=== PATIENT | male | born 1955 | race Caucasian/White ===

== ENCOUNTER 2021-05-18 08:00 | Outpatient (RCR) | payer MEDICARE, SELFPAY | END 2021-11-03 09:18 | disposition home or self-care (01) | LOC: HO.PTCHIC 08:00 | PROVIDERS: PCP Internal Medicine; Visit Provider Orthopaedic Surgery Sports Medicine | DX: M17.0 Bilateral primary osteoarthritis of knee (principal); M22.42 Chondromalacia patellae, left knee; M22.41 Chondromalacia patellae, right knee | CPT/HCPCS: 97110; 97161 ==

== ENCOUNTER 2021-06-11 07:43 | Outpatient (REF) | payer MEDICARE, SELFPAY ==
--- NOTE | ~2021-06-11 | XR_ITS ---
EXAMINATION: XR AP STANDING VIEW BILATERAL KNEES. XR KNEE, BILATERAL CLINICAL INFORMATION: Bilateral knee pain. COMPARISON: None. TECHNIQUE: AP standing views of both knees. Lateral and sunrise views of each knee. FINDINGS: Right Knee: Marked narrowing with surface remodeling of the medial compartment with mild genu varus. Marginal osteophytes and degenerative sclerosis. Small marginal osteophytes in the patellofemoral and lateral compartments and a lqlap-wa-suwxtbah joint effusion. No acute osseous abnormality. Left Knee: Marked narrowing with surface remodeling of the medial compartment with mild genu varus. Marginal osteophytes and degenerative sclerosis. Small marginal osteophytes in the patellofemoral and lateral compartments and a voteu-qu-qpumpjdh joint effusion. No acute osseous abnormality. XR/XR knee standing BI IMPRESSION: Severe medial compartment osteoarthritis of both knees with ncpxb-sf-vygvcary joint effusions. No acute abnormalities.
--- NOTE | ~2021-06-11 | XR_ITS ---
EXAMINATION: XR AP STANDING VIEW BILATERAL KNEES. XR KNEE, BILATERAL CLINICAL INFORMATION: Bilateral knee pain. COMPARISON: None. TECHNIQUE: AP standing views of both knees. Lateral and sunrise views of each knee. FINDINGS: Right Knee: Marked narrowing with surface remodeling of the medial compartment with mild genu varus. Marginal osteophytes and degenerative sclerosis. Small marginal osteophytes in the patellofemoral and lateral compartments and a jfaom-sc-xsilhraa joint effusion. No acute osseous abnormality. Left Knee: Marked narrowing with surface remodeling of the medial compartment with mild genu varus. Marginal osteophytes and degenerative sclerosis. Small marginal osteophytes in the patellofemoral and lateral compartments and a msgil-zj-fteqbhnw joint effusion. No acute osseous abnormality. XR/XR knee RT 2V IMPRESSION: Severe medial compartment osteoarthritis of both knees with mgwrs-gg-crwswfeh joint effusions. No acute abnormalities.
--- NOTE | ~2021-06-11 | XR_ITS ---
EXAMINATION: XR AP STANDING VIEW BILATERAL KNEES. XR KNEE, BILATERAL CLINICAL INFORMATION: Bilateral knee pain. COMPARISON: None. TECHNIQUE: AP standing views of both knees. Lateral and sunrise views of each knee. FINDINGS: Right Knee: Marked narrowing with surface remodeling of the medial compartment with mild genu varus. Marginal osteophytes and degenerative sclerosis. Small marginal osteophytes in the patellofemoral and lateral compartments and a nrcdb-md-wgrodplr joint effusion. No acute osseous abnormality. Left Knee: Marked narrowing with surface remodeling of the medial compartment with mild genu varus. Marginal osteophytes and degenerative sclerosis. Small marginal osteophytes in the patellofemoral and lateral compartments and a dasvc-km-jhmhpenm joint effusion. No acute osseous abnormality. XR/XR knee LT 2V IMPRESSION: Severe medial compartment osteoarthritis of both knees with pkomo-im-aoybgucb joint effusions. No acute abnormalities.
== END 2021-06-11 07:44 | disposition home or self-care (01) ==
LOC: HO.HOSX 07:43
PROVIDERS: Visit Provider Physician Assistant
DX: M17.0 Bilateral primary osteoarthritis of knee (principal)
CPT/HCPCS: 73560; 73565; 99202

== ENCOUNTER 2021-08-16 06:27 | Outpatient (REF) | payer MEDICARE, SELFPAY ==
[2021-08-16 11:53] LABS: Hematocrit 41.8 % (42.0-52.0); Hemoglobin 13.5 g/dl (14.0-18.0); Mean Corpuscular HGB Conc 32.3 g/dl (31.0-36.0); Mean Corpuscular Hemoglobin 27.3 pg (27.0-33.0); Mean Corpuscular Volume 84.4 fL (80.0-98.0); Mean Platelet Volume 9.9 fL (9.4-12.4); Platelet Count 359 X10*3/uL (160-400); Red Blood Count 4.95 X10*6/uL (4.60-5.80); Red Cell Distribution Width 12.7 % (11.0-16.0); White Blood Count 7.3 X10*3/uL (4.8-10.8)
[2021-08-16 12:15] LABS: Alanine Aminotransferase 22 U/L (0-40); Albumin Level 4.3 g/dL (3.5-5.0); Alkaline Phosphatase 87 U/L (39-117); Anion Gap 11 (12-20); Aspartate Amino Transferase 23 U/L (5-37); Bilirubin Total 0.9 mg/dL (0.0-1.0); Blood Urea Nitrogen 6 mg/dL (9-16); Calcium 9.5 mg/dL (8.4-10.2); Carbon Dioxide 30 mmol/L (22-29); Chloride 100 mmol/L (96-108); Cholesterol 165 mg/dL; Estimated Glomerular Filt Rate > 60; Glucose Fasting 111 mg/dL (60-99); HDL Cholesterol 45 mg/dL; LDL Cholesterol Calculated 92 mg/dl; Potassium 4.4 mmol/L (3.3-5.1); Sodium 137 mmol/L (135-145); Triglycerides 140 mg/dL
== END 2021-08-16 06:28 | disposition home or self-care (01) ==
LOC: HO.HMGCLDS 06:27
PROVIDERS: Visit Provider Internal Medicine
DX: Z12.5 Encounter for screening for malignant neoplasm of prostate (principal); E78.5 Hyperlipidemia, unspecified; I10 Essential (primary) hypertension
CPT/HCPCS: 36415; 80053; 80061; 84153; 85027

== ENCOUNTER → 2021-08-18 13:40 | Outpatient (BNVA) | payer MEDICARE, SELFPAY | PROVIDERS: PCP Internal Medicine; Visit Provider Orthopaedic Surgery | DX: Z13.89 Encounter for screening for other disorder (principal) ==

== ENCOUNTER → 2021-09-09 09:47 | Outpatient (BNVA) | payer MEDICARE, SELFPAY | PROVIDERS: PCP Internal Medicine; Visit Provider Physician Assistant | DX: M17.11 Unilateral primary osteoarthritis, right knee (principal) | CPT/HCPCS: 99212 ==

== ENCOUNTER 2021-09-14 07:58 | Inpatient (IN) | payer MEDICARE, SELFPAY ==
[2021-09-01 12:05] VITALS: BP 131/83; PULSE 68; RESP 18; O2SAT 97; BMI 29.5
--- NOTE | 2021-09-01 12:23 | P.CONAN_ITS ---
Documented by User: Nida Parham NP 09/13/21 09:21 HPI - Anesthesia Eval Consult details Narrative: 66yo M for Right Knee Replacement Total RISK FOR MHSon and nephew tested positive, pt never tested, never rec'd [facility] Active Problems Active Problems: All Active Problems (Updated 09/01/21 @ 12:22 by Anat Luna RN) Osteoarthritis of knees, bilateral (Acute) Hx of colonoscopy (Acute) Venous insufficiency of both lower extremities (Acute) H/O ETOH abuse (Acute) Neuropathy (Acute) Hypertension (Acute) Hyperlipidemia (Acute) Past Medical History Medical History Arthritis COVID-19 vaccine series completed Esophageal stricture Family history of malignant hyperthermia H/O ETOH abuse Hyperlipidemia Hypertension Neuropathy Osteoarthritis of right knee Peripheral neuropathy Venous insufficiency of both lower extremities Family History Family history of problems with anesthesia: Yes (1 of 2 children have MH, nephew with MH, Pt never tested) Surgical History Surgical History History of esophagogastroduodenoscopy (EGD) Hx of colonoscopy History of Problems with Anesthesia: No Social History Social History Household Members Other:: , 2 sons Housing: House Are you a primary care process manager to a significant other at home: No Do you presently have visiting nurse or other home services: No Patient Tobacco Use Status: Former Tobacco user (25 years ago ) Quit Date: 1996 Tobacco use type: Cigarette Years Smoked: 27 Use of substances other than those prescribed or required for medical reasons: Yes Substance Use Type Other:: edibles on occasion Substance Use Frequency: Occasionally Have you been hit, kicked, punched, or otherwise hurt by someone within the past year? If so, by whom?: No Are you DNR?: Yes Advance Directives: No Advance Directives Information Provided: Yes (brochure given) Advance Directives on File: No Recently lost weight without trying: No Eating poorly because of decreased appetite: No Nutrition Risks: No Nutritional Risk Poor oral hygiene: No (lower partial / full upper denture) Current occupational status: retired Current occupation: rt handed Narrative Narrative: No recent illness No CP/SOB with walking on flat ground. Activity limited to pain Meds Allergies Allergy/AdvReac Type Severity Reaction Status Date / Time venlafaxine [From EFFEXOR] AdvReac Intermediate itching/scarlett Verified 09/14/21 08:13 h Home Medications Medication Instructions Recorded Confirmed Last Taken Type atenolol 50 mg tablet 50 mg PO DAILY 06/11/21 09/09/21 09/14/21 06:30 History atorvastatin 20 mg tablet 20 mg PO BEDTIME 06/11/21 09/09/21 Unknown History gabapentin 800 mg tablet 800 mg PO TID 06/11/21 09/09/21 09/14/21 06:30 History lisinopril 40 mg tablet 40 mg PO DAILY 06/11/21 09/09/21 Unknown History amlodipine 5 mg tablet 7.5 mg PO DAILY 08/13/21 09/09/21 09/14/21 06:30 History omeprazole 20 mg capsule,delayed 20 mg PO DAILY 08/13/21 09/09/21 09/14/21 06:30 History release elderberry fruit 460 mg-elderberry 1 cap PO DAILY 09/01/21 09/09/21 Unknown History flower 115 mg capsule tramadol 50 mg tablet 50 mg PO BID 09/01/21 09/09/21 Unknown History vitamin B complex 1 tab PO DAILY 09/01/21 09/09/21 Unknown History Exam Exam Date and Time: September 01, 2021 1223 Height,Weight and Vital Signs: Height 6 ft 3 in Weight 107.048 kg Last Vital Signs Pulse 68 09/01/21 12:05 Resp 18 09/01/21 12:05 BP 131/83 09/01/21 12:05 Pulse Ox 97 09/01/21 12:05 Pertinent Lab Results Pertinent Lab Results: Laboratory Tests 08/16/21 08/16/21 06:35 06:35 WBC 7.3 Hgb 13.5 L Hct 41.8 L Plt Count 359 Sodium 137 Potassium 4.4 Chloride 100 Carbon Dioxide 30 H BUN 6 L Creatinine 0.81 Narrative Narrative: EKG 07/2021 NSR @ 70 Airway Mallampati Class: III TM Dist: >3cm Neck ROM: Full Denture: Upper Partial: Lower Loose/Missing/Broken Teeth: Yes Heart: RRR Lungs: CTAB Assessment and Plan Assessment Anesthesia Assessment: Anesthesia Plan Discussed and PAT Visit Final Anesthetic Review Family History of Problems with Anesthesia: Yes (1 of 2 children have MH, nephew with MH, Pt never tested) History of Problems with Anesthesia: No Documented by User: Kodak Phan MD 09/14/21 10:02 [facility] Past Medical History Medical History Arthritis COVID-19 vaccine series completed Esophageal stricture Family history of malignant hyperthermia H/O ETOH abuse Hyperlipidemia Hypertension Neuropathy Osteoarthritis of right knee Peripheral neuropathy Venous insufficiency of both lower extremities Surgical History Surgical History History of esophagogastroduodenoscopy (EGD) Hx of colonoscopy Social History Social History Household Members Other:: , 2 sons Housing: House Are you a primary care process manager to a significant other at home: No Do you presently have visiting nurse or other home services: No Patient Tobacco Use Status: Former Tobacco user (25 years ago ) Quit Date: 1996 Tobacco use type: Cigarette Years Smoked: 27 Use of substances other than those prescribed or required for medical reasons: Yes Substance Use Type Other:: edibles on occasion Substance Use Frequency: Occasionally Have you been hit, kicked, punched, or otherwise hurt by someone within the past year? If so, by whom?: No Are you DNR?: Yes Advance Directives: No Advance Directives Information Provided: Yes (brochure given) Advance Directives on File: No Recently lost weight without trying: No Eating poorly because of decreased appetite: No Nutrition Risks: No Nutritional Risk Poor oral hygiene: No (lower partial / full upper denture) Current occupational status: retired Current occupation: rt handed Meds Allergies Allergy/AdvReac Type Severity Reaction Status Date / Time venlafaxine [From EFFEXOR] AdvReac Intermediate itching/scarlett Verified 09/14/21 08:13 h Home Medications Medication Instructions Recorded Confirmed Last Taken Type atenolol 50 mg tablet 50 mg PO DAILY 06/11/21 09/09/21 09/14/21 06:30 History atorvastatin 20 mg tablet 20 mg PO BEDTIME 06/11/21 09/09/21 Unknown History gabapentin 800 mg tablet 800 mg PO TID 06/11/21 09/09/21 09/14/21 06:30 History lisinopril 40 mg tablet 40 mg PO DAILY 06/11/21 09/09/21 Unknown History amlodipine 5 mg tablet 7.5 mg PO DAILY 08/13/21 09/09/21 09/14/21 06:30 History omeprazole 20 mg capsule,delayed 20 mg PO DAILY 08/13/21 09/09/21 09/14/21 06:30 History release elderberry fruit 460 mg-elderberry 1 cap PO DAILY 09/01/21 09/09/21 Unknown History flower 115 mg capsule tramadol 50 mg tablet 50 mg PO BID 09/01/21 09/09/21 Unknown History vitamin B complex 1 tab PO DAILY 09/01/21 09/09/21 Unknown History Assessment and Plan Final Anesthetic Review NPO: Yes ASA Class: III Final Preanesthetic Review: No Changes in Pt Med Stat, Meds/Allgs Chart Reviewed, Consent Obtained/Reviewed and Anes Risks/Benef Reviewed Patient Risk: Intermediate Procedure Risk: Intermediate Anesthetic Plan Anesthetic Plan: MAC:, Spinal, Regional Block and Other (Clean technique) Disposition: Standard PACU
[2021-09-01 15:01] LABS: MRSA Nasal PCR NEGATIVE (Negative); SA Nasal PCR POSITIVE (Negative)
[2021-09-14] VITALS (22 sets, daily range): BP systolic 101–195; BP diastolic 55–111; PULSE 50–80; RESP 10–20; TEMP 36.1–37.1; O2SAT 94–100
--- NOTE | ~2021-09-14 | XR_ITS ---
EXAMINATION: XR KNEE, RIGHT CLINICAL INFORMATION: Right knee replacement COMPARISON: Previous x-ray June 2021 TECHNIQUE: 2 views of the right knee. FINDINGS: There is a new 3 component right knee replacement in satisfactory position. No fracture or dislocation is seen. There are cystic or erosive changes of the lateral femoral condyle similar to previous exam. There are postoperative changes to the soft tissues. XR/XR knee RT 2V IMPRESSION: Satisfactory appearance of right knee replacement.
--- NOTE | 2021-09-14 07:36 | MHC.SHP ---
Pre-Procedural Eval Section A Date of Service: 09/14/21 The patient is an INPATIENT: No Changes since office visit: Yes Patient answered all questions; No Cold of Flu in the past 2 weeks, No New Medical Problems and No Changes in Medication The History & Physical has been completed within 30 days and I have reviewed it.: Yes Section B Chief Complaint: osteoarthritis Allergies: Allergies Allergy/AdvReac Type Severity Reaction Status Date / Time venlafaxine [From EFFEXOR] AdvReac Intermediate itching/scarlett Verified 09/09/21 09:57 h Plan I have reviewed the history and physical and performed a pertinent physical examination on my patient. No changes have occurred unless specified.
[2021-09-14] MEDS: Lactated Ringers 1,000 ML 100 ML IVCONT ×2 (08:40→15:05)
[2021-09-14 08:45] LABS: COVID-19 Test Negative (Negative)
--- NOTE | 2021-09-14 11:05 | PM.OP ---
Brief Operative Note Date of Service: 09/14/21 Pre-op diagnosis: right knee OA Post-op diagnosis: same Procedure: Right TKA Implants: Darren triathalon press fit cruciate retaining 12/06/12/35a Surgeon: Edy Walton MD Anesthesia: regional and spinal Was an Metal Fabricating Inspector used for this Procedure?: Yes Metal Fabricating Inspector: Kallie Aguilar Estimated blood loss (mL): 150 IV fluids (mL): 1,000 Pathology: other Condition: stable Disposition: PACU
--- NOTE | 2021-09-14 11:07 | W.PM.OPN ---
Operative Note Operative Note Date of Service: 09/14/21 Narrative: Pre-op diagnosis: right knee OA Post-op diagnosis: same Procedure: Right TKA Implants: [place] triathalon press fit cruciate retaining 12/06/13cr/35a Surgeon: Edy Walton MD Anesthesia: regional and spinal Was an Refinery Operator Visbreaking used for this Procedure?: Yes Refinery Operator Visbreaking: Kallie Aguilar Estimated blood loss (mL): 150 IV fluids (mL): 1,000 Pathology: other Condition: stable Disposition: PACU Procedure in detail: The patient was brought to the operating room and prepped and draped in standard sterile fashion. A time-out was called to identify proper site proper procedure proper surgeon and IV antibiotics were administered. 1 g of IV tranexamic acid was administered. I began by making a midline incision to the retinaculum and performed a medial parapatellar arthrotomy. The patella was translated laterally and the knee was flexed up. The medial compartment was eburnated. I performed a small medial peel and resected the infrapatellar fat pad. Kearney's line was then used to drill my intramedullary femoral guide and my distal femur cut of 11 mm was made in 5 degrees of valgus while protecting the soft tissues. I then measured a # 6 femur and placed my cutting guide and made my anterior posterior and chamfer cuts protecting the soft tissues at all times. Once I was satisfied with my cuts I turned my attention to the tibia. I removed the meniscus medially and laterally and , using an external cutting guide, in line with the tibial crest and the third ray, I made my distal tibial cut in 3 deg slope of while protecting the PCL the posterior soft tissues at all times. An extension block was used to confirm appropriate amount of bony resection. I then sized a #6 tibia and once I was satisfied that there was complete tibial coverage I placed my trial and with the trial femur in place took the knee through range of motion. I was satisfied with the extension and flexion as well as the stability and soft tissue tension at 0, 30 and 90 degrees. I then turned my attention to the patella where I removed 1 cm from the undersurface of the patella and then trialed a 35a patellar button. Again the knee was taken through range of motion I was satisfied with the tracking. I then returned to the femur and drilled my femoral lug holes and prepared the tibia. A femoral bone plug was placed and the knee was irrigated copiously. I then used a werewolf hemostasis wand to cauterize the capsule and meniscal beds circumferentially and the suprapatellar pouch and any bleeding tissue. I then press fit the patella, tibia and femur in standard fashion. I trialed different inserts until I selected a #13 insert. The final insert was placed and a 3 minutes iodine soak with local TXA was performed. The knee was then closed with a running Quill suture, a 3 0 Vicryl and clark on the skin. Patient was then placed in sterile dressing and brought to recovery room in stable condition there were no known complications.
[2021-09-14] MEDS: HYDROmorphone HCl 0.5 MG/0.5 ML SYRINGE 0.25 MG IVPUSH ×4 (12:58→14:04)
[2021-09-14] MEDS: oxyCODONE HCl Immed Release 5 MG TABLET PO (12:59)
[2021-09-14] MEDS: Ketorolac Tromethamine 30 MG/ML VIAL 15 MG IVPUSH (14:14)
[2021-09-14] MEDS: Acetaminophen 325 MG TABLET 975 MG PO (14:14)
[2021-09-14] MEDS: HYDROmorphone HCl 0.5 MG/0.5 ML SYRINGE IVPUSH (14:55)
[2021-09-14] MEDS: ceFAZolin Sodium/Dextrose,Iso 2 GM/50 ML PIGGYBACK IV ×2 (15:12→16:50)
--- NOTE | 2021-09-14 15:57 | PHA.MEDREC ---
Pharmacy Consult ? Medication Reconciliation Pharmacy has completed the medication reconciliation.
[2021-09-14] MEDS: HYDROmorphone HCl 1 MG/ML SYRINGE 0.25 MG IVPUSH (17:46)
[2021-09-14] MEDS: Gabapentin 400 MG CAPSULE 800 MG PO ×2 (17:47→20:04)
--- NOTE | 2021-09-14 18:15 | P.CONHOSP_ITS ---
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 Review of Systems Review of Systems: General no headache, no dizziness no fever chills. CVS no chest pain, no palpitation. Respiratory no cough, no sob. Gastrointestinal no nausea, no vomiting, no abdominal pain no urinary urgency, no frequency Skin no rash Yes all other systems are reviewed and are negative [facility] Medical History Arthritis COVID-19 vaccine series completed Esophageal stricture Family history of malignant hyperthermia H/O ETOH abuse Hyperlipidemia Hypertension Neuropathy Osteoarthritis of right knee Peripheral neuropathy Venous insufficiency of both lower extremities Surgical History History of esophagogastroduodenoscopy (EGD) Hx of colonoscopy Social History Household Members: Family Household Members Other:: , 2 sons Housing: House Are you a primary adult live in caregiver to a significant other at home: No Do you presently have visiting nurse or other home services: No Patient Tobacco Use Status: Former Tobacco user Quit Date: 1996 Tobacco use type: Cigarette Years Smoked: 27 Use of substances other than those prescribed or required for medical reasons: Yes Substance Use Type Other:: edibles on occasion Substance Use Frequency: Occasionally Have you been hit, kicked, punched, or otherwise hurt by someone within the past year? If so, by whom?: No Do you feel safe in your current relationship?: Yes Are you DNR?: Yes Advance Directives: No Advance Directives Information Provided: Yes (brochure given) Advance Directives on File: No Do you have thoughts of harming others: None Do you have a plan to hurt others: No Plan Recently lost weight without trying: No Eating poorly because of decreased appetite: No Nutrition Risks: No Nutritional Risk Poor oral hygiene: No (lower partial / full upper denture) Current occupational status: retired Current occupation: rt handed Meds Allergies Allergy/AdvReac Type Severity Reaction Status Date / Time venlafaxine [From EFFEXOR] AdvReac Intermediate itching/scarlett Verified 09/14/21 08:13 h Active Medications: Current Medications Acetaminophen (Acetaminophen 325 Mg Tablet) 650 mg PO Q6H PRN PRN Reason: Pain, Mild (Pain Scale 1-3) Amlodipine Besylate (Amlodipine Besylate 2.5 Mg Tablet) 7.5 mg PO DAILY [facility]; Protocol Aspirin (Aspirin 325 Mg Tablet) 325 mg PO BID [facility] Atenolol (Atenolol 50 Mg Tablet) 50 mg PO DAILY [facility]; Protocol Atorvastatin Calcium (Atorvastatin Calcium 20 Mg Tablet) 20 mg PO BEDTIME [facility] Celecoxib (Celecoxib 200 Mg Capsule) 200 mg PO BID [facility] Docusate Sodium (Docusate Sodium 100 Mg Capsule) 100 mg PO BID [facility] Gabapentin (Gabapentin 400 Mg Capsule) 800 mg PO TID [facility] Last Admin: 09/14/21 17:47 Dose: 800 mg Documented by: Hydromorphone HCl (Hydromorphone Hcl 1 Mg/Ml Syringe) 0.25 mg IVPUSH Q4H PRN; Protocol PRN Reason: Pain, Severe (Pain Scale 7-10) Last Admin: 09/14/21 17:46 Dose: 0.25 mg Documented by: Lactated Ringer's (Lr) 1,000 mls @ 100 mls/hr IVCONT .Q10H [facility] Last Admin: 09/14/21 15:05 Dose: 100 mls/hr Documented by: Lisinopril (Lisinopril 40 Mg Tablet) 40 mg PO DAILY [facility]; Protocol Omeprazole (Omeprazole 20 Mg Capsule.Dr) 20 mg PO DAILY@0630 [facility] Ondansetron HCl (Ondansetron Hcl 4 Mg/2 Ml Vial) 4 mg IVPUSH Q8H PRN PRN Reason: Nausea and Vomiting Oxycodone HCl (Oxycodone Hcl Immed Release 5 Mg Tablet) 10 mg PO Q4H PRN PRN Reason: Pain, Moderate (Pain Scale 4-6 Oxycodone HCl (Oxycodone Hcl Er 10 Mg Tab.Er.12h) 10 mg PO BID [facility] Sodium Chloride (0.9 % Sodium Chloride Flush 3 Ml Syringe) 3 ml IVFLUSH QSHIFT [facility] Last Admin: 09/14/21 17:51 Dose: Not Given Documented by: Home Medications Medication Instructions Recorded Confirmed Last Taken Type atenolol 50 mg tablet 50 mg PO DAILY 06/11/21 09/09/21 09/14/21 06:30 History atorvastatin 20 mg tablet 20 mg PO BEDTIME 06/11/21 09/14/21 Unknown History gabapentin 800 mg tablet 800 mg PO TID 06/11/21 09/09/21 09/14/21 06:30 History lisinopril 40 mg tablet 40 mg PO DAILY 06/11/21 09/14/21 Unknown History amlodipine 5 mg tablet 7.5 mg PO DAILY 08/13/21 09/09/21 09/14/21 06:30 History omeprazole 20 mg capsule,delayed 20 mg PO DAILY 08/13/21 09/09/21 09/14/21 06:30 History release elderberry fruit 460 mg-elderberry 1 cap PO DAILY 09/01/21 09/14/21 Unknown History flower 115 mg capsule tramadol 50 mg tablet 50 mg PO BID 09/01/21 09/14/21 Unknown History vitamin B complex 1 tab PO DAILY 09/01/21 09/14/21 Unknown History Physical Exam Vital Signs and Narrative: Vital Signs: Last Vital Signs Temp 97.1 F 09/14/21 16:02 Pulse 67 09/14/21 16:02 Resp 17 09/14/21 16:02 BP 171/88 H 09/14/21 16:02 Pulse Ox 96 09/14/21 16:02 BMI result Body Mass Index 29.5 Const: Other: General appears to be in mild distress due to pain HEENT pupils equal round reactive to light and accommodation Neck supple, no JVD. CVS regular rate rhythm, Respiratory lungs clear to auscultation, no respiratory distress, no wheeze, no rhonchi. Gastrointestinal abdomen soft, nontender, bowel sounds audible Extremities no edema. Neuro nonfocal, cranial nerve 2-12 intact, speech clear, no tremor Skin no rash Psych appropriate affect Results Labs Labs: Laboratory Results - last 24 hr 09/14/21 08:05 COVID-19 ([facility]) Negative COVID-19 Clin Com See Note Imaging Radiologist's Impressions: Impressions Knee X-Ray 09/14/21 12:22 IMPRESSION: Satisfactory appearance of right knee replacement. Assessment and Plan (1) H/O ETOH abuse: Status: Acute (2) Neuropathy: Status: Acute (3) Hypertension: Status: Acute (4) Hyperlipidemia: Status: Acute (5) Osteoarthritis of right knee: Status: Acute Plan 66-year-old gentleman with past medical history of hypertension, hyperlipidemia, 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 Right total knee arthroplasty postoperative day 0 Complaining of right knee pain not controlled with current pain medication, on OxyContin 10 mg b.i.d., Celebrex, oxycodone as needed, and low-dose IV Dilaudid 0.25 mg q.4 hours as needed Recommend to increase dose of Dilaudid to 1 mg q.4 hours as needed Encourage use of incentive spirometry, continue stool softeners follow CBC Recommend to DC IV fluids once tolerating diet. 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 as per Ortho Thank you for allowing us to participate in the care of this patient will continue to follow patient along with you
[2021-09-14] MEDS: Celecoxib 200 MG CAPSULE PO (20:04)
[2021-09-14] MEDS: Atorvastatin Calcium 20 MG TABLET PO (20:04)
[2021-09-14] MEDS: Docusate Sodium 100 MG CAPSULE PO (20:04)
[2021-09-14] MEDS: oxyCODONE HCl ER 10 MG TAB.ER.12H PO (20:04)
[2021-09-15] MEDS: Lactated Ringers 1,000 ML 100 ML IVCONT (01:15)
[2021-09-15 03:38] VITALS: BP 142/86; PULSE 73; RESP 17; TEMP 36.9; O2SAT 94
[2021-09-15 06:14] LABS: MANUAL DIFF FLAG NO
[2021-09-15] MEDS: HYDROmorphone HCl 1 MG/ML SYRINGE 0.25 MG IVPUSH (06:15)
[2021-09-15 06:21] LABS: Basophils Percent Auto 0.1 % (0-2); Eosinophils Percent Auto 0.1 % (0-4); Hematocrit 36.2 % (42.0-52.0); Hemoglobin 11.7 g/dl (14.0-18.0); Imm Gran Abs Auto 0.07 X10*3/uL (0.00-0.03); Imm Gran Pct Auto 0.5 % (0.0-0.4); Lymphocytes Absolute Auto 1.5 X10*3/uL (1.2-4.9); Lymphocytes Percent Auto 10.5 % (20-40); Mean Corpuscular HGB Conc 32.3 g/dl (31.0-36.0); Mean Corpuscular Hemoglobin 27.9 pg (27.0-33.0); Mean Corpuscular Volume 86.4 fL (80.0-98.0); Mean Platelet Volume 9.8 fL (9.4-12.4); Monocytes Absolute Auto 1.4 X10*3/uL (0.1-1.2); Monocytes Percent Auto 10.4 % (2-11); Neutrophils Absolute Auto 10.8 x10*3/uL (2.0-8.3); Neutrophils Percent Auto 78.4 % (45-73); Platelet Count 312 X10*3/uL (160-400); Red Blood Count 4.19 X10*6/uL (4.60-5.80); White Blood Count 13.8 X10*3/uL (4.8-10.8)
[2021-09-15] MEDS: Omeprazole 20 MG CAPSULE.DR PO (06:34)
[2021-09-15 06:44] LABS: Anion Gap 11 (12-20); Blood Urea Nitrogen 11 mg/dL (9-16); Calcium 9.1 mg/dL (8.4-10.2); Carbon Dioxide 28 mmol/L (22-29); Chloride 104 mmol/L (96-108); Estimated Glomerular Filt Rate > 60; Glucose Fasting 106 mg/dL (60-99); Potassium 5.4 mmol/L (3.3-5.1); Sodium 138 mmol/L (135-145)
--- NOTE | 2021-09-15 06:56 | PHA.MEDREC ---
Pharmacy Consult ? Medication Reconciliation Pharmacy has reviewed the medication reconciliation.
[2021-09-15 07:20] VITALS: BP 164/84; PULSE 76; RESP 16; TEMP 37.6; O2SAT 97
[2021-09-15] MEDS: Acetaminophen 325 MG TABLET 650 MG PO (07:31)
[2021-09-15] MEDS: Celecoxib 200 MG CAPSULE PO (07:32)
[2021-09-15] MEDS: oxyCODONE HCl Immed Release 5 MG TABLET 10 MG PO ×2 (07:32→11:22)
[2021-09-15] MEDS: Gabapentin 400 MG CAPSULE 800 MG PO (07:33)
[2021-09-15] MEDS: lisinopriL 40 MG TABLET PO (07:33)
[2021-09-15] MEDS: amLODIPine Besylate 2.5 MG TABLET 7.5 MG PO (07:34)
[2021-09-15] MEDS: Docusate Sodium 100 MG CAPSULE PO (07:34)
[2021-09-15] MEDS: atenoloL 50 MG TABLET PO (07:34)
--- NOTE | 2021-09-15 08:08 | P.PNOP_ITS ---
Subjective Subjective Date of Service: 09/15/21 Interval history: POD 1 s/p RT TKA No overnight events resting in bed, pain is tolerable denies sob, cp, palpitations Physical Exam Vital Signs: Vital Signs: Last Vital Signs Temp 99.7 F 09/15/21 07:20 Pulse 76 09/15/21 07:20 Resp 16 09/15/21 07:20 BP 164/84 H 09/15/21 07:20 Pulse Ox 97 09/15/21 07:20 BMI result Body Mass Index 29.5 Const: General: cooperative, healthy appearing and no acute distress Resp: Effort & Inspection: normal respiratory effort and able to speak in complete sentences Cardio: Rate: regular rate Peripheral pulses: Peripheral pulses 2+ throughout GI: Palpation (GI): Soft to palpation Skin: General skin exam: no rashes or lesions noted Extrem: Other: Right knee bandage c/d/i. no erythema, mild swelling. Calf supple non tender. Procedures Date of Service Date of Service: 09/15/21 Progress Note: A&P Assessment and plan (1) Status post total right knee replacement: Status: Acute Assessment and Plan: * Continue pain mgmnt * Begin Aspirin for dvt ppx * begin PT for RT TKA * Dispo planning-Pending PT eval, pain mgmnt Fall Risk Details Current Medications: Current Medications Acetaminophen (Acetaminophen 325 Mg Tablet) 650 mg PO Q6H PRN PRN Reason: Pain, Mild (Pain Scale 1-3) Last Admin: 09/15/21 07:31 Dose: 650 mg Documented by: Amlodipine Besylate (Amlodipine Besylate 2.5 Mg Tablet) 7.5 mg PO DAILY [facility]; Protocol Last Admin: 09/15/21 07:34 Dose: 7.5 mg Documented by: Aspirin (Aspirin 325 Mg Tablet) 325 mg PO BID [facility] Atenolol (Atenolol 50 Mg Tablet) 50 mg PO DAILY [facility]; Protocol Last Admin: 09/15/21 07:34 Dose: 50 mg Documented by: Atorvastatin Calcium (Atorvastatin Calcium 20 Mg Tablet) 20 mg PO BEDTIME [facility] Last Admin: 09/14/21 20:04 Dose: 20 mg Documented by: Celecoxib (Celecoxib 200 Mg Capsule) 200 mg PO BID [facility] Last Admin: 09/15/21 07:32 Dose: 200 mg Documented by: Docusate Sodium (Docusate Sodium 100 Mg Capsule) 100 mg PO BID [facility] Last Admin: 09/15/21 07:34 Dose: 100 mg Documented by: Gabapentin (Gabapentin 400 Mg Capsule) 800 mg PO TID [facility] Last Admin: 09/15/21 07:33 Dose: 800 mg Documented by: Hydromorphone HCl (Hydromorphone Hcl 1 Mg/Ml Syringe) 0.25 mg IVPUSH Q4H PRN; Protocol PRN Reason: Pain, Severe (Pain Scale 7-10) Last Admin: 09/15/21 06:15 Dose: 0.25 mg Documented by: Lactated Ringer's (Lr) 1,000 mls @ 100 mls/hr IVCONT .Q10H [facility] Last Admin: 09/15/21 01:15 Dose: 100 mls/hr Documented by: Lisinopril (Lisinopril 40 Mg Tablet) 40 mg PO DAILY [facility]; Protocol Last Admin: 09/15/21 07:33 Dose: 40 mg Documented by: Omeprazole (Omeprazole 20 Mg Capsule.Dr) 20 mg PO DAILY@0630 [facility] Last Admin: 09/15/21 06:34 Dose: 20 mg Documented by: Ondansetron HCl (Ondansetron Hcl 4 Mg/2 Ml Vial) 4 mg IVPUSH Q8H PRN PRN Reason: Nausea and Vomiting Oxycodone HCl (Oxycodone Hcl Immed Release 5 Mg Tablet) 10 mg PO Q4H PRN PRN Reason: Pain, Moderate (Pain Scale 4-6 Last Admin: 09/15/21 07:32 Dose: 10 mg Documented by: Oxycodone HCl (Oxycodone Hcl Er 10 Mg Tab.Er.12h) 10 mg PO BID [facility] Last Admin: 09/14/21 20:04 Dose: 10 mg Documented by: Sodium Chloride (0.9 % Sodium Chloride Flush 3 Ml Syringe) 3 ml IVFLUSH QSHIFT [facility] Last Admin: 09/15/21 07:34 Dose: Not Given Documented by: Time Spent With Patient Time: Total time spent is greater than 50% in coordination of care (as documented) at patient's floor/unit and/or counseling patient: Time with patient: less than 15 minutes Quality Stroke Does the patient have a stroke diagnosis?: No VTE Prior VTE?: No VTE Risk Level:: Surgical - very high VTE Device Contraindication: N/A - Device Ordered VTE Drug Contraindication: N/A - Med Ordered
[2021-09-15 08:40] VITALS: BP 164/84; PULSE 76; O2SAT 97
[2021-09-15] MEDS: oxyCODONE HCl ER 10 MG TAB.ER.12H PO (09:05)
[2021-09-15] MEDS: Aspirin 325 MG TABLET PO (09:06)
--- NOTE | 2021-09-15 09:47 | MHC.CM.PN ---
PATIENT IS FULLY INDEPENDENT HE LIVES WITH /NEW HCP DOCUMENT TO BE COMPLETED AND COPY PLACED IN CHART. PLAN IS HOME TODAY WITH [facility] AND ASKS FOR A REFERRAL TO [facility], NOW PLACED. PATIENT IS COVID VACCINATED X 3 WITH [facility] BEING ON SEPTEMBER 142020. HE DOES NOT HAVE HIS WALLET AND IS UNABLE TO RECALL THE OTHER DATES ALL SHOTS WERE MODERNA SERIES. IMM 09/15 IN CHART
[2021-09-15 10:30] VITALS: BP 164/84; PULSE 76; O2SAT 97
[2021-09-15 12:00] VITALS: BP 111/69; PULSE 66; RESP 20; TEMP 37.4; O2SAT 97
--- NOTE | 2021-09-15 12:07 | PM.DS ---
DS: Providers Provider Date of Service: 09/15/21 Date of admission: 09/14/21 07:58 Primary care physician: Radha Aguayo MD Consults: 09/14/21 16:48 Consult to Hospitalist Routine Consulting Provider: Hospitalist Reason For Exam: medical management DS: Diagnosis Discharge Diagnosis (1) Status post total right knee replacement: Status: Acute DS: Summary Hospital Course Hospital Course: The patient underwent a successful right total knee arthroplasty, was transferred to PACU and then to the floor to recover. During their stay, their vitals were stable, afebrile at 99.3. Labs were unremarkable, H/H 11.7/36.2 . POD 1 he was started on ASA for DVT ppx, they also received services twice a day. Prior to discharge, their dressing was change, incision clean dry and intact, new Aquacel dressing applied and the plan was to be discharged home with vna svs Time Spent with Patient Time attestation: Total time spent providing and/or coordinating discharge services: Discharge coordination time: Less than 30 minutes Quality: Stroke Does the patient have a stroke diagnosis?: No Physical Exam Vital Signs: Vital Signs: Last Vital Signs Temp 99.7 F 09/15/21 07:20 Pulse 76 09/15/21 10:30 Resp 16 09/15/21 07:20 BP 164/84 H 09/15/21 10:30 Pulse Ox 97 09/15/21 10:30 BMI result Body Mass Index 29.5 Const: General: cooperative, healthy appearing and no acute distress Resp: Effort & Inspection: normal respiratory effort and able to speak in complete sentences Cardio: Rate: regular rate Peripheral pulses: Peripheral pulses 2+ throughout GI: Palpation (GI): Soft to palpation Skin: General skin exam: no rashes or lesions noted Extrem: Other: incision clean dry and intact. Coy intact. No erythema or joint effusion. Calf supple nontender. Neurovascularly intact. DS: Data Data Completed and Pending Pending studies at discharge: Pending at discharge 09/14/21 10:37 Surgical [PTH] Routine Labs on day of discharge: Laboratory Results - last 24 hr 09/15/21 09/15/21 05:45 05:45 WBC 13.8 H RBC 4.19 L Hgb 11.7 L Hct 36.2 L MCV 86.4 MCH 27.9 MCHC 32.3 RDW 13.0 Plt Count 312 MPV 9.8 Immature Gran % (Auto) 0.5 H Neut % (Auto) 78.4 H Lymph % (Auto) 10.5 L [place] % (Auto) 10.4 Eos % (Auto) 0.1 Baso % (Auto) 0.1 Lymph # (Auto) 1.5 [place] # (Auto) 1.4 H Eos # (Auto) 0.0 Baso # (Auto) 0.0 Abs Immat Gran (auto) 0.07 H Absolute Neuts (auto) 10.8 H Absolute Nucleated RBC 0.000 Nucleated RBC % (auto) 0.0 Sodium 138 Potassium 5.4 H D Chloride 104 Carbon Dioxide 28 Anion Gap 11 L BUN 11 D Creatinine 0.76 Estim Creat Clear Calc 123.0 Estimated GFR > 60 Fasting Glucose 106 H Calcium 9.1 Discharge Plan Discharge Patient Disposition: Home Health Service Discharge Diagnosis: RT TKA Referrals: Kallie Aguilar PA-C [Physician Hat Finisher] - 2 Weeks (09/30/21 12:30 [facility] [place] [facility] Kallie Aguilar PA-C) Discharge Medications: New docusate sodium 100 mg Capsule 100 mg PO BID 14 Days Qty: 28 0RF oxycodone 10 mg tablet 10 mg PO Q4H PRN (Reason: Pain, Moderate (Pain Scale 4-6) 7 Days Qty: 42 0RF celecoxib 200 mg Capsule 200 mg PO BID 30 Days Qty: 60 0RF acetaminophen 325 mg Tablet 650 mg PO Q6H PRN (Reason: Pain, Mild (Pain Scale 1-3)) 30 Days Qty: 240 0RF aspirin 325 mg Tablet 325 mg PO BID 42 Days Qty: 84 0RF Continued vitamin B complex Tablet 1 tab PO DAILY 0RF elderberry fruit and flower 460-115 mg Capsule 1 cap PO DAILY 0RF amlodipine 5 mg tablet 7.5 mg PO DAILY 0RF omeprazole 20 mg capsule,delayed release(DR/EC) 20 mg PO DAILY 0RF atenolol 50 mg tablet 50 mg PO DAILY 0RF lisinopril 40 mg tablet 40 mg PO DAILY 0RF gabapentin 800 mg tablet 800 mg PO TID 0RF atorvastatin 20 mg tablet 20 mg PO BEDTIME 0RF (DME[facility] See Rx Instructions .ROUTE .MEDSUPPLY Qty: 1 0RF Rx Instructions: Folding front wheeled walker Discontinued tramadol 50 mg tablet 50 mg PO BID 0RF Discharge Orders: Discharge Order (Routine); Ordered 09/15/21 Ordered By: Kallie Aguilar Diet: regular diet Activity on Discharge: Use cane or walker Stand Alone Forms: Patient Portal Discharge page Care Plan Goals: Restore function of joint Health Concerns: None Plan of Treatment: Physical Therapy Pain management DVT prophylaxis Assessment: Physical Therapy for Total knee arthroplasty: gait training, ROM 0-12, quad strength Limit stair climbing No showering, no tub bath-keep dressing clean, dry and intact No driving x6 weeks Continue Aspirin twice a day x 6 weeks Follow up with [facility] [place] Orthopedics in 2 weeks Discharge Date/Time: 09/15/21 14:04
--- NOTE | 2021-09-15 12:56 | HO.PM.IMPN ---
Subjective Subjective Date of Service: 09/15/21 Interval History: Complaining of persistent right knee pain otherwise no other acute events overnight no nausea no vomiting, tolerating diet no chest pain, no palpitations, no headache or dizziness. Review of Systems Review of Systems: Yes all other systems are reviewed and are negative Physical Exam Vital Signs: Vital Signs: Last Vital Signs Temp 99.3 F 09/15/21 12:00 Pulse 66 09/15/21 12:00 Resp 20 09/15/21 12:00 BP 111/69 09/15/21 12:00 Pulse Ox 97 09/15/21 12:00 BMI result Body Mass Index 29.5 Const: Other: General awake alert, no distress Neck supple, no JVD. CVS? regular rate rhythm, Respiratory lungs clear to auscultation, no respiratory distress, no wheeze, no rhonchi. Gastrointestinal abdomen soft, nontender, bowel sounds audible Extremities no edema. Right knee dressing in place. Neuro nonfocal, cranial nerve 2-12 intact, speech clear, no tremor Skin no rash Psych appropriate affect Objective Data Active Medications Acetaminophen (Acetaminophen 325 Mg Tablet) 650 mg PO Q6H PRN PRN Reason: Pain, Mild (Pain Scale 1-3) Last Admin: 09/15/21 07:31 Dose: 650 mg Documented by: SUPRIYA Amlodipine Besylate (Amlodipine Besylate 2.5 Mg Tablet) 7.5 mg PO DAILY [facility]; Protocol Last Admin: 09/15/21 07:34 Dose: 7.5 mg Documented by: SUPRIYA Aspirin (Aspirin 325 Mg Tablet) 325 mg PO BID [facility] Last Admin: 09/15/21 09:06 Dose: 325 mg Documented by: SUPRIYA Atenolol (Atenolol 50 Mg Tablet) 50 mg PO DAILY [facility]; Protocol Last Admin: 09/15/21 07:34 Dose: 50 mg Documented by: SUPRIYA Atorvastatin Calcium (Atorvastatin Calcium 20 Mg Tablet) 20 mg PO BEDTIME [facility] Last Admin: 09/14/21 20:04 Dose: 20 mg Documented by: NATALIE Celecoxib (Celecoxib 200 Mg Capsule) 200 mg PO BID [facility] Last Admin: 09/15/21 07:32 Dose: 200 mg Documented by: SUPRIYA Docusate Sodium (Docusate Sodium 100 Mg Capsule) 100 mg PO BID [facility] Last Admin: 09/15/21 07:34 Dose: 100 mg Documented by: SUPRIYA Gabapentin (Gabapentin 400 Mg Capsule) 800 mg PO TID [facility] Last Admin: 09/15/21 07:33 Dose: 800 mg Documented by: SUPRIYA Hydromorphone HCl (Hydromorphone Hcl 1 Mg/Ml Syringe) 0.5 mg IVPUSH Q4H PRN; Protocol PRN Reason: Pain, Severe (Pain Scale 7-10) Lisinopril (Lisinopril 40 Mg Tablet) 40 mg PO DAILY [facility]; Protocol Last Admin: 09/15/21 07:33 Dose: 40 mg Documented by: SUPRIYA Omeprazole (Omeprazole 20 Mg Capsule.Dr) 20 mg PO DAILY@0630 [facility] Last Admin: 09/15/21 06:34 Dose: 20 mg Documented by: DAVIDA Ondansetron HCl (Ondansetron Hcl 4 Mg/2 Ml Vial) 4 mg IVPUSH Q8H PRN PRN Reason: Nausea and Vomiting Oxycodone HCl (Oxycodone Hcl Immed Release 5 Mg Tablet) 10 mg PO Q4H PRN PRN Reason: Pain, Moderate (Pain Scale 4-6 Last Admin: 09/15/21 11:22 Dose: 10 mg Documented by: SUPRIYA Oxycodone HCl (Oxycodone Hcl Er 10 Mg Tab.Er.12h) 10 mg PO BID [facility] Last Admin: 09/15/21 09:05 Dose: 10 mg Documented by: SUPRIYA Sodium Chloride (0.9 % Sodium Chloride Flush 3 Ml Syringe) 3 ml IVFLUSH QSHIFT [facility] Last Admin: 09/15/21 07:34 Dose: Not Given Documented by: SUPRIYA Non-Admin Reason: IV Running Labs CBC & Chem 7: 09/15/21 05:45 09/15/21 05:45 Labs: Laboratory Results - last 24 hr 09/15/21 09/15/21 05:45 05:45 MCV 86.4 MCH 27.9 MCHC 32.3 RDW 13.0 Plt Count 312 MPV 9.8 Immature Gran % (Auto) 0.5 H Neut % (Auto) 78.4 H Lymph % (Auto) 10.5 L [place] % (Auto) 10.4 Eos % (Auto) 0.1 Baso % (Auto) 0.1 Lymph # (Auto) 1.5 [place] # (Auto) 1.4 H Eos # (Auto) 0.0 Baso # (Auto) 0.0 Abs Immat Gran (auto) 0.07 H Absolute Neuts (auto) 10.8 H Absolute Nucleated RBC 0.000 Nucleated RBC % (auto) 0.0 Anion Gap 11 L Estim Creat Clear Calc 123.0 Estimated GFR > 60 Fasting Glucose 106 H Calcium 9.1 Assessment and Plan (1) Status post total right knee replacement: Status: Acute (2) Neuropathy: Status: Acute (3) H/O ETOH abuse: Status: Acute (4) Hypertension: Status: Acute (5) Hyperlipidemia: Status: Acute Plan 66-year-old gentleman with past medical history of hypertension, hyperlipidemia, 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 Right total knee arthroplasty postoperative day 1 Complaining of right knee pain but better since yesterday, on OxyContin 10 mg b.i.d., Celebrex, oxycodone as needed, and low-dose IV Dilaudid 0.25 mg q.4 hours as needed will increase to 0.5 mg q.4 hours Encourage use of incentive spirometry, continue stool softeners, hematocrit dropped but stable, follow CBC DC IV fluids tolerating diet. 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 as per Ortho Quality Stroke Does the patient have a stroke diagnosis?: No VTE Prior VTE?: No VTE Risk Level:: Surgical - very high VTE Device Contraindication: N/A - Device Ordered VTE Drug Contraindication: N/A - Med Ordered
--- NOTE | 2021-09-15 12:59 | P.F2F_ITS ---
Service Date Service Date: 09/15/21 Encounter Date of encounter: 09/15/21 Reasons for Services Signs and symptoms assessed: right knee pain, swelling, unsteady balance. Reason for physical therapy: home safety and mobility, therapeutic exercises, restore joint function, gait/transfer training, ADL training and energy conservation Reason for occupational therapy: home safety and mobility, therapeutic exercises, restore joint function, gait/transfer training, ADL training and energy conservation MD Overseeing Care: Edy Walton Homebound: Leaving the home is medically contraindicated at this time without the asist of a device and/or another person due th the listed conditions above and below. Reason homebound: unsteady gait / fall risk, pain with ambulation, poor balance / fall risk and unable to drive Homebound supporting statement: Pt. is considered home bound due to recent surgery. Unable to drive, poor balance, poor gait mechanics. Certification: Based on the above findings, I certify that this patient is confined to the home and needs intermittent residential care, physical therapy and/or speech therapy, or continues to need occupational therapy. The patient is under my care, and I have initiated the establishment of the plan of care. The patient will be followed by a physician who will periodically review the plan of care.
--- NOTE | 2021-09-15 13:17 | W.MHC.F2F ---
Service Date Service Date: 09/15/21 Encounter Date of encounter: 09/15/21 Reasons for Services Signs and symptoms assessed: Right knee pain, swelling, unsteady gait Reason for physical therapy: home safety and mobility, therapeutic exercises, restore joint function, gait/transfer training, ADL training and energy conservation Reason for occupational therapy: home safety and mobility, therapeutic exercises, restore joint function, gait/transfer training, ADL training and energy conservation Homebound: Leaving the home is medically contraindicated at this time without the asist of a device and/or another person due th the listed conditions above and below. Reason homebound: unsteady gait / fall risk, poor balance / fall risk and unable to drive Certification: Based on the above findings, I certify that this patient is confined to the home and needs intermittent physical therapy and/or continues to need occupational therapy. The patient is under my care, and I have initiated the establishment of the plan of care. The patient will be followed by a physician who will periodically review the plan of care.
--- NOTE | 2021-09-15 13:54 | HO.POSTANES ---
Post Anesthesia Evaluation Post Anesthesia Evaluation Vital Signs: Vital Signs Temp Pulse Resp BP Pulse Ox 09/15/21 12:00 99.3 F 66 20 111/69 97 09/15/21 10:30 76 164/84 H 97 09/15/21 08:40 76 164/84 H 97 09/15/21 07:20 99.7 F 76 16 164/84 H 97 09/15/21 03:38 98.5 F 73 17 142/86 H 94 Anesthesia: Spinal and Nerve Block Mental Status: Awake Pain Control: Satisfactory Nausea/Vomiting: None Hydration: Adequate Anesthesia-Related Issues: No Anes. Related Issues
== END 2021-09-15 14:04 | disposition home health service (06) | DRG 470 ==
LOC: HO.SSS 08:55 → HO.SSSA 10:52 → HO.S3 15:15
PROVIDERS: Physician Assistant; Admitting Provider Orthopaedic Surgery; PCP Internal Medicine; Visit Provider Orthopaedic Surgery
PROC: 0SRC0JA Replacement of Right Knee Joint with Synthetic Substitute, Uncemented, Open Approach (ICD-10-PCS; CPT 27447; principal; 2021-09-14 09:40)
DX: M17.11 Unilateral primary osteoarthritis, right knee (principal); E78.5 Hyperlipidemia, unspecified; I10 Essential (primary) hypertension; G62.1 Alcoholic polyneuropathy; F10.11 Alcohol abuse, in remission; Z20.822 Contact with and (suspected) exposure to COVID-19; Z87.891 Personal history of nicotine dependence; Z79.899 Other long term (current) drug therapy
CPT/HCPCS: 27447; 36415; 73560; 80048; 85025; 86850; 86900; 86901; 87635; 87640; 87641; 88305; 88311; 97110; 97116; 97162; C1776; J0690; J1100; J1170; J1885; J2250

== ENCOUNTER → 2021-09-30 12:14 | Outpatient (BNVA) | payer MEDICARE, SELFPAY | PROVIDERS: PCP Internal Medicine; Visit Provider Physician Assistant | DX: Z96.651 Presence of right artificial knee joint (principal) | CPT/HCPCS: 99212 ==

== ENCOUNTER → 2021-10-28 10:20 | Outpatient (BNVA) | payer MEDICARE, SELFPAY | PROVIDERS: Visit Provider Physician Assistant | DX: Z47.1 Aftercare following joint replacement surgery (principal); M25.561 Pain in right knee | CPT/HCPCS: 99212 ==

== ENCOUNTER 2021-11-16 08:00 | Outpatient (RCR) | payer MEDICARE, SELFPAY ==
--- NOTE | 2021-10-05 09:58 | MHC.PT.EP ---
[facility] [place] Office [place] Office [place] Office [address] [place] [address] [phone] F: [phone] F: [phone] F: [phone] F: [phone] Physical Therapy Plan of Care Date of Evaluation: Date of Surgery: 09/14/21 Diagnosis: R TKA Assessment: Patient is a 66 year old R handed male who presents with s/s consistent with R TKA. He does not work but does enjoy staying active, especially with walking and gardening. He has PT at home and now presents to outpatient PT to progress his function. Patient past medical history includes peripheral neuropathy and venous insufficiency. Current impairments include pain, flexibility, ROM, strength, activity tolerance and functional mobility. Functional limitations include decreased ability to walk, transfer, negotiate stairs, garden and participate in hobbies. Patient is motivated with good rehab potential. Skilled PT will address impairments and functional limitations in order to achieve goals. Frequency and Duration: The patient will be seen 2x/week for 5 weeks Short Term Goals: I with HEP - 2 weeks AAROM flexion to 120 - 2 weeks Extension 0 - 2 weeks SLR with no lag - 3 weeks Snf Goals: Symmetrical gait, no AD with amb and stairs - 5 weeks LEFS 56/80 - 5 weeks Strength grossly 4/5 or better - 5 weeks Treatment Plan: Modalities to reduce pain, spasms and effusion. Manual therapy to restore motion and function. Therapeutic exercise to improve strength and flexibility. Neuromuscular re-education for posture and balance. Therapeutic activities to return to functional activities of daily living. Electronically signed by: Zcaarias Mijares, PT Please sign and return to therapist. Thank you for your referral.
--- NOTE | 2022-03-24 10:02 | MHC.PT.DC ---
[facility] [place] Office [place] Office [place] Office [address] [place] [address] [phone] F: [phone] F: [phone] F: [phone] F: [phone] Physical Therapy Discharge Report Diagnosis: R TKA Date of Surgery: 09/14/21 Date of Evaluation: 10/05/21 Date of Discharge: 12/04/21 Treatments to Date: 14 Cancellations to Date: No Shows to Date: Discharge Status: Improved Function Independent with HEP Discharge Summary: 11/16/21: pt contineus to progress well with function, strength. he has been able to be active in his garden x2 weeks. i educated him on proper activity level and monitoring swelling daily. he is on pace to d/c to HEP [place]. 11/10/21: pt with less swelling overall. attempting to resolve lateral discomfort by address ITB tightness. encouraged to work hip strength daily at home. 11/08/21: resumed shuttle and wobble board. no adverse reactions. we will continue to progress as tolerated, addressing last knee pain. 11/03/21: pt progressed with activity today. reduced swelling noted. reduced discomfort with stair activities. 11/01/21: less swelling today, but still present. we continued with similar program to last visit to continues to address this. 10/29/21: gentle motion and swelling management today as knee was more swollen and pt noted increased soreness after last visit 10/26/21: minor compensatory strategies present with 8 step up. pt educated on this. 10/22/21: pt with minor lateral pain with stair descent. otherwise, no new s/s. some swelling still present at end of PT so we educated on use of CP as needed. 10/19/21: pt progressing very well overall. good ROM, strength, balance. pain is reducing. still needs improvement with eccentric control. 10/15/21: pt continues to improved descent on stairs. educated on how to work on stairs at home. we will continue to progress as tolerated. 10/12/21: pt progressing well with skilled PT for improved ROM, strength, balance and function. AAROM is maintaining. strength is improving. pt challenged with balance, requiring handheld assist within 10 seconds consistently. 10/07/21: pt progressed with stairs. no adverse reactions. difficulty with controlling descent. Patient is a 66 year old R handed male who presents with s/s consistent with R TKA. He does not work but does enjoy staying active, especially with walking and gardening. He has PT at home and now presents to outpatient PT to progress his function. Patient past medical history includes peripheral neuropathy and venous insufficiency. Current impairments include pain, flexibility, ROM, strength, activity tolerance and functional mobility. Functional limitations include decreased ability to walk, transfer, negotiate stairs, garden and participate in hobbies. Patient is motivated with good rehab potential. Skilled PT will address impairments and functional limitations in order to achieve goals. Electronically signed by: Zacarias Mijares, PT Please sign and return to therapist. Thank you for your referral.
== END 2022-03-24 10:02 | disposition home or self-care (01) ==
LOC: HO.PTCHIC 08:00
PROVIDERS: PCP Internal Medicine; Visit Provider Physician Assistant
DX: Z96.651 Presence of right artificial knee joint (principal)
CPT/HCPCS: 97110; 97112; 97140; 97162; 97530

== ENCOUNTER 2021-12-09 08:30 | Outpatient (REF) | payer MEDICARE, SELFPAY ==
--- NOTE | ~2021-12-09 | XR_ITS ---
EXAMINATION: KNEE X-RAY CLINICAL INFORMATION: Pain COMPARISON: Previous x-ray August 2021 TECHNIQUE: Standing AP view of both knees and lateral and sunrise view of the right knee FINDINGS: Right: There is a 3 component right knee replacement in satisfactory position. No fracture or dislocation is seen. There is a joint effusion. There is soft tissue swelling anterior to the knee. 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 XR/XR knee standing BI IMPRESSION: Right: Satisfactory appearance of right knee replacement. Joint effusion and soft tissue swelling.
--- NOTE | ~2021-12-09 | XR_ITS ---
EXAMINATION: KNEE X-RAY CLINICAL INFORMATION: Pain COMPARISON: Previous x-ray August 2021 TECHNIQUE: Standing AP view of both knees and lateral and sunrise view of the right knee FINDINGS: Right: There is a 3 component right knee replacement in satisfactory position. No fracture or dislocation is seen. There is a joint effusion. There is soft tissue swelling anterior to the knee. 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 XR/XR knee RT 2V IMPRESSION: Right: Satisfactory appearance of right knee replacement. Joint effusion and soft tissue swelling.
== END 2021-12-09 08:31 | disposition home or self-care (01) ==
LOC: HO.HOSX 08:30
PROVIDERS: Visit Provider Orthopaedic Surgery
DX: M25.561 Pain in right knee (principal); R60.0 Localized edema
CPT/HCPCS: 73560; 73565

== ENCOUNTER → 2022-01-14 09:20 | Outpatient (BNVA) | payer MEDICARE, SELFPAY | PROVIDERS: PCP Internal Medicine; Visit Provider Orthopaedic Surgery | DX: M66.251 Spontaneous rupture of extensor tendons, right thigh (principal); Z96.651 Presence of right artificial knee joint | CPT/HCPCS: 99212 ==

== ENCOUNTER 2022-03-24 07:47 | Outpatient (REF) | payer MEDICARE, SELFPAY ==
[2022-03-24 11:15] LABS: MANUAL DIFF FLAG NO
[2022-03-24 11:27] LABS: Basophils Absolute Auto 0.1 X10*3/uL (0.0-0.2); Basophils Percent Auto 1.5 % (0-2); Eosinophils Absolute Auto 0.5 X10*3/uL (0.0-0.4); Eosinophils Percent Auto 7.4 % (0-4); Hematocrit 38.7 % (42.0-52.0); Hemoglobin 12.7 g/dl (14.0-18.0); Imm Gran Abs Auto 0.02 X10*3/uL (0.00-0.03); Imm Gran Pct Auto 0.3 % (0.0-0.4); Lymphocytes Absolute Auto 2.1 X10*3/uL (1.2-4.9); Lymphocytes Percent Auto 32.5 % (20-40); Mean Corpuscular HGB Conc 32.8 g/dl (31.0-36.0); Mean Corpuscular Hemoglobin 27.9 pg (27.0-33.0); Mean Corpuscular Volume 85.1 fL (80.0-98.0); Mean Platelet Volume 9.7 fL (9.4-12.4); Monocytes Absolute Auto 0.6 X10*3/uL (0.1-1.2); Monocytes Percent Auto 9.2 % (2-11); Neutrophils Absolute Auto 3.2 x10*3/uL (2.0-8.3); Neutrophils Percent Auto 49.1 % (45-73); Platelet Count 362 X10*3/uL (160-400); Red Blood Count 4.55 X10*6/uL (4.60-5.80); Red Cell Distribution Width 13.1 % (11.0-16.0); White Blood Count 6.5 X10*3/uL (4.8-10.8)
[2022-03-24 11:30] LABS: Estimated Average Glucose 103 mg/dL; Hemoglobin A1C 114.6166 umol/L; Hemoglobin A1c % 5.2 %
[2022-03-24 11:54] LABS: Alanine Aminotransferase 20 U/L (0-40); Albumin Level 4.2 g/dL (3.5-5.0); Alkaline Phosphatase 100 U/L (39-117); Anion Gap 15 (12-20); Aspartate Amino Transferase 25 U/L (5-37); Bilirubin Total 0.5 mg/dL (0.0-1.0); Blood Urea Nitrogen 5 mg/dL (9-16); Calcium 9.3 mg/dL (8.4-10.2); Carbon Dioxide 27 mmol/L (22-29); Chloride 100 mmol/L (96-108); Cholesterol 137 mg/dL; Estimated Glomerular Filt Rate > 60; Glucose Fasting 110 mg/dL (60-99); HDL Cholesterol 42 mg/dL; Iron 54 mcg/dL (45-160); LDL Cholesterol Calculated 76 mg/dl; Percent Iron Saturation 23 % (15-50); Potassium 4.9 mmol/L (3.3-5.1); Sodium 137 mmol/L (135-145); Total Iron Binding Capacity 230 mcg/dL (228-428); Total Protein 6.7 g/dL (6.5-8.0); Triglycerides 97 mg/dL; Unsaturated Iron Binding 176 ug/dL
[2022-03-24 12:17] LABS: PSA,Total (Free>4and<10) 0.37 ng/mL (0.00-4.00)
[2022-03-24 12:42] LABS: Folate > 20.0 ng/mL (> or = 4.0); Vitamin B12 440 pg/mL (200-900)
== END 2022-03-24 07:48 | disposition home or self-care (01) ==
LOC: HO.HMGCLDS 07:47
PROVIDERS: PCP Internal Medicine; Visit Provider Internal Medicine
DX: Z12.5 Encounter for screening for malignant neoplasm of prostate (principal); E78.5 Hyperlipidemia, unspecified; G62.9 Polyneuropathy, unspecified; I10 Essential (primary) hypertension; D64.9 Anemia, unspecified
CPT/HCPCS: 36415; 80053; 80061; 82607; 82746; 83036; 83540; 84153; 85025

== ENCOUNTER → 2022-04-15 09:20 | Outpatient (BNVA) | payer MEDICARE, SELFPAY | PROVIDERS: PCP Internal Medicine; Visit Provider Orthopaedic Surgery | DX: M66.251 Spontaneous rupture of extensor tendons, right thigh (principal); M17.12 Unilateral primary osteoarthritis, left knee; Z96.651 Presence of right artificial knee joint | CPT/HCPCS: 99212 ==

== ENCOUNTER 2022-09-20 06:31 | Outpatient (REF) | payer MEDICARE, SELFPAY ==
[2022-09-20 11:31] LABS: MANUAL DIFF FLAG NO
[2022-09-20 11:58] LABS: Basophils Absolute Auto 0.1 X10*3/uL (0.0-0.2); Basophils Percent Auto 1.2 % (0-2); Eosinophils Absolute Auto 0.5 X10*3/uL (0.0-0.4); Eosinophils Percent Auto 5.5 % (0-4); Imm Gran Abs Auto 0.05 X10*3/uL (0.00-0.03); Imm Gran Pct Auto 0.6 % (0.0-0.4); Lymphocytes Absolute Auto 2.1 X10*3/uL (1.2-4.9); Lymphocytes Percent Auto 25.9 % (20-40); Mean Corpuscular HGB Conc 32.5 g/dl (31.0-36.0); Mean Corpuscular Hemoglobin 27.8 pg (27.0-33.0); Mean Corpuscular Volume 85.7 fL (80.0-98.0); Mean Platelet Volume 9.4 fL (9.4-12.4); Monocytes Absolute Auto 0.7 X10*3/uL (0.1-1.2); Monocytes Percent Auto 8.6 % (2-11); Neutrophils Absolute Auto 4.8 x10*3/uL (2.0-8.3); Neutrophils Percent Auto 58.2 % (45-73); Platelet Count 345 X10*3/uL (160-400); Red Blood Count 4.67 X10*6/uL (4.60-5.80); Red Cell Distribution Width 13.2 % (11.0-16.0); White Blood Count 8.2 X10*3/uL (4.8-10.8)
[2022-09-20 12:03] LABS: Estimated Average Glucose 105 mg/dL; Hemoglobin A1c % 5.3 %
[2022-09-20 12:17] LABS: Alanine Aminotransferase 18 U/L (0-40); Alkaline Phosphatase 89 U/L (39-117); Anion Gap 11 (12-20); Aspartate Amino Transferase 21 U/L (5-37); Bilirubin Total 1.2 mg/dL (0.0-1.0); Blood Urea Nitrogen 9 mg/dL (9-16); Calcium 8.8 mg/dL (8.4-10.2); Carbon Dioxide 28 mmol/L (22-29); Chloride 101 mmol/L (96-108); Estimated Glomerular Filt Rate > 60; Glucose Fasting 108 mg/dL (60-99); Sodium 136 mmol/L (135-145); Total Protein 6.3 g/dL (6.5-8.0)
[2022-09-20 12:48] LABS: Folate 18.1 ng/mL (> or = 4.0); Vitamin B12 485 pg/mL (200-900)
== END 2022-09-20 06:32 | disposition home or self-care (01) ==
LOC: HO.HMGCLDS 06:31
PROVIDERS: PCP Internal Medicine; Visit Provider Internal Medicine
DX: D64.9 Anemia, unspecified (principal); I10 Essential (primary) hypertension; E78.5 Hyperlipidemia, unspecified; R73.9 Hyperglycemia, unspecified
CPT/HCPCS: 36415; 80053; 82607; 82746; 83036; 85025

== ENCOUNTER 2023-04-19 06:31 | Outpatient (REF) | payer OTHER, SELFPAY ==
[2023-04-19 11:15] LABS: Appearance Urine Clear; Color Urine Yellow; Glucose Urine UA Negative (Negative); Leukocyte Esterase Urine Negative (Negative); MANUAL DIFF FLAG NO; Nitrite Urine Negative (Negative); Urine Blood Negative (Negative); Urine Ketones Negative (Negative); Urine Protein Negative (Neg-Trace)
[2023-04-19 11:20] LABS: Bacteria Urine None Seen (None Seen); Hyaline Casts Urine 0-2 /LPF (0-2); RBC Urine 0-2 /HPF (0-2); Squamous Epithelial Cell Urine 0-2 /HPF (0-2); WBC Urine 0-5 /HPF (0-5)
[2023-04-19 11:26] LABS: Basophils Absolute Auto 0.1 X10*3/uL (0.0-0.2); Basophils Percent Auto 1.1 % (0-2); Eosinophils Absolute Auto 0.4 X10*3/uL (0.0-0.4); Eosinophils Percent Auto 6.2 % (0-4); Hematocrit 40.2 % (42.0-52.0); Hemoglobin 12.8 g/dl (14.0-18.0); Imm Gran Abs Auto 0.03 X10*3/uL (0.00-0.03); Imm Gran Pct Auto 0.5 % (0.0-0.4); Lymphocytes Percent Auto 29.6 % (20-40); Mean Corpuscular HGB Conc 31.8 g/dl (31.0-36.0); Mean Corpuscular Hemoglobin 27.1 pg (27.0-33.0); Mean Platelet Volume 9.7 fL (9.4-12.4); Monocytes Absolute Auto 0.5 X10*3/uL (0.1-1.2); Monocytes Percent Auto 7.8 % (2-11); Neutrophils Absolute Auto 3.6 x10*3/uL (2.0-8.3); Neutrophils Percent Auto 54.8 % (45-73); Platelet Count 334 X10*3/uL (160-400); Red Blood Count 4.73 X10*6/uL (4.60-5.80); White Blood Count 6.6 X10*3/uL (4.8-10.8)
[2023-04-19 11:31] LABS: Estimated Average Glucose 100 mg/dL; Hemoglobin A1c % 5.1 % (<6.0)
[2023-04-19 11:37] LABS: Alanine Aminotransferase 19 U/L (0-40); Albumin Level 4.2 g/dL (3.5-5.0); Alkaline Phosphatase 87 U/L (39-117); Anion Gap 13 (12-20); Aspartate Amino Transferase 28 U/L (5-37); Bilirubin Total 0.6 mg/dL (0.0-1.0); Blood Urea Nitrogen 9 mg/dL (9-16); Calcium 9.4 mg/dL (8.4-10.2); Carbon Dioxide 27 mmol/L (22-29); Chloride 104 mmol/L (96-108); Cholesterol 162 mg/dL (<200); Estimated Glomerular Filt Rate > 60; Glucose Fasting 110 mg/dL (60-99); HDL Cholesterol 47 mg/dL (>40); LDL Cholesterol Calculated 100 mg/dL (<100); Potassium 4.4 mmol/L (3.3-5.1); Sodium 140 mmol/L (135-145); Total Protein 6.3 g/dL (6.5-8.0); Triglycerides 78 mg/dL (<150)
[2023-04-19 11:51] LABS: PSA,Total (Free>4and<10) 0.28 ng/mL (0.00-4.00)
== END 2023-04-19 06:32 | disposition home or self-care (01) ==
LOC: HO.HMGCLDS 06:31
PROVIDERS: PCP Internal Medicine; Visit Provider Internal Medicine
DX: Z12.5 Encounter for screening for malignant neoplasm of prostate (principal); R73.9 Hyperglycemia, unspecified; I10 Essential (primary) hypertension; E78.5 Hyperlipidemia, unspecified
CPT/HCPCS: 36415; 80053; 80061; 81001; 83036; 84153; 85025

== ENCOUNTER 2023-04-28 12:49 | Outpatient (AMB) | payer OTHER, SELFPAY ==
[2023-04-28 12:59] VITALS: BP 120/74; PULSE 76; O2SAT 94; BMI 29.5
--- NOTE | 2023-04-28 12:59 | MHC.PC.OV ---
Vital Signs 04/28/23 12:59 Height 6 ft 3 in Weight 236 lb BMI 29.5 BP 120/74 Blood Pressure Location Lt brachial Position Sitting Pulse 76 Pulse Source Pulse Oximeter Pulse Oximetry (%) 94 Oxygen Delivery Method Room Air Intake Visit Reasons: Physical Exam Intake Note: Pt is here today for PE. Allergies venlafaxine [From EFFEXOR] Adverse Reaction (Intermediate, Verified 04/28/23 13:03) itching/rash Medication List - Last Reconciled 04/28/23 by Radha Aguayo MD acetaminophen 650 mg (2 x 325 mg) PO Q6H PRN 30 days amlodipine 10 mg PO DAILY atenolol 50 mg PO DAILY atorvastatin 20 mg PO BEDTIME celecoxib 200 mg PO BID elderberry fruit and flower 460-115 mg 1 cap PO DAILY gabapentin 800 mg PO TID lisinopril 40 mg PO DAILY omeprazole 20 mg PO DAILY tramadol 50 mg PO BID vitamin B complex 1 tab PO DAILY walker Folding front wheeled walker Tobacco use date assessed: 04/28/23 Dental Screening Dental Screen Date: 04/28/23 Did you have a dental visit in the last 12 months?: Yes Did you have a dental problem in the last 6 months where you did not have access to dental care?: No Was dental information given to patient?: Patient has dentist HPI Physical Exam HPI Details Pt presents for PE. Complains of chronic left knee pain and stiffness. Patient follows up with orthopedic surgeon and is contemplating knee replacement surgery [facility] Medical History Osteoarthritis of right knee Family history of malignant hyperthermia Esophageal stricture COVID-19 vaccine series completed Venous insufficiency of both lower extremities H/O ETOH abuse Hyperlipidemia Hypertension Neuropathy Arthritis Peripheral neuropathy Surgical History History of esophagogastroduodenoscopy (EGD) Hx of colonoscopy Social History Household Members: Family Household Members Other:: , 2 sons Housing: House Are you a primary workforce investment act career manager to a significant other at home: No Do you presently have visiting nurse or other home services: No Patient Tobacco Use Status: Former Tobacco user Quit Date: 1996 Tobacco use type: Cigarette Years Smoked: 27 e-Cigarette/Vaping Use: Never Used service: No Current occupational status: retired Current occupation: rt handed Cognitive needs: No Hearing needs: No Vision needs: No Questionnaire Thrive Questionnaire Date Thrive assessed: 08/13/21 DAVID-7 AMB Questionnaire DAVID-7 Date DAVID - 7 assessed: 08/13/21 Source: Developed by Drs. Buzz Peoples, Amisha Bennett, Osmar Patel and colleagues, with an educational krystle from [employer]. Review of Systems Const All systems reviewed & are unremarkable except as noted in HPI and below Reports no additional complaints Eyes Reports no additional complaints ENT Reports no additional complaints Card Reports no additional complaints Resp Reports no additional complaints GI Reports no additional complaints Reports no additional complaints Physical exam (Primary Care) Vital Signs: Last Vital Signs Pulse 76 04/28/23 12:59 BP 120/74 04/28/23 12:59 Pulse Ox 94 04/28/23 12:59 Oxygen Delivery Method Room Air 04/28/23 12:59 BMI result Body Mass Index 29.5 Tobacco/Smoking Status: Tobacco use Status Tobacco use date assessed 04/28/23 04/28/23 13:04 Patient Tobacco Use Status Former Tobacco user 04/28/23 12:59 Tobacco use type Cigarette 04/28/23 12:59 e-Cigarette/Vaping Use Never Used 04/28/23 12:59 Thrive Assessment: Date of Thrive Assessment Date Thrive assessed 08/13/21 04/28/23 12:59 Const General: no acute distress HENMT Head: Yes normal to inspection Ears: hearing grossly normal bilaterally General nose exam: Normal external nose present Face and sinus: Yes normal facial exam Mouth: Normal oral and palatal mucosa present Eyes General: appearance normal, both eyes and all related structures Neck Neck: Yes no lymphadenopathy and Yes supple Resp Effort & Inspection: normal respiratory effort Auscultation: clear to auscultation bilaterally Cardio Rhythm: regular rhythm Heart sounds: S1 normal heart sound present and S2 normal heart sound present GI Inspection: Yes normal to inspection Palpation (GI): Soft to palpation Percussion: Yes normal to percussion Auscultation: normal bowel sounds Assessment and Plan Assessment & Plan (1) Hyperglycemia: Code(s): R73.9 - Hyperglycemia, unspecified Plan: A1C IS 5.1, CONTINUE ADA DIET REGULAR EXERCISE (2) Hypertension: Code(s): I10 - Essential (primary) hypertension Plan: Continue current medications (3) Hyperlipidemia: Code(s): E78.5 - Hyperlipidemia, unspecified Plan: Continue statin (4) Annual physical exam: Code(s): Z00.00 - Encounter for general adult medical examination without abnormal findings Plan: Well-balanced diet regular exercise weight loss discussed with the patient. He follows up with orthopedic surgeon for advanced osteoarthritis of left knee. Orders: Orders Comprehensive Gatzke. Panel Fast 365 Days D64.9 - Anemia, unspecified, E78.5 - Hyperlipidemia, unspecified, I10 - Essential (primary) hypertension, R73.9 - Hyperglycemia, unspecified Complete Blood Count Auto Diff 365 Days D64.9 - Anemia, unspecified, E78.5 - Hyperlipidemia, unspecified, I10 - Essential (primary) hypertension, R73.9 - Hyperglycemia, unspecified Lipid Panel 365 Days D64.9 - Anemia, unspecified, E78.5 - Hyperlipidemia, unspecified, I10 - Essential (primary) hypertension, R73.9 - Hyperglycemia, unspecified TSH reflex Free T4 365 Days D64.9 - Anemia, unspecified, E78.5 - Hyperlipidemia, unspecified, I10 - Essential (primary) hypertension, R73.9 - Hyperglycemia, unspecified PSA,Total (Free>4and<10) 365 Days D64.9 - Anemia, unspecified, E78.5 - Hyperlipidemia, unspecified, I10 - Essential (primary) hypertension, R73.9 - Hyperglycemia, unspecified Hemoglobin A1c 365 Days R73.9 - Hyperglycemia, unspecified Coding Level of Care Code Est Pt Prev Care >65y(55437) Diagnoses Hyperglycemia R73.9 Hypertension I10 Hyperlipidemia E78.5 Annual physical exam Z00.00
== END 2023-04-28 13:45 | disposition home or self-care (01) ==
PROVIDERS: Visit Provider Internal Medicine
DX: R73.9 Hyperglycemia, unspecified (principal); I10 Essential (primary) hypertension; E78.5 Hyperlipidemia, unspecified; Z00.00 Encounter for general adult medical examination without abnormal findings
CPT/HCPCS: 99397

== ENCOUNTER 2023-06-01 12:48 | Outpatient (REF) | payer OTHER, SELFPAY ==
--- NOTE | ~2023-06-01 | XR_ITS ---
EXAMINATION: X-RAY BILATERAL KNEES LATERAL AND SUNRISE VIEWS X-RAY BILATERAL KNEES AP STANDING VIEW CLINICAL INFORMATION: Pain. COMPARISON: Radiograph right knee 12/09/2021. X-ray AP standing views of both knees 12/09/2021. X-ray left knee 06/11/2021. TECHNIQUE: Lateral and sunrise views of each knee were obtained. AP bilateral standing view of the knees was obtained. FINDINGS: Prosthetic components of the right total knee arthroplasty are appropriately aligned without periprosthetic fracture or abnormal lucency. No component migration. No acute fractures or subluxation. Severe joint space narrowing of the medial compartment of the left knee with associated subcortical sclerosis and marginal osteophytes. Small bilateral joint effusions not significantly changed. Scattered vascular calcifications. XR/XR knee standing BI IMPRESSION: 1. Appropriate alignment of the right total knee arthroplasty without evidence of complications. 2. No acute fractures or subluxation. 3. Severe degenerative osteoarthritis of the medial compartment of the left knee. 4. Small small chronic bilateral joint effusions.
--- NOTE | ~2023-06-01 | XR_ITS ---
EXAMINATION: X-RAY BILATERAL KNEES LATERAL AND SUNRISE VIEWS X-RAY BILATERAL KNEES AP STANDING VIEW CLINICAL INFORMATION: Pain. COMPARISON: Radiograph right knee 12/09/2021. X-ray AP standing views of both knees 12/09/2021. X-ray left knee 06/11/2021. TECHNIQUE: Lateral and sunrise views of each knee were obtained. AP bilateral standing view of the knees was obtained. FINDINGS: Prosthetic components of the right total knee arthroplasty are appropriately aligned without periprosthetic fracture or abnormal lucency. No component migration. No acute fractures or subluxation. Severe joint space narrowing of the medial compartment of the left knee with associated subcortical sclerosis and marginal osteophytes. Small bilateral joint effusions not significantly changed. Scattered vascular calcifications. XR/XR knee RT 2V IMPRESSION: 1. Appropriate alignment of the right total knee arthroplasty without evidence of complications. 2. No acute fractures or subluxation. 3. Severe degenerative osteoarthritis of the medial compartment of the left knee. 4. Small small chronic bilateral joint effusions.
--- NOTE | ~2023-06-01 | XR_ITS ---
EXAMINATION: X-RAY BILATERAL KNEES LATERAL AND SUNRISE VIEWS X-RAY BILATERAL KNEES AP STANDING VIEW CLINICAL INFORMATION: Pain. COMPARISON: Radiograph right knee 12/09/2021. X-ray AP standing views of both knees 12/09/2021. X-ray left knee 06/11/2021. TECHNIQUE: Lateral and sunrise views of each knee were obtained. AP bilateral standing view of the knees was obtained. FINDINGS: Prosthetic components of the right total knee arthroplasty are appropriately aligned without periprosthetic fracture or abnormal lucency. No component migration. No acute fractures or subluxation. Severe joint space narrowing of the medial compartment of the left knee with associated subcortical sclerosis and marginal osteophytes. Small bilateral joint effusions not significantly changed. Scattered vascular calcifications. XR/XR knee LT 2V IMPRESSION: 1. Appropriate alignment of the right total knee arthroplasty without evidence of complications. 2. No acute fractures or subluxation. 3. Severe degenerative osteoarthritis of the medial compartment of the left knee. 4. Small small chronic bilateral joint effusions.
== END 2023-06-01 12:49 | disposition home or self-care (01) ==
LOC: HO.HOSX 12:48
PROVIDERS: Visit Provider Orthopaedic Surgery
DX: M17.12 Unilateral primary osteoarthritis, left knee (principal); M25.561 Pain in right knee
CPT/HCPCS: 73560; 73565

== ENCOUNTER 2023-06-01 13:48 | Outpatient (AMB) | payer OTHER, SELFPAY ==
--- NOTE | 2023-06-01 14:37 | MHC.OFFVIS ---
Intake Intake Visit Reasons: discuss LT knee Intake Note: This is a 67 year old male who presents to discuss left knee surgery. Allergies venlafaxine [From EFFEXOR] Adverse Reaction (Intermediate, Verified 06/01/23 14:42) itching/rash Medication List - Last Reconciled 06/01/23 by Marilou Valera, RN acetaminophen 650 mg (2 x 325 mg) PO Q6H PRN 30 days amlodipine 10 mg PO DAILY atenolol 50 mg PO DAILY atorvastatin 20 mg PO BEDTIME celecoxib 200 mg PO BID elderberry fruit and flower 460-115 mg 1 cap PO DAILY gabapentin 800 mg PO TID lisinopril 40 mg PO DAILY omeprazole 20 mg PO DAILY tramadol 50 mg PO BID vitamin B complex 1 tab PO DAILY walker Folding front wheeled walker HPI discuss LT knee HPI Details Parveen is a 67 year old man with left knee OA pain. He is a [place] and can work but with constant pain. He has had injections in the past that are briefly helpful. He has pain with daily activity, worse with walking, kneeling, or using stairs. He would like to discuss surgery for his left knee. He has a hx of a right TKA on 09/14/21, which he recovered from well. He does hear occasional sounds coming from his knee at times however. [facility] Medical History Osteoarthritis of right knee Family history of malignant hyperthermia Esophageal stricture COVID-19 vaccine series completed Venous insufficiency of both lower extremities H/O ETOH abuse Hyperlipidemia Hypertension Neuropathy Arthritis Peripheral neuropathy Surgical History History of esophagogastroduodenoscopy (EGD) Hx of colonoscopy Social History Household Members: Family Household Members Other:: , 2 sons Housing: House Are you a primary healthcare administration internship to a significant other at home: No Do you presently have visiting nurse or other home services: No Patient Tobacco Use Status: Former Tobacco user Quit Date: 1996 Tobacco use type: Cigarette Years Smoked: 27 e-Cigarette/Vaping Use: Never Used service: No Current occupational status: retired Current occupation: rt handed Cognitive needs: No Hearing needs: No Vision needs: No Review of Systems Const All systems reviewed & are unremarkable except as noted in HPI and below Physical Exam Const General: no acute distress, alert and awake Orientation/consciousness: patient oriented x3 HEENT Head: Yes normocephalic and Yes atraumatic Eyes EOM: EOMs intact bilaterally Resp Effort & Inspection: normal respiratory effort and able to speak in complete sentences Cardio Jugular venous distension: no JVD Skin General skin exam: turgor normal Rashes: no rashes Neuro General: patient oriented x3 Extrem Other: Left Knee: TTP medial compartment Right knee with well healed inc stable to v/v stress 0-130 deg motion Psych Appearance: grossly normal Affect: normal affect Attitude: cooperative Results Reviewed Results Reviewed: I personally reviewed relevant radiographs Right total knee arthroplasty in expected post operative position with no hardware complications or evidence of loosening Left knee severe varus pattern OA Assessment & Plan Assessment & Plan (1) Osteoarthritis of left knee: Code(s): M17.12 - Unilateral primary osteoarthritis, left knee Plan: This is a 67 year old man with left knee OA. he has pain with daily activity, feels limited in his ADLs and his QOL is diminished. He tolerated a right TKA well in the past and would like to proceed with surgery. I discussed the risks, benefits, and alternatives including, but not limited to, the risk of pain, infection, stiffness, need for further surgery as well as potential medical complications such as blood clots, pulmonary embolism and cardiac complications. I discussed the recovery timeline and process as well as the importance of PT. Parveen is a good candidate for this surgery, and he wishes to proceed with this decision. He will speak with Sachi to schedule this procedure. Orders: Orders XR knee standing BI 06/01/23 M25.569 - Pain in unspecified knee XR knee RT 2V 06/01/23 M25.569 - Pain in unspecified knee XR knee LT 2V 06/01/23 M25.569 - Pain in unspecified knee Coding Level of Care Code Est Pt Level 4 (52584) Diagnoses Osteoarthritis of left knee M17.12
== END 2023-06-01 15:19 | disposition home or self-care (01) ==
PROVIDERS: PCP Internal Medicine; Visit Provider Orthopaedic Surgery
DX: M17.12 Unilateral primary osteoarthritis, left knee (principal); Z96.651 Presence of right artificial knee joint
CPT/HCPCS: 99214

== ENCOUNTER 2023-08-16 11:53 | Outpatient (AMB) | payer OTHER, SELFPAY ==
--- NOTE | 2023-08-16 11:58 | A.OFFPC_ITS ---
Vital Signs 08/16/23 12:00 Height 6 ft 3 in Weight 232 lb BMI 29.0 BP 122/74 Blood Pressure Location Lt brachial Position Sitting Pulse 67 Pulse Source Pulse Oximeter Pulse Oximetry (%) 97 Oxygen Delivery Method Room Air Intake Visit Reasons: Pre op Lt Total Knee Arthroplasty with Dr. Walton Intake Note: Pt is here today for pre op visit. Pt is having L total knee arthroplasty with Dr. Walton on 09/05/23. Allergies venlafaxine [From EFFEXOR] Adverse Reaction (Intermediate, Verified 08/16/23 12:03) itching/rash Medication List - Last Reconciled 08/16/23 by Radha Aguayo MD acetaminophen 650 mg (2 x 325 mg) PO Q6H PRN 30 days amlodipine 10 mg PO DAILY atenolol 50 mg PO DAILY atorvastatin 20 mg PO BEDTIME celecoxib 200 mg PO BID elderberry fruit and flower 460-115 mg 1 cap PO DAILY gabapentin 800 mg PO TID lisinopril 40 mg PO DAILY omeprazole 20 mg PO DAILY tramadol 50 mg PO BID vitamin B complex 1 tab PO DAILY walker Folding front wheeled walker Tobacco use date assessed: 08/16/23 Fall risk assessment: No Falls in past year Last assessed Fall Risk: 08/16/23 Dental Screening Dental Screen Date: 08/16/23 Did you have a dental visit in the last 12 months?: Yes Did you have a dental problem in the last 6 months where you did not have access to dental care?: No Was dental information given to patient?: Patient has dentist HPI Pre op Lt Total Knee Arthroplasty with Dr. Walton HPI Details Patient presents for the preop for left total knee arthroplasty. Hypertension hyperlipidemia controlled on current medications. Patient denies chest pain shortness for breath palpitations. His physical activity has been limited because of left knee. chronic pain PFSH Medical History Osteoarthritis of right knee Family history of malignant hyperthermia Esophageal stricture COVID-19 vaccine series completed Venous insufficiency of both lower extremities H/O ETOH abuse Hyperlipidemia Hypertension Neuropathy Arthritis Peripheral neuropathy Surgical History History of esophagogastroduodenoscopy (EGD) Hx of colonoscopy Social History Household Members: Family Household Members Other:: , 2 sons Housing: House Are you a primary insurance healthcare consultant to a significant other at home: No Do you presently have visiting nurse or other home services: No Patient Tobacco Use Status: Former Tobacco user Quit Date: 1996 Tobacco use type: Cigarette Years Smoked: 27 e-Cigarette/Vaping Use: Never Used service: No Current occupational status: retired Current occupation: rt handed Cognitive needs: No Hearing needs: No Vision needs: No Questionnaire Thrive Questionnaire Date Thrive assessed: 08/13/21 AUDIT C Alcohol Use Questionnaire (AUDIT-C) 1. How often do you have a drink containing alcohol?: Never 3. How often do you have six or more drinks on one occasion?: Never Total Score: 0 DAVID-7 AMB Questionnaire DAVID-7 Date DAVID - 7 assessed: 08/13/21 Feeling nervous, anxious, or on edge: 1 = Several days Not being able to stop or control worryin = Several days Worrying too much about different things: 1 = Several days Trouble relaxin = Several days Being so restless that it is hard to sit still: 0 = Not at all Becoming easily annoyed or irritable: 0 = Not at all Feeling afraid as if something awful might happen: 0 = Not at all Total DAVID-7 score (0-4 normal; 5-9 mild; 10-14 moderate; 15-21 severe): 4 Source: Developed by Drs. Buzz Peoples, Amisha Bennett, Osmar Patel and colleagues, with an educational krystle from [employer]. Review of Systems Const All systems reviewed & are unremarkable except as noted in HPI and below Reports no additional complaints Eyes Reports no additional complaints ENT Reports no additional complaints Card Reports no additional complaints Resp Reports no additional complaints GI Reports no additional complaints Reports no additional complaints Physical exam (Primary Care) Vital Signs: Last Vital Signs Pulse 67 08/16/23 12:00 BP 122/74 08/16/23 12:00 Pulse Ox 97 08/16/23 12:00 Oxygen Delivery Method Room Air 08/16/23 12:00 BMI result Body Mass Index 29.0 Tobacco/Smoking Status: Tobacco use Status Tobacco use date assessed 08/16/23 08/16/23 12:08 Patient Tobacco Use Status Former Tobacco user 08/16/23 11:58 Tobacco use type Cigarette 08/16/23 11:58 e-Cigarette/Vaping Use Never Used 08/16/23 11:58 Thrive Assessment: Date of Thrive Assessment Date Thrive assessed 08/13/21 08/16/23 11:58 Const General: no acute distress HENMT Head: Yes normal to inspection Eyes General: appearance normal, both eyes and all related structures Neck Neck: Yes no lymphadenopathy and Yes supple Resp Effort & Inspection: normal respiratory effort Auscultation: clear to auscultation bilaterally Cardio Rhythm: regular rhythm Heart sounds: S1 normal heart sound present and S2 normal heart sound present GI Inspection: Yes normal to inspection Palpation (GI): Soft to palpation Assessment and Plan Assessment & Plan (1) Hypertension: Code(s): I10 - Essential (primary) hypertension Plan: Continue current medications. EKG showed normal sinus rhythm no ST-T changes (2) Osteoarthritis of left knee: Code(s): M17.12 - Unilateral primary osteoarthritis, left knee Plan: Patient is medically clear for left knee arthroplasty (3) Hyperglycemia: Code(s): R73.9 - Hyperglycemia, unspecified Plan: Continue ADA diet A1c was 5.1 (4) Hyperlipidemia: Code(s): E78.5 - Hyperlipidemia, unspecified Plan: Continue statin Orders: Orders Complete Blood Count Auto Diff Today I10 - Essential (primary) hypertension Basic Metabolic Panel Today I10 - Essential (primary) hypertension Coding Level of Care Code Est Pt Level 4 (13497) Diagnoses Hypertension I10 Osteoarthritis of left knee M17.12 Hyperglycemia R73.9 Hyperlipidemia E78.5
[2023-08-16 12:00] VITALS: BP 122/74; PULSE 67; O2SAT 97; BMI 29.0
== END 2023-08-16 12:40 | disposition home or self-care (01) ==
PROVIDERS: PCP Internal Medicine; Visit Provider Internal Medicine
DX: I10 Essential (primary) hypertension (principal); M17.12 Unilateral primary osteoarthritis, left knee; R73.9 Hyperglycemia, unspecified; E78.5 Hyperlipidemia, unspecified
CPT/HCPCS: 99214

== ENCOUNTER 2023-08-18 10:04 | Outpatient (REF) | payer OTHER, SELFPAY ==
[2023-08-18 13:16] LABS: MANUAL DIFF FLAG NO
[2023-08-18 13:25] LABS: Anion Gap 9 (12-20); Blood Urea Nitrogen 8 mg/dL (9-16); Carbon Dioxide 29 mmol/L (22-29); Chloride 103 mmol/L (96-108); Estimated Glomerular Filt Rate > 60; Glucose Random 114 mg/dL (60-115); Potassium 4.6 mmol/L (3.3-5.1); Sodium 136 mmol/L (135-145)
[2023-08-18 13:29] LABS: Basophils Absolute Auto 0.1 X10*3/uL (0.0-0.2); Basophils Percent Auto 1.2 % (0-2); Eosinophils Absolute Auto 0.3 X10*3/uL (0.0-0.4); Eosinophils Percent Auto 4.4 % (0-4); Hematocrit 41.1 % (42.0-52.0); Hemoglobin 13.2 g/dl (14.0-18.0); Imm Gran Abs Auto 0.02 X10*3/uL (0.00-0.03); Imm Gran Pct Auto 0.3 % (0.0-0.4); Lymphocytes Absolute Auto 2.3 X10*3/uL (1.2-4.9); Lymphocytes Percent Auto 31.3 % (20-40); Mean Corpuscular HGB Conc 32.1 g/dl (31.0-36.0); Mean Corpuscular Hemoglobin 27.8 pg (27.0-33.0); Mean Corpuscular Volume 86.5 fL (80.0-98.0); Monocytes Absolute Auto 0.5 X10*3/uL (0.1-1.2); Monocytes Percent Auto 7.1 % (2-11); Neutrophils Absolute Auto 4.1 x10*3/uL (2.0-8.3); Neutrophils Percent Auto 55.7 % (45-73); Platelet Count 341 X10*3/uL (160-400); Red Blood Count 4.75 X10*6/uL (4.60-5.80); White Blood Count 7.3 X10*3/uL (4.8-10.8)
== END 2023-08-18 10:05 | disposition home or self-care (01) ==
LOC: HO.HMGCLDS 10:04
PROVIDERS: PCP Internal Medicine; Visit Provider Internal Medicine
DX: I10 Essential (primary) hypertension (principal)
CPT/HCPCS: 36415; 80048; 85025

== ENCOUNTER 2023-08-31 13:07 | Outpatient (AMB) | payer OTHER, SELFPAY ==
--- NOTE | 2023-08-31 07:52 | MHC.OFFVIS ---
Intake Vital Signs 08/31/23 13:22 Height 6 ft 3 in Weight 232 lb BMI 29.0 Intake Visit Reasons: Preop-LT TKA 09/05/23 NE Intake Note: Parveen a 68 year old male presents today for a preoperative left TKA on 09/05/23 NE. Pain management agreement reviewed and signed. Allergies venlafaxine [From EFFEXOR] Adverse Reaction (Intermediate, Verified 08/31/23 13:26) itching/rash Medication List - Last Reconciled 08/31/23 by Kallie Aguilar PA-C amlodipine 10 mg PO DAILY atenolol 50 mg PO DAILY atorvastatin 20 mg PO BEDTIME elderberry fruit and flower 460-115 mg 1 cap PO DAILY gabapentin 800 mg PO TID lisinopril 40 mg PO DAILY omeprazole 20 mg PO DAILY tramadol 50 mg PO BID vitamin B complex 1 tab PO DAILY walker Folding front wheeled walker HPI HPI Comments History of Present Illness Details Mr Vallejo presents to the office today for preop visit. He is scheduled for left total knee arthroplasty with Dr. Walton. He continues to have ongoing pain and difficulty with ambulation in the left knee, which is affecting his quality of life; therefore, he has elected to move forward with surgery. [facility] Medical History (Updated 08/31/23 @ 07:52 by Kallie Aguilar PA-C) Osteoarthritis of right knee Family history of malignant hyperthermia Esophageal stricture COVID-19 vaccine series completed Venous insufficiency of both lower extremities H/O ETOH abuse Hyperlipidemia Hypertension Neuropathy Arthritis Peripheral neuropathy Surgical History History of total right knee replacement History of esophagogastroduodenoscopy (EGD) Hx of colonoscopy Social History Household Members: Family Household Members Other:: , 2 sons Housing: House Are you a primary physician assistant primary care to a significant other at home: No Do you presently have visiting nurse or other home services: No Patient Tobacco Use Status: Former Tobacco user Quit Date: 1998 Tobacco use type: Cigarette Years Smoked: 27 e-Cigarette/Vaping Use: Never Used service: No Current occupational status: retired Current occupation: rt handed Cognitive needs: No Hearing needs: No Vision needs: No Review of Systems Const All systems reviewed & are unremarkable except as noted in HPI and below Physical Exam Vital Signs: BMI result Body Mass Index 29.0 Const General: cooperative and no acute distress Orientation/consciousness: patient oriented x3 HEENT Head: Yes normal to inspection, Yes normocephalic and Yes atraumatic Eyes General: appearance normal, both eyes and all related structures Neck Neck: Yes normal visual inspection and Yes no lymphadenopathy Resp Effort & Inspection: normal respiratory effort and able to speak in complete sentences Cardio Rate: regular rate Peripheral pulses: Peripheral pulses 2+ throughout GI Inspection: Yes normal to inspection Palpation (GI): Soft to palpation Skin General skin exam: no rashes or lesions noted Neuro General: patient oriented x3 Extrem Other: Left knee skin intact, no open wounds or lacerations. ROM 0-95, calf supple non tender, NVI. Psych Appearance: grossly normal Mental Status: mental status grossly normal Assessment & Plan Assessment & Plan (1) Osteoarthritis of left knee: Code(s): M17.12 - Unilateral primary osteoarthritis, left knee Qualifiers: Osteoarthritis type: primary Qualified Code(s): M17.12 - Unilateral primary osteoarthritis, left knee Plan: I discussed in detail the procedure and what to expect pre and post operatively. We discussed the risks, benefits and alternatives to the surgery as well as the rehabilitation course. The risks; which include, but are not limited to infection, bleeding, nerve injury, ongoing pain, swelling, and stiffness, perioperative risk of injury to bones and soft tissues, and blood clots. I?ve answered all questions and with their understanding they have consented to move forward with Left total knee arthroplasty with Dr. Anton Chavez docusate sodium 100 mg Capsule 100 mg PO BID 14 Days Qty: 28 0RF oxycodone 10 mg tablet 10 mg PO Q4H PRN (Reason: Pain, Moderate (Pain Scale 4-6) 7 Days Qty: 42 0RF celecoxib 200 mg Capsule 200 mg PO BID 30 Days Qty: 60 0RF acetaminophen 325 mg Tablet 650 mg PO Q6H PRN (Reason: Pain, Mild (Pain Scale 1-3)) 30 Days Qty: 240 0RF aspirin 325 mg Tablet 325 mg PO BID 42 Days Qty: 84 0RF Orders: Orders PT Evaluation and Treatment Today Z96.652 - Presence of left artificial knee joint Patient Instructions: Scribed for Kallie Aguilar PA-C, by Tom Abhang, medical collections representative, on 08/31/2023 at 1:15 PM Kallie REED PA-C, have personally reviewed and agree with the information entered by the scribe. Coding Level of Care Code Est Pt Level 3 (03791) Diagnoses Primary osteoarthritis of left knee M17.12 Osteoarthritis type: primary
[2023-08-31 13:22] VITALS: BMI 29.0
== END 2023-08-31 15:26 | disposition home or self-care (01) ==
PROVIDERS: PCP Internal Medicine; Referring Provider Internal Medicine; Visit Provider Physician Assistant
DX: M17.12 Unilateral primary osteoarthritis, left knee (principal)
CPT/HCPCS: 99213

== ENCOUNTER → 2023-08-31 13:07 | Outpatient (BNVA) | payer OTHER, SELFPAY | PROVIDERS: PCP Internal Medicine; Visit Provider Physician Assistant ==

== ENCOUNTER 2023-09-05 05:53 | Day surgery (SDC) | payer MEDICARE, SELFPAY ==
[2023-08-29 12:17] VITALS: BP 133/83; PULSE 74; RESP 18; O2SAT 95; BMI 29.4
--- NOTE | 2023-08-29 12:41 | HO.ANESPROP2 ---
Documented by User: Nida Parham NP 09/01/23 14:27 HPI - Anesthesia Eval Consult details Narrative: 68yo M for Left Knee Replacement Total Medically cleared s/p Right TKA 2021 with Spinal / Block - Pt reports nerve block did not work last time. 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 No recent illness No CP/SOB within limits of pain RISK FOR MHSon and nephew tested positive, pt never tested, never rec'd [facility] PMFSH Active Problems Active Problems: All Active Problems (Updated 04/28/23 @ 13:35 by Radha Aguayo MD) Annual physical exam (Acute) Osteoarthritis of left knee (Acute) Hyperglycemia (Acute) Anemia (Acute) Nontraumatic rupture of right quadriceps tendon (Acute) Status post total right knee replacement (Acute) Osteoarthritis of knees, bilateral (Acute) Neuropathy (Acute) Hypertension (Acute) Hyperlipidemia (Acute) Hx of colonoscopy (Acute) Venous insufficiency of both lower extremities (Acute) Past Medical History Medical History Osteoarthritis of right knee Family history of malignant hyperthermia Esophageal stricture COVID-19 vaccine series completed Venous insufficiency of both lower extremities H/O ETOH abuse Hyperlipidemia Hypertension Neuropathy Arthritis Peripheral neuropathy Family History Family history of problems with anesthesia: Yes Surgical History Surgical History History of total right knee replacement History of esophagogastroduodenoscopy (EGD) Hx of colonoscopy History of Problems with Anesthesia: No Social History Social History Household Members: Family Household Members Other:: , 2 sons Housing: House Are you a primary behavioral health care coordinator to a significant other at home: No Do you presently have visiting nurse or other home services: No Patient Tobacco Use Status: Former Tobacco user Quit Date: 1998 Tobacco use type: Cigarette Years Smoked: 27 e-Cigarette/Vaping Use: Never Used Use of substances other than those prescribed or required for medical reasons: No Substance Use Type Other:: edible Substance Use Frequency: Occasionally Have you been hit, kicked, punched, or otherwise hurt by someone within the past year? If so, by whom?: No Advance Directives: No Advance Directives Information Provided: Yes Advance Directives on File: No Recently lost weight without trying: No Eating poorly because of decreased appetite: No Nutrition Risks: No Nutritional Risk Poor oral hygiene: Yes (full upper and lower dentures) service: No Current occupational status: retired Current occupation: rt handed Cognitive needs: No Hearing needs: No Vision needs: No Meds Allergies Allergy/AdvReac Type Severity Reaction Status Date / Time venlafaxine [From EFFEXOR] AdvReac Intermediate itching/scarlett Verified 08/31/23 13:26 h Home Medications Medication Instructions Recorded Confirmed Last Taken Type gabapentin 800 mg tablet 800 mg PO TID 06/11/21 08/31/23 09/05/23 06:32 History elderberry fruit 460 mg-elderberry 1 cap PO DAILY 09/01/21 08/31/23 Unknown History flower 115 mg capsule vitamin B complex 1 tab PO DAILY 09/01/21 08/31/23 09/04/23 History tramadol 50 mg tablet 50 mg PO BID 09/26/22 08/31/23 09/04/23 History Exam Exam Date and Time: September 01, 2021 1223 Height,Weight and Vital Signs: Height 6 ft 3 in Weight 106.594 kg Last Vital Signs Pulse 74 08/29/23 12:17 Resp 18 08/29/23 12:17 BP 133/83 08/29/23 12:17 Pulse Ox 95 08/29/23 12:17 O2 Del Method Room Air 08/29/23 12:17 Pertinent Lab Results Pertinent Lab Results: Laboratory Tests 08/18/23 10:10 WBC 7.3 Hgb 13.2 L Hct 41.1 L Plt Count 341 Sodium 136 Potassium 4.6 Chloride 103 Carbon Dioxide 29 BUN 8 L Creatinine 0.80 Narrative Narrative: EKG 08/2023 NSR @ 63 Airway Mallampati Class: III TM Dist: >3cm Neck ROM: Full Denture: Upper and Lower Heart: RRR Lungs: CTAB Assessment and Plan Assessment Anesthesia Assessment: Anesthesia Plan Discussed and PAT Visit Final Anesthetic Review Family History of Problems with Anesthesia: Yes History of Problems with Anesthesia: No Documented by User: Ashley Mora MD 09/05/23 08:30 [facility] Past Medical History Medical History Osteoarthritis of right knee Family history of malignant hyperthermia Esophageal stricture COVID-19 vaccine series completed Venous insufficiency of both lower extremities H/O ETOH abuse Hyperlipidemia Hypertension Neuropathy Arthritis Peripheral neuropathy Surgical History Surgical History History of total right knee replacement History of esophagogastroduodenoscopy (EGD) Hx of colonoscopy Social History Social History Household Members: Family Household Members Other:: , 2 sons Housing: House Are you a primary behavioral health care coordinator to a significant other at home: No Do you presently have visiting nurse or other home services: No Patient Tobacco Use Status: Former Tobacco user Quit Date: 1998 Tobacco use type: Cigarette Years Smoked: 27 e-Cigarette/Vaping Use: Never Used Use of substances other than those prescribed or required for medical reasons: No Substance Use Type Other:: edible Substance Use Frequency: Occasionally Have you been hit, kicked, punched, or otherwise hurt by someone within the past year? If so, by whom?: No Advance Directives: No Advance Directives Information Provided: Yes Advance Directives on File: No Recently lost weight without trying: No Eating poorly because of decreased appetite: No Nutrition Risks: No Nutritional Risk Poor oral hygiene: Yes (full upper and lower dentures) service: No Current occupational status: retired Current occupation: rt handed Cognitive needs: No Hearing needs: No Vision needs: No Meds Allergies Allergy/AdvReac Type Severity Reaction Status Date / Time venlafaxine [From EFFEXOR] AdvReac Intermediate itching/scarlett Verified 08/31/23 13:26 h Home Medications Medication Instructions Recorded Confirmed Last Taken Type gabapentin 800 mg tablet 800 mg PO TID 06/11/21 08/31/23 09/05/23 06:32 History elderberry fruit 460 mg-elderberry 1 cap PO DAILY 09/01/21 08/31/23 Unknown History flower 115 mg capsule vitamin B complex 1 tab PO DAILY 09/01/21 08/31/23 09/04/23 History tramadol 50 mg tablet 50 mg PO BID 09/26/22 08/31/23 09/04/23 History Assessment and Plan Final Anesthetic Review NPO: Yes ASA Class: III Final Preanesthetic Review: No Changes in Pt Med Stat, Meds/Allgs Chart Reviewed, Consent Obtained/Reviewed and Anes Risks/Benef Reviewed ( PRECAUTIONS) Patient Risk: Intermediate Procedure Risk: Intermediate Anesthetic Plan Anesthetic Plan: Spinal and Regional Block Disposition: Standard PACU
[2023-08-29 14:35] LABS: MRSA Nasal PCR NEGATIVE (Negative); SA Nasal PCR NEGATIVE (Negative)
[2023-09-05] VITALS (19 sets, daily range): BP systolic 110–156; BP diastolic 64–83; PULSE 59–74; RESP 12–18; TEMP 36.3–36.7; O2SAT 95–99; BMI 29.8
--- NOTE | ~2023-09-05 | XR_ITS ---
EXAMINATION: XR KNEE, LEFT CLINICAL INFORMATION: Left TKA. COMPARISON: None available. TECHNIQUE: 2 views of the left knee. FINDINGS: There is a total left knee prosthesis with the prosthetic components in satisfactory alignment. There is gas within the joint space and clark visualized along the anterior skin from previous intervention. XR/XR knee LT 2V IMPRESSION: Total left knee prosthesis with prosthetic components in satisfactory alignment.
[2023-09-05 06:52] LABS: Hematocrit 39.9 % (42.0-52.0); Hemoglobin 13.2 g/dl (14.0-18.0)
--- NOTE | 2023-09-05 07:29 | MHC.SHP ---
Pre-Procedural Eval Section A - 24 Hr Update-Section A only Date of Service: 09/05/23 The patient is an INPATIENT: No Changes since office visit: No Cold of Flu in the past 2 weeks, No New Medical Problems, No Changes in Medication and No Patient answered all questions The patient has been examined within 24 hours of the surgical procedure. The History & Physical has been completed within 30 days and I have reviewed it.: Yes Section B - Complete if H&P > 30 days Chief Complaint: Unilateral primary osteoarthritis, left knee Allergies: Allergies Allergy/AdvReac Type Severity Reaction Status Date / Time venlafaxine [From EFFEXOR] AdvReac Intermediate itching/scarlett Verified 08/31/23 13:26 h Plan I have reviewed the history and physical and performed a pertinent physical examination on my patient. No changes have occurred unless specified. Time Spent With Patient Time: Total time managing care of this patient today ____ minutes.
[2023-09-05] MEDS: oxyCODONE HCl Immed Release 5 MG TABLET PO ×2 (10:11→10:54)
--- NOTE | 2023-09-05 10:16 | PHA.MEDREC ---
Pharmacy Consult ? Medication Reconciliation Pharmacy has completed the medication reconciliation. reviewed med rec done by nursing
[2023-09-05] MEDS: fentaNYL citrate/PF 100 MCG/2 ML VIAL 25 MCG IVPUSH (11:49)
--- NOTE | 2023-09-05 12:20 | HO.PM.IMCN ---
History of Present Illness Data of Consult Service Date: 09/05/23 Requesting physician: Kallie Aguilar Primary Care Provider: Radha Aguayo MD HPI Reason for consult: medical management 68 year old male with history of polyneuropathy, htn, hld, venous insufficiency, gerd, FH malignant hyperthermia admitted to orthopedic surgery for management of OA L knee s/p TKA with consult placed to hospitalist service for medical management. The patient has not had any alcohol in several years and denies illicit drug use. Does use thc edibles but does not smoke mj. No cigarette use. He required straight cath drainaging1.3 L while in the PACU and has not yet urianted. Does report sensation is returning to lower extremities and is reporting significant discomfort in the L knee. Otherwise has no complaints. Review of Systems Review of Systems: General: No fevers, malaise, unintentional weight loss HEENT: No blurred vision, diplopia. No sore throat, nasal congestion, rhinorrhea, sinus pain, ear pain Cardiovascular: No chest pain, palpitations, or leg edema Respiratory: No shortness of breath, wheezing, cough GI: No abdominal pain, nausea, vomiting, diarrhea, constipation, melena, hematochezia : No dysuria, hematuria, increased urinary frequency, decreased urinary output MSK: No myalgia, back pain. +L knee pain Neuro: No headaches, weakness, paresthesias Skin: No rashes or lesions [facility] Medical History Osteoarthritis of right knee Family history of malignant hyperthermia Esophageal stricture COVID-19 vaccine series completed Venous insufficiency of both lower extremities H/O ETOH abuse Hyperlipidemia Hypertension Neuropathy Arthritis Peripheral neuropathy Surgical History History of total right knee replacement History of esophagogastroduodenoscopy (EGD) Hx of colonoscopy Social History Household Members: Family Household Members Other:: , 2 sons Housing: House Are you a primary healthcare facility administrator to a significant other at home: No Do you presently have visiting nurse or other home services: No Patient Tobacco Use Status: Former Tobacco user Quit Date: 1998 Tobacco use type: Cigarette Years Smoked: 27 e-Cigarette/Vaping Use: Never Used Use of substances other than those prescribed or required for medical reasons: No Substance Use Type Other:: edible Substance Use Frequency: Occasionally Have you been hit, kicked, punched, or otherwise hurt by someone within the past year? If so, by whom?: No Advance Directives: No Advance Directives Information Provided: Yes Advance Directives on File: No Recently lost weight without trying: No Eating poorly because of decreased appetite: No Nutrition Risks: No Nutritional Risk Poor oral hygiene: Yes (full upper and lower dentures) service: No Current occupational status: retired Current occupation: rt handed Cognitive needs: No Hearing needs: No Vision needs: No Meds Allergies Allergy/AdvReac Type Severity Reaction Status Date / Time venlafaxine [From EFFEXOR] AdvReac Intermediate itching/scarlett Verified 08/31/23 13:26 h Active Medications: Current Medications Acetaminophen (Acetaminophen 325 Mg Tablet) 650 mg PO Q6H PRN PRN Reason: Pain, Mild (Pain Scale 1-3) Aspirin (Aspirin 325 Mg Tablet) 325 mg PO BID [facility] Atenolol (Atenolol 50 Mg Tablet) 50 mg PO DAILY [facility]; Protocol Celecoxib (Celecoxib 200 Mg Capsule) 200 mg PO BID [facility] Docusate Sodium (Docusate Sodium 100 Mg Capsule) 100 mg PO BID [facility] Gabapentin (Gabapentin 400 Mg Capsule) 800 mg PO TID [facility] Hydromorphone HCl (Hydromorphone Hcl 0.5 Mg/0.5 Ml Syringe) 0.25 mg IVPUSH Q4H PRN; Protocol PRN Reason: Pain, Severe (Pain Scale 7-10) Cefazolin Sodium/Dextrose (Ancef) 2 gm in 50 mls @ 100 mls/hr IV POSTOP ONE Stop: 09/05/23 12:45 Omeprazole (Omeprazole 20 Mg Capsule.Dr) 20 mg PO DAILY [facility] Ondansetron HCl (Ondansetron Hcl 4 Mg/2 Ml Vial) 4 mg IVPUSH Q8H PRN PRN Reason: Nausea and Vomiting Oxycodone HCl (Oxycodone Hcl Immed Release 5 Mg Tablet) 10 mg PO Q4H PRN PRN Reason: Pain, Moderate(Pain Scale 4-6) Oxycodone HCl (Oxycodone Hcl Er 10 Mg Tab.Er.12h) 10 mg PO BID [facility] Sodium Chloride (0.9 % Sodium Chloride Flush 3 Ml Syringe) 3 ml IVFLUSH QSHIFT [facility] Home Medications Medication Instructions Recorded Confirmed Last Taken Type gabapentin 800 mg tablet 800 mg PO TID 06/11/21 08/31/23 09/05/23 06:32 History elderberry fruit 460 mg-elderberry 1 cap PO DAILY 09/01/21 08/31/23 Unknown History flower 115 mg capsule vitamin B complex 1 tab PO DAILY 09/01/21 08/31/23 09/04/23 History tramadol 50 mg tablet 50 mg PO BID 09/26/22 08/31/23 09/04/23 History omeprazole 20 mg capsule,delayed 20 mg PO DAILY@0630 09/05/23 09/05/23 09/05/23 06:32 History release Physical Exam Vital Signs and Narrative: Vital Signs: Last Vital Signs Temp 98 F 09/05/23 11:40 Pulse 62 09/05/23 12:04 Resp 16 09/05/23 12:04 BP 141/80 H 09/05/23 12:04 Pulse Ox 99 09/05/23 12:04 O2 Del Method Room Air 09/05/23 12:04 BMI result Body Mass Index 29.4 Constitutional - Awake and Alert, No apparent distress Eyes - PERRLA, EOMI Cardiovascular - S1S2, RRR, 1+ edema Respiratory - Normal lung expansion, Normal respiratory effort, No respiratory distress, CTA bilaterally Gastrointestinal - NT / ND; +BS; No rebound or guarding Extremities - no calf tenderness bilaterally, no swelling Skin - Warm/Dry. Patchy hyperpigmentation of the lower legs bilaterally Neurological - Alert & oriented x3 Psychological - Appropriate affect Results Labs 09/05/23 06:29 Imaging Radiologist's Impressions: Impressions Knee X-Ray 09/05/23 10:03 IMPRESSION: Total left knee prosthesis with prosthetic components in satisfactory alignment. Assessment and Plan (1) Osteoarthritis of left knee: Qualifiers: Osteoarthritis type: primary Qualified Code(s): M17.12 - Unilateral primary osteoarthritis, left knee Status: Acute Plan 68 year old male with history of polyneuropathy, htn, hld, venous insufficiency, gerd, FH malignant hyperthermia admitted to orthopedic surgery for management of OA L knee s/p TKA with consult placed to hospitalist service for medical management. #OA L Knee s/p TKA -POD 0 -plan per ortho surgery #htn -bp reasonably controlled -resume lisinopril, atenolol, amlodipine #HLD -continue statin #Polyneuropathy due to prior etoh abuse -continue gabapentin #GERD -continue ppi #FH MH -currently afebile, anesthesiology aware -monitor vs Thank you for allowing me to participate in this consult. Signing off at this time. Please do not hesitate to call for further questions or for any acute medical issues
[2023-09-05] MEDS: HYDROmorphone HCl 0.5 MG/0.5 ML SYRINGE 0.25 MG IVPUSH ×2 (14:23→19:38)
[2023-09-05] MEDS: Gabapentin 400 MG CAPSULE 800 MG PO ×2 (14:26→21:07)
[2023-09-05] MEDS: 0.9 % Sodium Chloride Flush 3 ML SYRINGE IVFLUSH ×2 (14:27→21:07)
[2023-09-05] MEDS: ceFAZolin Sodium/Dextrose,Iso 2 GM/50 ML PIGGYBACK IV (14:27)
[2023-09-05] MEDS: oxyCODONE HCl Immed Release 5 MG TABLET 10 MG PO (15:59)
[2023-09-05] MEDS: Acetaminophen 325 MG TABLET 650 MG PO (16:02)
[2023-09-05] MEDS: oxyCODONE HCl ER 10 MG TAB.ER.12H PO (21:06)
[2023-09-05] MEDS: Docusate Sodium 100 MG CAPSULE PO (21:07)
[2023-09-05] MEDS: Celecoxib 200 MG CAPSULE PO (21:07)
[2023-09-06] VITALS: BP 144/84; PULSE 75; RESP 16; TEMP 37.2; O2SAT 94
[2023-09-06] MEDS: oxyCODONE HCl Immed Release 5 MG TABLET 10 MG PO ×3 (01:31→09:43)
[2023-09-06] MEDS: Acetaminophen 325 MG TABLET 650 MG PO ×2 (01:32→05:28)
[2023-09-06 03:41] VITALS: BP 136/75; PULSE 75; RESP 18; TEMP 37; O2SAT 93
[2023-09-06] MEDS: Omeprazole 20 MG CAPSULE.DR PO (05:25)
[2023-09-06 06:04] LABS: MANUAL DIFF FLAG NO
[2023-09-06 06:27] LABS: Basophils Percent Auto 0.3 % (0-2); Eosinophils Absolute Auto 0.1 X10*3/uL (0.0-0.4); Eosinophils Percent Auto 0.6 % (0-4); Hematocrit 34.1 % (42.0-52.0); Hemoglobin 11.3 g/dl (14.0-18.0); Imm Gran Abs Auto 0.03 X10*3/uL (0.00-0.03); Imm Gran Pct Auto 0.3 % (0.0-0.4); Lymphocytes Absolute Auto 1.7 X10*3/uL (1.2-4.9); Lymphocytes Percent Auto 16.7 % (20-40); Mean Corpuscular HGB Conc 33.1 g/dl (31.0-36.0); Mean Corpuscular Hemoglobin 27.9 pg (27.0-33.0); Mean Corpuscular Volume 84.2 fL (80.0-98.0); Mean Platelet Volume 9.7 fL (9.4-12.4); Monocytes Absolute Auto 1.3 X10*3/uL (0.1-1.2); Monocytes Percent Auto 12.8 % (2-11); Neutrophils Percent Auto 69.3 % (45-73); Platelet Count 277 X10*3/uL (160-400); Red Blood Count 4.05 X10*6/uL (4.60-5.80); Red Cell Distribution Width 12.9 % (11.0-16.0); White Blood Count 10.1 X10*3/uL (4.8-10.8)
[2023-09-06 06:42] LABS: Anion Gap 11 (12-20); Blood Urea Nitrogen 11 mg/dL (9-16); Calcium 8.7 mg/dL (8.4-10.2); Carbon Dioxide 28 mmol/L (22-29); Chloride 103 mmol/L (96-108); Creatinine Clr Calc Pharmacy 118.5; Estimated Glomerular Filt Rate > 60; Glucose Fasting 112 mg/dL (60-99); Potassium 5.3 mmol/L (3.3-5.1); Sodium 137 mmol/L (135-145)
[2023-09-06] MEDS: Aspirin 325 MG TABLET PO (07:10)
[2023-09-06] MEDS: Docusate Sodium 100 MG CAPSULE PO (07:10)
[2023-09-06] MEDS: Celecoxib 200 MG CAPSULE PO (07:10)
[2023-09-06] MEDS: oxyCODONE HCl ER 10 MG TAB.ER.12H PO (07:10)
[2023-09-06] MEDS: Gabapentin 400 MG CAPSULE 800 MG PO (07:10)
[2023-09-06] MEDS: atenoloL 50 MG TABLET PO (07:11)
--- NOTE | 2023-09-06 07:19 | PM.DS ---
DS: Providers Provider Date of Service: 09/06/23 Primary care physician: Radha Aguayo MD Consults: 09/05/23 12:16 Consult to Hospitalist Routine Comment: Consulting Provider: Hospitalist Reason For Exam: POST OP MEDICAL MGMNT, HTN DS: Diagnosis Discharge Diagnosis (1) Osteoarthritis of left knee: Status: Acute DS: Summary Hospital Course Hospital Course: The patient underwent a successful left total knee arthroplasty, they were transferred to PACU and then to the floor to recover. During their stay, their vitals were stable, afebrile at 98.6. Labs were unremarkable, H/H 11.3/34.1. POD 1 they were started on Aspirin 325mg po bid for DVT ppx, they also received Physical Therapy services. Prior to discharge, their dressing was clean dry and intact, and the plan was to be discharged home with VNA services. Time Attestation Discharge Coordination Time: discharge time of ____ minutes Quality: Safe Use of Opioids Does Pt have an Active Cancer Diagnosis on the Problem List?: No Quality: Stroke Does the patient have a stroke diagnosis?: No Physical Exam Vital Signs: Vital Signs: Last Vital Signs Temp 98.6 F 09/06/23 03:41 Pulse 75 09/06/23 03:41 Resp 18 09/06/23 03:41 BP 136/75 09/06/23 03:41 Pulse Ox 93 09/06/23 03:41 O2 Del Method Room Air 09/06/23 03:41 BMI result Body Mass Index 29.8 Const: General: cooperative, healthy appearing and no acute distress Resp: Effort & Inspection: normal respiratory effort and able to speak in complete sentences Cardio: Rate: regular rate Peripheral pulses: Peripheral pulses 2+ throughout GI: Palpation (GI): Soft to palpation Skin: Lesions: no lesions Rashes: no rashes Extrem: Other: left knee dressing is c/d/i. Able to dorsi/plantar flex. Calf is supple and nontender. Sensation intact. Pedal pulse intact. DS: Data Data Completed and Pending Completed studies during hospitalization [Text1]: Procedures Replacement of Right Knee Joint with Synthetic Substitute, Uncemented, Open Approach (09/14/21) Pending studies at discharge: Pending at discharge 09/05/23 08:22 Surgical [PTH] Routine Labs on day of discharge: Laboratory Results - last 24 hr 09/06/23 09/06/23 05:39 05:40 WBC 10.1 RBC 4.05 L Hgb 11.3 L Hct 34.1 L MCV 84.2 MCH 27.9 MCHC 33.1 RDW 12.9 Plt Count 277 MPV 9.7 Immature Gran % (Auto) 0.3 Neut % (Auto) 69.3 Lymph % (Auto) 16.7 L Franklin % (Auto) 12.8 H Eos % (Auto) 0.6 Baso % (Auto) 0.3 Lymph # (Auto) 1.7 Franklin # (Auto) 1.3 H Eos # (Auto) 0.1 Baso # (Auto) 0.0 Abs Immat Gran (auto) 0.03 Absolute Neuts (auto) 7.0 Absolute Nucleated RBC 0.000 Nucleated RBC % (auto) 0.0 Sodium 137 Potassium 5.3 H Chloride 103 Carbon Dioxide 28 Anion Gap 11 L BUN 11 Creatinine 0.77 Estim Creat Clear Calc 118.5 Estimated GFR > 60 Fasting Glucose 112 H Calcium 8.7 Discharge Plan Discharge Patient Disposition: Home Health Service Referrals: Kallie Aguilar PA-C [Physician Shipping Coordinator] - 09/21/23 1:00 pm Discharge Medications: New acetaminophen 325 mg Tablet 650 mg PO Q6H PRN (Reason: Pain, Mild (Pain Scale 1-3)) 30 Days Qty: 240 0RF aspirin 325 mg Tablet 325 mg PO BID 42 Days Qty: 84 0RF celecoxib 200 mg Capsule 200 mg PO BID 30 Days Qty: 60 0RF oxycodone 10 mg tablet 10 mg PO Q4H PRN (Reason: Pain, Moderate(Pain Scale 4-6)) 7 Days Qty: 42 0RF Rx Instructions: Partial Fill upon patient request. docusate sodium 100 mg Capsule 100 mg PO BID 30 Days Qty: 60 0RF Continued atenolol 50 mg tablet 50 mg PO DAILY Qty: 90 3RF lisinopril 40 mg tablet 40 mg PO DAILY Qty: 90 3RF atorvastatin 20 mg tablet 20 mg PO BEDTIME Qty: 90 1RF amlodipine 10 mg tablet 10 mg PO DAILY Qty: 90 1RF vitamin B complex Tablet 1 tab PO DAILY elderberry fruit and flower 460-115 mg Capsule 1 cap PO DAILY omeprazole 20 mg capsule,delayed release(DR/EC) 20 mg PO DAILY@0630 tramadol 50 mg tablet 50 mg PO BID gabapentin 800 mg tablet 800 mg PO TID (DME) walker Misc See Rx Instructions .ROUTE .MEDSUPPLY Qty: 1 0RF Rx Instructions: Folding front wheeled walker Discharge Orders: Discharge Order (Routine); Ordered 09/06/23 Ordered By: Sully Abdul Diet: Advance to usual diet Activity on Discharge: Use cane or walker Activity Restrictions/Additional Instructions: Physical Therapy for ROM 0-120, quad strength, gait training. Use walker for ambulation Limit stair climbing, No shower, No tub bath, No driving Continue anticoagulant x 6 weeks Keep Aquacel dressing clean, dry and intact. Follow up with orthopedics in 2 weeks
--- NOTE | 2023-09-06 07:20 | W.MHC.F2F ---
Service Date Service Date: 09/06/23 Encounter Date of encounter: 09/06/23 Reasons for Services Signs and symptoms assessed: s/p LTKA. Pt. is considered homebound due to recent surgery. Unable to drive, poor balance, poor gait mechanics. Reason for physical therapy: home safety and mobility, therapeutic exercises, restore joint function, gait/transfer training, assess need for DME and ADL training Homebound: Leaving the home is medically contraindicated at this time without the asist of a device and/or another person due th the listed conditions above and below. Reason homebound: unsteady gait / fall risk, leg weakness, pain with ambulation, pain with transfers, poor balance / fall risk and unable to drive Certification: Based on the above findings, I certify that this patient is confined to the home and needs intermittent correction care, physical therapy and/or speech therapy, or continues to need occupational therapy. The patient is under my care, and I have initiated the establishment of the plan of care. The patient will be followed by a physician who will periodically review the plan of care. Time Spent With Patient Time: Total time managing care of this patient today ____ minutes.
[2023-09-06 07:51] VITALS: BP 132/74; PULSE 73; RESP 17; TEMP 36.9; O2SAT 96
[2023-09-06 08:32] VITALS: BP 132/74; PULSE 73; O2SAT 96
--- NOTE | 2023-09-06 08:44 | MHC.CM.PN ---
CM MET WITH PT AT BEDSIDE. PT LIVES WITH AND IS INDEPENDENT AT BASELINE. +HCP ON FILE PCP DR. NGUYEN DP: PT HAS BEEN MEDICALLY CLEARED FOR DC HOME WITH NEW [facility] ([facility] FOR HOME P.T. [facility] NOTIFIED OF TODAY'S DC. PT HAS OWN RIDE HOME.
--- NOTE | 2023-09-06 13:15 | PM.EVENT ---
Event Note Date of Service: 09/06/23 Event Note: Parveen describes a hyperflexion injury while getting into bed last night/early today and worsening knee pain. He has swelling and increased pain. He is going to take and extra oxycodone every 8 hours for the next 72 hours. We will follow closely. Time Spent With Patient Time: Total time managing care of this patient today ____ minutes.
--- NOTE | 2023-09-07 08:32 | HO.POSTANES ---
Post Anesthesia Evaluation Post Anesthesia Evaluation Date of Service: 09/06/23 Vital Signs: Patient seen on 09/06/23 aT 845AM 132/74, 73, 17, 98.4F, 96%RA Anesthesia: Spinal and Nerve Block Mental Status: Awake Pain Control: Satisfactory (difficult to control) Nausea/Vomiting: None Hydration: Adequate Anesthesia-Related Issues: No Anes. Related Issues
--- NOTE | 2023-09-08 17:17 | PM.OP ---
Brief Operative Note Date of Service: 09/05/23 Pre-op diagnosis: Left knee OA Post-op diagnosis: same Procedure: Left TKA Implants: [place] [employer]lon 12/06/13ps/35a Surgeon: Edy Walton MD Was an Executive Community Planning used for this Procedure?: Yes Executive Community Planning: Kallie Aguilar Estimated blood loss (mL): 25 Tourniquet time (min): 65 IV fluids (mL): 1,000 Pathology: other Condition: stable Disposition: PACU
--- NOTE | 2023-09-08 17:20 | W.PM.OPN ---
Operative Note Operative Note Date of Service: 09/05/23 Narrative: Date of Service: 09/05/23 Pre-op diagnosis: Left knee OA Post-op diagnosis: same Procedure: Left TKA Implants: [place] [employer]lon 12/06/13ps/35a Surgeon: Edy Walton MD Was an Gasser Machine Operator used for this Procedure?: Yes Gasser Machine Operator: Kallie Aguilar Estimated blood loss (mL): 25 Tourniquet time (min): 65 IV fluids (mL): 1,000 Pathology: other Condition: stable Disposition: PACU Procedure in detail: The patient was brought to the operating room and prepped and draped in standard sterile fashion. A time-out was called to identify proper site proper procedure proper surgeon and IV antibiotics were administered. 1 g of IV TXA acid was administered. I began by making a midline incision to the retinaculum and performed a medial parapatellar arthrotomy. The patella was translated laterally and the knee was flexed up. There was tricompartmental eburnation. I performed a small medial peel and resected the infrapatellar fat pad. Casie's line was then used to drill my intramedullary femoral guide and my distal femur cut of 12mm was made in 5 degrees of valgus while protecting the soft tissues. I then measured a #6 femur and placed my cutting guide and made my anterior posterior and chamfer cuts protecting the soft tissues at all times. I then made my box but removing the PCL. Once I was satisfied with my cuts I turned my attention to the tibia. I removed the meniscus medially and laterally and , using an external cutting guide, in line with the tibial crest and the third ray, I made my distal tibial cut in 0 deg slope of while protecting the posterior soft tissues at all times. An extension block was used to confirm appropriate amount of bony resection. I then sized a #6 tibia and once I was satisfied that there was complete tibial coverage I placed my trial and with the trial femur in place took the knee through range of motion. I was satisfied with the extension and flexion as well as the balance at 0, 30 and 90 degrees. I then turned my attention to the patella where I removed 1 cm from the undersurface of the patella and then trialed a 35a patellar button. Again the knee was taken through range of motion I was satisfied with the tracking. I then prepared the tibia with a drill and punch. A femoral bone plug was placed and the knee was irrigated copiously. I then cemented the patella, tibia and femur in standard fashion. Axial compression and a clamp were used while the cement dried. Once the cement was hard on the back table all excess cement was removed and I trialed different inserts until I selected a #14ps insert. The final insert was placed and local TXA was administered. A Werewolf cautery wand was used to maintain hemostasis over the capsule and meniscal beds, the gutters and peripatellar soft tissues. The knee was then closed with a running Quill suture, a 3 0 Vicryl and clark on the skin. Patient was then placed in sterile dressing and brought to recovery room in stable condition there were no known complications.
== END 2023-09-06 12:07 | disposition home health service (06) ==
LOC: HO.SSS 05:54 → HO.S3 11:37
PROVIDERS: Physician Assistant; PCP Internal Medicine; Visit Provider Orthopaedic Surgery
PROC: (CPT 27447; principal; 2023-09-05 07:30)
DX: M17.12 Unilateral primary osteoarthritis, left knee (principal); M96.89 Other intraoperative and postprocedural complications and disorders of the musculoskeletal system; G89.18 Other acute postprocedural pain; M25.562 Pain in left knee; R26.2 Difficulty in walking, not elsewhere classified; I10 Essential (primary) hypertension; G62.9 Polyneuropathy, unspecified; Z84.89 Family history of other specified conditions; Z79.899 Other long term (current) drug therapy; Z88.8 Allergy status to other drugs, medicaments and biological substances; Z87.891 Personal history of nicotine dependence; Z96.651 Presence of right artificial knee joint
CPT/HCPCS: 27447; 36415; 73560; 80048; 85014; 85018; 85025; 86850; 86900; 86901; 87640; 87641; 88305; 88311; 97116; 97162; C1713; C1776; J0131; J0665; J0690; J1100; J1170; J1885; J2250; J2371; J2405; J2704; J3010

== ENCOUNTER → 2023-09-05 05:53 | Outpatient (BNV) | payer MEDICARE, SELFPAY | PROVIDERS: PCP Internal Medicine; Visit Provider Physician Assistant | DX: M17.12 Unilateral primary osteoarthritis, left knee (principal); I10 Essential (primary) hypertension | CPT/HCPCS: 99222 ==

== ENCOUNTER → 2023-09-05 05:53 | Outpatient (BNV) | payer MEDICARE, SELFPAY | PROVIDERS: PCP Internal Medicine; Visit Provider Physician Assistant | DX: Z47.1 Aftercare following joint replacement surgery (principal); Z96.652 Presence of left artificial knee joint | CPT/HCPCS: 27447; 99024; 99499; G0180 ==

== ENCOUNTER 2023-09-21 12:43 | Outpatient (AMB) | payer OTHER, SELFPAY ==
--- NOTE | 2023-09-21 06:27 | A.OFFVIS_ITS ---
Intake Intake Visit Reasons: PO-LT TKA 09/05/23 NE Intake Note: Parveen a 68 year old male presents today for a post operative left TKA on 09/05/23 NE. Patient reports he has mild pain and is doing well well. Allergies venlafaxine [From EFFEXOR] Adverse Reaction (Intermediate, Verified 09/21/23 13:15) itching/rash HPI PO-LT TKA 09/05/23 NE HPI Details 68-year-old male who returns to the [facility] today for post-op left TKA, 09/05/[address] Walton. He continues to have pain in the knee and along the lateral aspect of the thigh. He has completed home PT and is ready to transition to out patient PT. He has no other concerns today. [facility] Medical History Osteoarthritis of right knee Family history of malignant hyperthermia Esophageal stricture COVID-19 vaccine series completed Venous insufficiency of both lower extremities H/O ETOH abuse Hyperlipidemia Hypertension Neuropathy Arthritis Peripheral neuropathy Surgical History History of total right knee replacement History of esophagogastroduodenoscopy (EGD) Hx of colonoscopy Social History Household Members: Spouse Household Members Other:: , 2 sons Housing: House Are you a primary home care chaplain to a significant other at home: No Do you presently have visiting nurse or other home services: Yes Patient Tobacco Use Status: Former Tobacco user Quit Date: 1998 Tobacco use type: Cigarette Years Smoked: 27 e-Cigarette/Vaping Use: Never Used Second Hand Smoke Exposure: No Substance Use Type: Marijuana service: No Current occupational status: retired Current occupation: rt handed Cognitive needs: No Hearing needs: No Vision needs: No Review of Systems Const All systems reviewed & are unremarkable except as noted in HPI and below Physical Exam Extrem Other: Left knee Incision clean, dry and intact. No erythema. Mild joint effusion. ROM is 0-95 degrees. Calf supple, nontender. NVI. Results Reviewed Results Reviewed: Brief Operative Note Date of Service: 09/05/23 Pre-op diagnosis: Left knee OA Post-op diagnosis: same Procedure: Left TKA Implants: [place] [employer]athlon 12/06/13ps/35a Surgeon: Edy Walton MD Assessment & Plan Assessment & Plan (1) Status post total left knee replacement: Code(s): Z96.652 - Presence of left artificial knee joint Plan [place] removed, steri strips applied. He will begin to transition to Outpatient PT to continue working on Gait training, ROM and quad strength. No driving for another 4 weeks. He will require ppx abx for dental procedures. He will f/u in 4 weeks, sooner if needed. Medications: Changed From oxycodone Partial Fill upon patient request. 10 mg PO Q6H 10 days PRN 42 tabs 0RF Pain, Moderate(Pain Scale 4-6) To oxycodone Partial Fill upon patient request. 10 mg PO Q6H PRN 42 tabs 0RF Pain, Moderate(Pain Scale 4-6) 7 days Patient Instructions: Scribed for Kallie Aguilar PA-C, by Tom Sosa medical records coder, on 09/21/2023 at 1:00 PM EST. I, Kallie Aguilar PA-C, have personally reviewed and agree with the information entered by the scribe. Coding Level of Care Code Global (88703) Diagnoses Status post total left knee replacement Z96.652
== END 2023-09-21 13:55 | disposition home or self-care (01) ==
PROVIDERS: PCP Internal Medicine; Visit Provider Physician Assistant
DX: Z96.652 Presence of left artificial knee joint (principal)
CPT/HCPCS: 99024

== ENCOUNTER → 2023-09-21 12:43 | Outpatient (BNVA) | payer OTHER, SELFPAY | PROVIDERS: PCP Internal Medicine; Visit Provider Physician Assistant ==

== ENCOUNTER → 2023-10-23 12:37 | Outpatient (BNVA) | payer OTHER, SELFPAY | PROVIDERS: PCP Internal Medicine; Visit Provider Orthopaedic Surgery ==

== ENCOUNTER 2023-10-23 12:38 | Outpatient (AMB) | payer OTHER, SELFPAY ==
--- NOTE | 2023-10-23 12:38 | MHC.OFFVIS ---
Vital Signs 10/23/23 12:43 Height 6 ft 3 in Weight 230 lb BMI 28.7 Intake Visit Reasons: PO 6wk LT TKA 09/05/23 NE Intake Note: Parveen is a 68 year old male who presents today for a post operative appointment s/p left TKA on 09/05/23 NE. Patient reports he has mild pain during ambulation or after PT but feels he is improving. Main concern today is a localized area of swelling on the lateral aspect of left knee. Allergies venlafaxine [From EFFEXOR] Adverse Reaction (Intermediate, Verified 10/23/23 12:41) itching/rash HPI HPI PO 6wk LT TKA 09/05/23 NE: Details: Parveen is a 68 year old male who presents today for a post operative appointment s/p left TKA on 09/05/23 NE. Patient reports he has mild pain during ambulation or after PT but feels he is improving. Main concern today is a localized area of swelling on the lateral aspect of left knee. [facility] Medical History Osteoarthritis of left knee Osteoarthritis of right knee Family history of malignant hyperthermia Esophageal stricture COVID-19 vaccine series completed Venous insufficiency of both lower extremities H/O ETOH abuse Hyperlipidemia Hypertension Neuropathy Arthritis Peripheral neuropathy Surgical History (Updated 10/23/23 @ 12:51 by Ashli Dunlap) Status post total left knee replacement History of total right knee replacement History of esophagogastroduodenoscopy (EGD) Hx of colonoscopy Social History Household Members: Spouse Household Members Other:: , 2 sons Housing: House Are you a primary healthcare management consultant to a significant other at home: No Do you presently have visiting nurse or other home services: Yes Patient Tobacco Use Status: Former Tobacco user Quit Date: 1998 Tobacco use type: Cigarette Years Smoked: 27 e-Cigarette/Vaping Use: Never Used Second Hand Smoke Exposure: No Substance Use Type: Marijuana service: No Current occupational status: retired Current occupation: rt handed Cognitive needs: No Hearing needs: No Vision needs: No Physical Exam Vital Signs: BMI result Body Mass Index 28.7 Extrem Other: inc c/d/i trace effusion 0-125 deg motion Assessment & Plan Assessment & Plan (1) Status post total left knee replacement: Code(s): Z96.652 - Presence of left artificial knee joint Category: Surgical Plan: Doing well May d/c asa continue strengthening, PT and ambulation as tolerated f/u 6 weeks
[2023-10-23 12:43] VITALS: BMI 28.7
== END 2023-10-23 12:53 | disposition home or self-care (01) ==
LOC: HO.HOS 12:38
PROVIDERS: PCP Internal Medicine; Visit Provider Orthopaedic Surgery
DX: Z96.652 Presence of left artificial knee joint (principal)
CPT/HCPCS: 99024

== ENCOUNTER 2023-10-25 07:00 | Outpatient (RCR) | payer OTHER, SELFPAY ==
--- NOTE | 2023-10-05 07:50 | MHC.PT.EP ---
[facility] [place] Office [place] Office [place] Office [address] Chin Juarez [address] [phone] F: [phone] F: [phone] F: [phone] F: [phone] Physical Therapy Plan of Care Date of Evaluation: 10/05/23 Date of Surgery: 09/05/23 Diagnosis: s/p L TKA on September 05, 2023 Assessment: Patient is a 68 year old R handed male who presents with s/s consistent with L TKA on September 05, 2023, knee pain. He does not work but does like to be active around the house and out in the community. Patient past medical history includes b/l knee pain, ETOH, venous insufficiency and neuropathy. Current impairments include pain, balance, ROM, strength, activity tolerance and functional mobility. Functional limitations include decreased ability to walk, stand, negotiate stairs. Patient is motivated with good rehab potential. Skilled PT will address impairments and functional limitations in order to achieve goals. Frequency and Duration: The patient will be seen 2x/week for 4 weeks Short Term Goals: I with HEP - 2 weeks Symmetrical gait with amb and stairs -2 weeks AROM 0-125 - 2 weeks [place] Goals: Strength 4+/5 - 4 weeks LEFS 60/80 - 4 weeks Pain with ADLs 2/10 - 4 weeks Treatment Plan: Modalities to reduce pain, spasms and effusion. Manual therapy to restore motion and function. Therapeutic exercise to improve strength and flexibility. Neuromuscular re-education for posture and balance. Therapeutic activities to return to functional activities of daily living. Electronically signed by: Zacarias Mijares, PT Please sign and return to therapist. Thank you for your referral.
--- NOTE | 2024-04-10 10:12 | MHC.PT.DC ---
[facility] [place] Office [place] Office [place] Office [address] Chin Juarez [address] [phone] F: [phone] F: [phone] F: [phone] F: [phone] Physical Therapy Discharge Report Diagnosis: s/p L TKA on September 05, 2023 Date of Surgery: 09/05/23 Date of Evaluation: 10/05/23 Date of Discharge: 11/12/23 Treatments to Date: 5 Cancellations to Date: No Shows to Date: Discharge Status: Achieved Goals Independent with HEP Discharge Summary: 10/25/23: LEFS 60/80, AROM 0-130. strength 4+/5 grossly. Pain 2/10 max. Symmetrical gait. all goals met and appropriate to d/c to HEP at this time. 10/20/23: pt with reduced swelling and pain. functional gains continue and mechanics are improving. he is ready to transition to 1x/week 10/18/23: pt progressing very well. skilled PT is improving strength, balance and function. min swelling. some HS discomfort over weekend lessened by PT today. 10/13/23: pt progressing well. ROM and strength progressing. added balance today with no adverse reactions. we will continue to progress as tolerated 10/10/23: pt progressing handsomely. no adverse reactions from above program. ROM at good spot. to focus strength and balance. Patient is a 68 year old R handed male who presents with s/s consistent with L TKA on September 05, 2023, knee pain. He does not work but does like to be active around the house and out in the community. Patient past medical history includes b/l knee pain, ETOH, venous insufficiency and neuropathy. Current impairments include pain, balance, ROM, strength, activity tolerance and functional mobility. Functional limitations include decreased ability to walk, stand, negotiate stairs. Patient is motivated with good rehab potential. Skilled PT will address impairments and functional limitations in order to achieve goals. Electronically signed by: Zacarias Mijares, PT Please sign and return to therapist. Thank you for your referral.
== END 2024-04-10 10:12 | disposition home or self-care (01) ==
LOC: HO.PTCHIC 07:00
PROVIDERS: PCP Internal Medicine; Visit Provider Physician Assistant
DX: Z96.652 Presence of left artificial knee joint (principal)
CPT/HCPCS: 97110; 97163

== ENCOUNTER 2023-12-04 11:07 | Outpatient (AMB) | payer OTHER, SELFPAY ==
--- NOTE | 2023-12-04 11:12 | MHC.OFFVIS ---
Intake Visit Reasons: PO 6wk LT TKA 09/05/23 NE-follow up Intake Note: Parveen is a 68 year old male who presents today for a post operative appointment s/p left TKA on 09/05/23 NE. Patient reports that he is doing well he continues to have swelling of the knee. Fatigue with prolonged walking Allergies venlafaxine [From EFFEXOR] Adverse Reaction (Intermediate, Verified 12/04/23 11:17) itching/rash HPI HPI PO 6wk LT TKA 09/05/23 NE-follow up: Details: Pareven is a 68 year old male who presents today for a post operative appointment s/p left TKA on 09/05/23 NE. Patient reports that he is doing well he continues to have swelling of the knee. Fatigue with prolonged walking PFSH Medical History Osteoarthritis of left knee Osteoarthritis of right knee Family history of malignant hyperthermia Esophageal stricture COVID-19 vaccine series completed Venous insufficiency of both lower extremities H/O ETOH abuse Hyperlipidemia Hypertension Neuropathy Arthritis Peripheral neuropathy Surgical History (Updated 10/23/23 @ 12:51 by Ashli Dunlap) Status post total left knee replacement History of total right knee replacement History of esophagogastroduodenoscopy (EGD) Hx of colonoscopy Social History Household Members: Spouse Household Members Other:: , 2 sons Housing: House Are you a primary health and social care teacher to a significant other at home: No Do you presently have visiting nurse or other home services: Yes Patient Tobacco Use Status: Former Tobacco user Tobacco use type: Cigarette Years Smoked: 27 e-Cigarette/Vaping Use: Never Used Second Hand Smoke Exposure: No Substance Use Type: Marijuana service: No Current occupational status: retired Current occupation: rt handed Cognitive needs: No Hearing needs: No Vision needs: No Physical Exam Extrem Other: 0-125 inc c/d/i no gait antalgia Stable to v/v stress ext mechanism intact Assessment & Plan Assessment & Plan (1) Status post total left knee replacement: Code(s): Z96.652 - Presence of left artificial knee joint Category: Surgical Plan: Doing well F/u 9 months COnt strengthening and activity as tolerated Coding Level of Care Code Global (85441) Diagnoses Status post total left knee replacement Z96.652
== END 2023-12-04 15:59 | disposition home or self-care (01) ==
PROVIDERS: PCP Internal Medicine; Visit Provider Orthopaedic Surgery
DX: Z96.652 Presence of left artificial knee joint (principal)
CPT/HCPCS: 99024

== ENCOUNTER → 2023-12-04 11:07 | Outpatient (BNVA) | payer OTHER, SELFPAY | PROVIDERS: PCP Internal Medicine; Visit Provider Orthopaedic Surgery ==

== ENCOUNTER 2024-05-16 07:01 | Outpatient (REF) | payer OTHER, SELFPAY ==
[2024-05-16 10:06] LABS: MANUAL DIFF FLAG NO
[2024-05-16 10:25] LABS: Basophils Absolute Auto 0.1 X10*3/uL (0.0-0.2); Eosinophils Absolute Auto 0.4 X10*3/uL (0.0-0.4); Eosinophils Percent Auto 4.4 % (0-4); Hematocrit 45.2 % (42.0-52.0); Hemoglobin 14.6 g/dl (14.0-18.0); Imm Gran Abs Auto 0.04 X10*3/uL (0.00-0.03); Imm Gran Pct Auto 0.5 % (0.0-0.4); Lymphocytes Absolute Auto 1.9 X10*3/uL (1.2-4.9); Lymphocytes Percent Auto 23.2 % (20-40); Mean Corpuscular HGB Conc 32.3 g/dl (31.0-36.0); Mean Corpuscular Hemoglobin 27.3 pg (27.0-33.0); Mean Corpuscular Volume 84.5 fL (80.0-98.0); Mean Platelet Volume 9.7 fL (9.4-12.4); Monocytes Absolute Auto 0.6 X10*3/uL (0.1-1.2); Monocytes Percent Auto 7.1 % (2-11); Neutrophils Absolute Auto 5.2 x10*3/uL (2.0-8.3); Neutrophils Percent Auto 63.8 % (45-73); Platelet Count 348 X10*3/uL (160-400); Red Blood Count 5.35 X10*6/uL (4.60-5.80); Red Cell Distribution Width 13.2 % (11.0-16.0); White Blood Count 8.2 X10*3/uL (4.8-10.8)
[2024-05-16 10:49] LABS: Alanine Aminotransferase 30 U/L (0-40); Albumin Level 4.7 g/dL (3.5-5.0); Alkaline Phosphatase 98 U/L (39-117); Anion Gap 12 (12-20); Aspartate Amino Transferase 34 U/L (5-37); Bilirubin Total 0.8 mg/dL (0.0-1.0); Blood Urea Nitrogen 7 mg/dL (9-16); Calcium 9.2 mg/dL (8.4-10.2); Carbon Dioxide 30 mmol/L (22-29); Chloride 102 mmol/L (96-108); Cholesterol 178 mg/dL (<200); Estimated Glomerular Filt Rate > 60; Glucose Fasting 127 mg/dL (60-99); HDL Cholesterol 57 mg/dL (>40); LDL Cholesterol Calculated 101 mg/dL (<100); Potassium 4.6 mmol/L (3.3-5.1); Sodium 139 mmol/L (135-145); Total Protein 7.7 g/dL (6.5-8.0); Triglycerides 103 mg/dL (<150)
[2024-05-16 10:53] LABS: TSH reflex Free T4 1.16 uIU/mL (0.32-4.0)
[2024-05-16 10:55] LABS: PSA,Total (Free>4and<10) 0.36 ng/mL (0.00-4.00)
[2024-05-16 14:25] LABS: Estimated Average Glucose 105 mg/dL; Hemoglobin A1C 127.1282 umol/L; Hemoglobin A1c % 5.3 % (<6.0); Total Hemoglobin (HGBA1C) 3705.7421 umol/L
== END 2024-05-16 07:02 | disposition home or self-care (01) ==
LOC: HO.HMGCLDS 07:01
PROVIDERS: PCP Internal Medicine; Visit Provider Internal Medicine
DX: R73.9 Hyperglycemia, unspecified (principal); D64.9 Anemia, unspecified; I10 Essential (primary) hypertension; E78.5 Hyperlipidemia, unspecified; Z12.5 Encounter for screening for malignant neoplasm of prostate
CPT/HCPCS: 36415; 80053; 80061; 83036; 84153; 84443; 85025

== ENCOUNTER 2024-05-22 08:21 | Outpatient (AMB) | payer OTHER, SELFPAY ==
[2024-05-22 08:27] VITALS: BP 128/86; PULSE 67; O2SAT 99; BMI 30.6
--- NOTE | 2024-05-22 08:27 | MHC.PC.OV ---
Vital Signs 05/22/24 08:27 Height 6 ft 3 in Weight 245 lb BMI 30.6 BP 128/86 Blood Pressure Location Lt brachial Position Sitting Pulse 67 Pulse Source Pulse Oximeter Pulse Oximetry (%) 99 Oxygen Delivery Method Room Air Intake Visit Reasons: Annual PE Intake Note: Pt is here today for PE. Allergies venlafaxine [From EFFEXOR] Adverse Reaction (Intermediate, Verified 05/22/24 08:28) itching/rash Medication List - Last Reconciled 05/22/24 by Radha Aguayo MD acetaminophen 650 mg (2 x 325 mg) PO Q6H PRN 30 days amlodipine 10 mg PO DAILY aspirin 325 mg PO BID 42 days atenolol 50 mg PO DAILY atorvastatin 20 mg PO BEDTIME celecoxib 200 mg PO BID elderberry fruit and flower 460-115 mg 1 cap PO DAILY gabapentin 800 mg PO TID lisinopril 40 mg PO DAILY omeprazole 20 mg PO DAILY@0630 tramadol 50 mg PO BID vitamin B complex 1 tab PO DAILY walker Folding front wheeled walker Tobacco use date assessed: 05/22/24 Fall risk assessment: No Falls in past year Last assessed Fall Risk: 05/22/24 Dental Screening Dental Screen Date: 05/22/24 Did you have a dental visit in the last 12 months?: Yes Did you have a dental problem in the last 6 months where you did not have access to dental care?: No Was dental information given to patient?: Patient has dentist HPI Annual PE HPI Details PATIENT PRESENTS FOR PHYSICAL PFSH Medical History (Updated 05/22/24 @ 08:52 by Radha Aguayo MD) Osteoarthritis of left knee Osteoarthritis of right knee Esophageal stricture COVID-19 vaccine series completed Venous insufficiency of both lower extremities H/O ETOH abuse Hyperlipidemia Hypertension Neuropathy Arthritis Peripheral neuropathy Surgical History Status post total left knee replacement History of total right knee replacement History of esophagogastroduodenoscopy (EGD) Hx of colonoscopy Social History Household Members: Spouse Household Members Other:: , 2 sons Housing: House Are you a primary resident care assistant to a significant other at home: No Do you presently have visiting nurse or other home services: Yes Patient Tobacco Use Status: Former Tobacco user Tobacco use type: Cigarette Years Smoked: 27 e-Cigarette/Vaping Use: Never Used Second Hand Smoke Exposure: No Substance Use Type: Marijuana service: No Current occupational status: retired Current occupation: rt handed Cognitive needs: No Hearing needs: No Vision needs: No Questionnaire PHQ-9 Over the last 2 weeks, how often have you been bothered by any of the following problems? 1. Little interest or pleasure in doing things: not at all 2. Feeling down, depressed, or hopeless: several days 3. Trouble falling or staying asleep, or sleeping too much: several days 4. Feeling tired or having little energy: several days 5. Poor appetite or overeating: not at all 6. Feeling bad about yourself - or that you are a failure or have let yourself or your family down: not at all 7. Trouble concentrating on things, such as reading the newspaper or watching television: not at all 8. Moving or speaking so slowly that other people could have noticed. Or the opposite - being so fidgety or restless that you have been moving around a lot more than usual: not at all 9. Thoughts that you would be better off or of hurting yourself in some way: not at all Total score: 3 Depression Screening Interpretation: Negative Depression Screening Done: Yes 53711 - PHQ-9 Billing: Yes Source: Developed by Drs. Buzz Peoples, Amisha Bennett, Osmar Patel and colleagues, with an educational krystle from [employer]. Thrive Questionnaire Date Thrive assessed: 05/22/24 I am a: Patient What is your living situation today?: I have a steady place to live Within the past 12 months, did the food you bought not last and you didn't have the money to get more?: Never true Within the past 12 months, did you worry whether your food would run out before you got money to buy more?: Never true Do you have trouble paying for medicines?: No Do you have trouble getting transportation to medical appointments?: No Do you have trouble paying your heating and electricity bill?: No Do you have trouble taking care of your child, family member or friend?: No Do you have trouble with day-to-day activities such as bathing, preparing meals, shopping, managing finances, etc.?: No Are you currently unemployed and looking for a job?: No Are you interested in more education?: No Please select the resources that you would like help with: None Currently or been in a relationship where the following occur: No concerns reported THRIVE Score: 0 AUDIT C Alcohol Use Questionnaire (AUDIT-C) 1. How often do you have a drink containing alcohol?: Never 3. How often do you have six or more drinks on one occasion?: Never Total Score: 0 DAVID-7 AMB Questionnaire DAVID-7 Date DAVID - 7 assessed: 05/22/24 Feeling nervous, anxious, or on edge: 0 = Not at all Not being able to stop or control worryin = Not at all Worrying too much about different things: 0 = Not at all Trouble relaxin = Not at all Being so restless that it is hard to sit still: 0 = Not at all Becoming easily annoyed or irritable: 0 = Not at all Feeling afraid as if something awful might happen: 0 = Not at all Total DAVID-7 score (0-4 normal; 5-9 mild; 10-14 moderate; 15-21 severe): 0 Source: Developed by Drs. Buzz Peoples, Amisha Bennett, Osmar Patel and colleagues, with an educational krystle from [employer]. DAVID-7 Assessment Billing DAVID-7 Assessment Tool: DAVID-7 Assessment 64286 Review of Systems Const All systems reviewed & are unremarkable except as noted in HPI and below Eyes Reports no additional complaints ENT Reports no additional complaints Card Reports no additional complaints Resp Reports no additional complaints GI Reports no additional complaints Reports no additional complaints Musc Reports no additional complaints Physical exam (Primary Care) Vital Signs: Last Vital Signs Pulse 67 05/22/24 08:27 BP 128/86 05/22/24 08:27 Pulse Ox 99 05/22/24 08:27 Oxygen Delivery Method Room Air 05/22/24 08:27 BMI result Body Mass Index 30.6 Tobacco/Smoking Status: Tobacco use Status Tobacco use date assessed 05/22/24 05/22/24 08:32 Patient Tobacco Use Status Former Tobacco user 05/22/24 08:32 Tobacco use type Cigarette 05/22/24 08:32 e-Cigarette/Vaping Use Never Used 05/22/24 08:32 PHQ-9: PHQ-9 Score PHQ-9: Total score 3 05/22/24 08:32 Depression Screening Interpretation: Negative Thrive Assessment: Date of Thrive Assessment Date Thrive assessed 05/22/24 05/22/24 08:32 Currently or been in a relationship where the following occur: No concerns reported Const General: no acute distress [facility] General nose exam: Normal external nose present Throat: Yes posterior oropharynx normal Eyes General: appearance normal, both eyes and all related structures Resp Effort & Inspection: normal respiratory effort Auscultation: clear to auscultation bilaterally Cardio Rhythm: regular rhythm Heart sounds: S1 normal heart sound present and S2 normal heart sound present GI Inspection: Yes normal to inspection Palpation (GI): Soft to palpation Percussion: Yes normal to percussion Auscultation: normal bowel sounds Coding Level of Care Code Est Pt Prev Care >65y(49894) Diagnoses Annual physical exam Z00.00 Neuropathy G62.9 Hypertension I10 Hyperlipidemia E78.5 Hyperglycemia R73.9 Additional Codes DAVID-7 Assessment Billing - DAVID-7 Assessment Tool: DAVID-7 Assessment 42962 ([id number]) PHQ-9 - 72495 - PHQ-9 Billing: Yes ([id number]) Assessment & Plan Assessment & Plan (1) Annual physical exam: Code(s): Z00.00 - Encounter for general adult medical examination without abnormal findings Category: Medical Plan: Well-balanced diet regular physical activity discussed with the patient. He is up-to-date with colonoscopy (2) Neuropathy: Comment: from ETOH,controlled on tramadol and gabapentin followed by Dr. Son Code(s): G62.9 - Polyneuropathy, unspecified Category: Medical Plan: Follow-up with neurology (3) Hypertension: Code(s): I10 - Essential (primary) hypertension Category: Medical Plan: Continue current medications (4) Hyperlipidemia: Code(s): E78.5 - Hyperlipidemia, unspecified Category: Medical Plan: Continue statin (5) Hyperglycemia: Code(s): R73.9 - Hyperglycemia, unspecified Category: Medical Plan: A1C is 5.3, cont ADA and exercise Orders: Orders Comprehensive [place]. Panel Fast 1 Year E78.5 - Hyperlipidemia, unspecified, I10 - Essential (primary) hypertension, R73.9 - Hyperglycemia, unspecified, Z00.00 - Encounter for general adult medical examination without abnormal findings Complete Blood Count Auto Diff 1 Year E78.5 - Hyperlipidemia, unspecified, I10 - Essential (primary) hypertension, R73.9 - Hyperglycemia, unspecified, Z00.00 - Encounter for general adult medical examination without abnormal findings Lipid Panel 1 Year E78.5 - Hyperlipidemia, unspecified, I10 - Essential (primary) hypertension, R73.9 - Hyperglycemia, unspecified, Z00.00 - Encounter for general adult medical examination without abnormal findings PSA,Total (Free>4and<10) 1 Year E78.5 - Hyperlipidemia, unspecified, I10 - Essential (primary) hypertension, R73.9 - Hyperglycemia, unspecified, Z00.00 - Encounter for general adult medical examination without abnormal findings Vitamin B12 and Folate 1 Year E78.5 - Hyperlipidemia, unspecified, I10 - Essential (primary) hypertension, R73.9 - Hyperglycemia, unspecified, Z00.00 - Encounter for general adult medical examination without abnormal findings Vitamin D 25-OH Total 1 Year E78.5 - Hyperlipidemia, unspecified, I10 - Essential (primary) hypertension, R73.9 - Hyperglycemia, unspecified, Z00.00 - Encounter for general adult medical examination without abnormal findings Medications: Refilled atenolol 50 mg PO DAILY 90 tabs 3RF atorvastatin 20 mg PO BEDTIME 90 tabs 3RF amlodipine 10 mg PO DAILY 90 tabs 3RF lisinopril 40 mg PO DAILY 90 tabs 3RF
== END 2024-05-22 08:59 | disposition home or self-care (01) ==
PROVIDERS: PCP Internal Medicine; Visit Provider Internal Medicine
DX: Z00.00 Encounter for general adult medical examination without abnormal findings (principal); G62.9 Polyneuropathy, unspecified; I10 Essential (primary) hypertension; E78.5 Hyperlipidemia, unspecified; R73.9 Hyperglycemia, unspecified

== ENCOUNTER → 2024-05-22 08:21 | Outpatient (BNVA) | payer OTHER, SELFPAY | PROVIDERS: PCP Internal Medicine; Visit Provider Internal Medicine | DX: Z00.00 Encounter for general adult medical examination without abnormal findings (principal); G62.9 Polyneuropathy, unspecified; I10 Essential (primary) hypertension; E78.5 Hyperlipidemia, unspecified; R73.9 Hyperglycemia, unspecified; Z79.899 Other long term (current) drug therapy | CPT/HCPCS: 96127 ==

== ENCOUNTER 2024-09-23 07:32 | Outpatient (REF) | payer OTHER, SELFPAY ==
--- NOTE | ~2024-09-23 | XR_ITS ---
EXAMINATION: XR KNEE, LEFT CLINICAL INFORMATION: Z98.890 - Other specified postprocedural states COMPARISON: 06/01/2023. TECHNIQUE: AP view bilateral knees standing, lateral and patellofemoral views left knee. FINDINGS: Right Knee: Total right knee arthroplasty. Femoral and tibial components intact, well seated, in anatomic alignment. Normal soft tissues. Left Knee: Total left knee arthroplasty. Tibial component appears intact, well seated, in anatomic alignment. Subtle lucency on the lateral projection abutting the posterior and anterior femoral prosthesis. There has been patellar resurfacing. There is a prominent joint effusion. There are vague calcific densities in the region of Hoffa's fat pad. Early vascular calcifications in the soft tissues. XR/XR knee LT 3V IMPRESSION: 1. Findings which may suggest very early loosening of the femoral component, left knee. This is not definitive. 2. Left knee joint effusion. Faint calcific densities in the region of Hoffa's fat pad. Consider particle disease. Electronically signed by: Mauricio Anderson MD 09/23/2024 04:54 PM EDT
== END 2024-09-23 07:33 | disposition home or self-care (01) ==
LOC: HO.HOSX 07:32
PROVIDERS: Visit Provider Orthopaedic Surgery
DX: M25.561 Pain in right knee (principal)
CPT/HCPCS: 73562

== ENCOUNTER 2024-09-23 08:19 | Outpatient (AMB) | payer OTHER, SELFPAY ==
[2024-09-23 08:31] VITALS: BMI 30.6
--- NOTE | 2024-09-23 08:31 | MHC.OFFVIS ---
Vital Signs 09/23/24 08:31 Height 6 ft 3 in Weight 245 lb BMI 30.6 Intake Visit Reasons: O/V S/P LT TKA 09/05/23 NE-follow up Intake Note: Parveen is a 68 year old male who presents today for a post operative appointment s/p left TKA on 09/05/23 NE. Patient reports that he is doing well but has some continued pain in the left knee. Pain is felt with activity and improves with rest. He is not currently taking anything for his pain. Allergies venlafaxine [From EFFEXOR] Adverse Reaction (Intermediate, Verified 09/23/24 08:31) itching/rash HPI HPI O/V S/P LT TKA 09/05/23 NE-follow up: Details: Parveen is a 68 year old male who presents today for a post operative appointment s/p left TKA on 09/05/23 NE. Patient reports that he is doing well but has some continued pain in the left knee. Pain is felt with activity and improves with rest. He is not currently taking anything for his pain. He denies fever and chills. Is active and not having any new or significant problems with the knees. [facility] Medical History (Updated 05/22/24 @ 08:52 by Radha Aguayo MD) Osteoarthritis of left knee Osteoarthritis of right knee Esophageal stricture COVID-19 vaccine series completed Venous insufficiency of both lower extremities H/O ETOH abuse Hyperlipidemia Hypertension Neuropathy Arthritis Peripheral neuropathy Surgical History (Updated 09/23/24 @ 09:10 by Edy Walton MD) Status post total left knee replacement History of total right knee replacement History of esophagogastroduodenoscopy (EGD) Hx of colonoscopy Social History Household Members: Spouse Household Members Other:: , 2 sons Housing: House Are you a primary manager intensive care unit to a significant other at home: No Do you presently have visiting nurse or other home services: Yes Patient Tobacco Use Status: Former Tobacco user Tobacco use type: Cigarette Years Smoked: 27 e-Cigarette/Vaping Use: Never Used Second Hand Smoke Exposure: No Substance Use Type: Marijuana service: No Current occupational status: retired Current occupation: rt handed Cognitive needs: No Hearing needs: No Vision needs: No Physical Exam Vital Signs: BMI result Body Mass Index 30.6 Extrem Other: 0-130 bilaterally Right knee with partial wuad tear but no affecting strength or motion Inc c/d/i bilaterally No effusion Results Reviewed Results Reviewed: I personally reviewed relevant radiographs. Bilateral total knee arthroplasty in expected post operative position with no hardware complications or evidence of loosening Assessment & Plan Assessment & Plan (1) Status post total bilateral knee replacement: Code(s): Z96.653 - Presence of artificial knee joint, bilateral Category: Surgical Plan: Parveen is doing well. He has intermittent pain that is non specific and not worrisome. May f/u n 2 years or as needed. Orders: Orders XR knee RT 1V Today M25.569 - Pain in unspecified knee Coding Level of Care Code Est Pt Level 3 (41658) Diagnoses Status post total bilateral knee replacement Z96.653
== END 2024-09-23 09:12 | disposition home or self-care (01) ==
LOC: HO.HOS 08:20
PROVIDERS: PCP Internal Medicine; Visit Provider Orthopaedic Surgery
DX: Z47.89 Encounter for other orthopedic aftercare (principal); Z96.653 Presence of artificial knee joint, bilateral
CPT/HCPCS: 99212

== ENCOUNTER → 2024-09-23 08:22 | Outpatient (BNV) | payer OTHER, SELFPAY | PROVIDERS: Visit Provider Radiology Diagnostic Radiology | DX: M25.462 Effusion, left knee (principal); M79.4 Hypertrophy of (infrapatellar) fat pad | CPT/HCPCS: 73562 ==

== ENCOUNTER 2025-02-27 08:21 | Outpatient (AMB) | payer OTHER, SELFPAY ==
--- NOTE | 2025-02-27 08:26 | MHC.OFFVIS ---
Vital Signs 02/27/25 08:26 Height 6 ft 3 in Intake Visit Reasons: 3 Month F/U Allergies venlafaxine (From EFFEXOR) Adverse Reaction (Intermediate, Verified 02/27/25 08:31) itching/rash Medication List - Last Reconciled 02/27/25 by Amelia Barragan CNP acetaminophen 650 mg (2 x 325 mg) PO Q6H PRN 30 days amlodipine 10 mg PO DAILY aspirin 325 mg PO BID 42 days atenolol 50 mg PO DAILY atorvastatin 20 mg PO BEDTIME celecoxib 200 mg PO BID elderberry fruit and flower 460-115 mg 1 cap PO DAILY gabapentin 800 mg PO TID 30 days lisinopril 40 mg PO DAILY omeprazole 20 mg PO DAILY@0630 tramadol 50 mg PO BID 30 days vitamin B complex 1 tab PO DAILY walker Folding front wheeled walker HPI Comments Details: 69-year-old man with h/o alcohol abuse, anxiety, gout, HTN, arthritis, and peripheral neuropathy associated with neuropathic pain. He was doing okay.?Pain was still there. He was staying busy, building a chicken coop for his granddaughter and working in his garden. Tramadol helped with pain and helped him to stay active. He was sometimes taking an additional dose of tramadol in the afternoon. He ran out of tramadol early this month, about a day ago and pharmacy would not fill medication until it was due tomorrow. He was asking if tramadol dose could be increased. Sleep was not so good. [facility] Medical History (Updated 02/27/25 @ 08:29 by Amelia Barragan CNP) Osteoarthritis of left knee Osteoarthritis of right knee Esophageal stricture COVID-19 vaccine series completed Venous insufficiency of both lower extremities H/O ETOH abuse Hyperlipidemia Hypertension Neuropathy Arthritis Peripheral neuropathy Surgical History (Updated 09/23/24 @ 09:10 by Edy Walton MD) Status post total left knee replacement History of total right knee replacement History of esophagogastroduodenoscopy (EGD) Hx of colonoscopy Social History Household Members: Spouse Household Members Other:: , 2 sons Housing: House Are you a primary care navigator to a significant other at home: No Do you presently have visiting nurse or other home services: Yes Patient Tobacco Use Status: Former Tobacco user Tobacco use type: Cigarette Years Smoked: 27 e-Cigarette/Vaping Use: Never Used Second Hand Smoke Exposure: No Substance Use Type: Marijuana service: No Current occupational status: retired Current occupation: rt handed Cognitive needs: No Hearing needs: No Vision needs: No Review of Systems Const Denies chills, Denies daytime sleepiness, Reports difficulty sleeping, Denies fatigue, Denies fever(s), Denies frequent falls, Denies headache(s), Denies increased appetite, Denies poor appetite, Denies snoring, Denies weakness, Denies weight gain and Denies weight loss Eyes Denies loss of vision ENT Denies vertigo, Denies dizziness and Denies headache(s) Card Denies chest pain at rest, Denies chest pain with activity, Denies syncope, Denies leg edema and Denies palpitations Resp Denies snoring GI Denies constipation, Denies heartburn, Denies diarrhea and Denies nausea Denies urinary frequency, Denies urinary incontinence and Denies urinary urgency Musc Reports abnormal gait (balance difficulty), Reports numbness and Reports tingling Skin/Breast Denies dry skin and Denies rash Neuro Reports abnormal gait (balance difficulty), Denies vertigo, Denies dizziness, Denies syncope, Denies frequent falls, Denies headache(s), Denies lack of coordination, Denies loss of vision, Denies memory loss, Reports numbness, Denies restless legs, Denies seizure-like activity, Reports tingling, Denies paresthesias, Denies tremor(s) and Denies weakness Psych Denies anxiety, Denies depression, Denies auditory hallucinations, Denies memory loss, Denies visual hallucinations and Denies suicidal ideation Endo Denies fatigue and Denies palpitations Physical Exam Const Other: General Appearance:? normal, in no acute distress. Skin:? no rashes, no significant birthmarks. Heart:? S1, S2 normal, no murmurs. Lungs:? clear anteriorly and posteriorly. Extremities:? no edema. Psych:? alert, oriented, cognitive function intact, cooperative with exam. Neuro Other: Mental Status:?Normal attention, orientation, memory and affect.? Cranial Nerves:?Pupils are equal, round and reactive to light. External occular muscles are intact. Visual morin are full. Face is symmetrical. Facial sensations are normal. Tongue is midline. Palate elevates symmetrically. Shoulder shrugging is normal. Hearing to bedside conversation is normal. Sensory Exam:?....? Coordination:?No ataxia,?no titubation.? Gait Exam: Within normal limits. Extrapyramidal System:?No tremor, rigidity with normal facial expressions.? Pronator Drift:?Not present.? Involuntary Movements:?Coarse tremors of outstretched hands, L > R. Speech:?Normal.? 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 NCV/EMG LE 03/05/14 MODERATE TO SEVERE CHRONIC AXONAL SENSORY AND MOTOR PERIPHERAL NEUROPATHY. Assessment & Plan Assessment & Plan (1) Neuropathic pain: Code(s): M79.2 - Neuralgia and neuritis, unspecified Category: Medical Plan: Continue gabapentin 800mg 1 tablet three times a day. Continue tramadol 50mg 1 tablet twice a day. Tramadol dose would not be increased, take medication as prescribed. Discussed option for referral to pain management, declining at this time. 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
--- OUTSIDE RECORDS SUMMARY | 2025-02-27 08:56 | XMS_ITS | Patient Health Record ---
Author Organization [facility] Address [address] [place] [address] Care Team Providers Care Paving Machine Operator Name Role Phone Sujey Yeh Primary Care Provid er Unavailable Buzz Bocanegra Unavailable [phone] Allergies Allergen (clinical drug ingredient) Drug/Non Drug Allergy documented on EMR Reaction Allergy Type Onset Date Status Effexor Unknown Drug Allergy Active Reason For Referral No Information Medications Medication SIG (Take, Route, Fr equency, Duration) Notes Start Date End Date Status traMADol HCl Active Mometasone Furoate A ctive Atorvastatin Calcium Active Omeprazole 40 MG Orally Act yang Gabapentin Active Omeprazole 20 MG 1 tablet Orally Once a day for 30 Active Sildenafil Citrate A ctive Vitamin B12 Active Atenolol 50 MG 1 tablet Orally Once a day Active Lisinopril 40mg Acti ve amLODIPine Besylate Active Social History Alcohol Screen Question Answer Notes Did you have a drink contain ing alcohol in the past year? Yes How often did you have a dri nk containing alcohol in the past year? 4 or more times a week (4 points) How many drinks did you have on a typical day when you were drinking in the past year? 1 or 2 drinks (0 point) How often did you have 6 or more drinks on one occasion in the past year? Never (0 point) Points 4 Interpretation Positive Section Notes: Nonsmoker > 10 yrs; drinks 6 beers QD Nonsmoker > 10 yrs; 1-2 glas ses of wine QD and occ. drinks beers Problems Problem Type SNOMED Code ICD Code Onset Dates Problem Status W/U Status Risk Notes Problem [id number] Gastro-esophagea l reflux disease without esophagitis (K21.9) Active confirmed Problem 617739681 Encounter for screening for malignant neoplasm of colon (Z12.11) Active confirmed Problem 17358257 Hiatal hernia (K44.9) Active confirmed Plan Of Treatment Future Test Test Name Order Date UPPER GI ENDOSCOPY [place] DILATION OF ESOPH 05/16/2013 COLONOSCOPY 11/16/2017 Insurance Providers Payer Name Payer Address Payer Phone Subscriber Number Group Number Insured Name Patient Relationship to Insured Coverage Start Date Coverage End Date [employer] [address] [place] [phone] [id number] ELDA PATHAK Self - patient is the insured Medical (General) History Medical History History ICD Code EGD with removal of foreign body on 02-25-13--food bolus-had a distal esophageal stricture and esophagitis; F/U EGD 05/2013 with dilation of the stricture, hiatal hernia, no esophagitis nor Connelly's esophagus Gout Lower extremity edema Hypertension Denies [place],DM,CVA,Lung disease,renal dise ase Surgical History Surgery Date(Month/Year) Cataracts bilateral--2018 Vein surgery-
== END 2025-02-27 08:45 | disposition home or self-care (01) ==
LOC: HO.HSM 08:22
PROVIDERS: PCP Internal Medicine; Referring Provider Internal Medicine; Visit Provider Registered Nurse
DX: G62.1 Alcoholic polyneuropathy (principal); M79.2 Neuralgia and neuritis, unspecified
CPT/HCPCS: 99214

== ENCOUNTER 2025-05-27 06:59 | Outpatient (REF) | payer OTHER, SELFPAY ==
--- OUTSIDE RECORDS SUMMARY | 2025-05-27 07:02 | XMS_ITS | Encounter Summary ---
Author Organization [facility] Address [address] [place] [address] Care Team Providers Care Insulation Cutter Name Role Phone Sujey Kebede DO Primary Care Pro vider Unavailable Osiel Archibald MD Primary Care Provider [phone] Buzz Harrington DO Primary Care Provider [place] Osiel Summers MD Primary Care Provider Buzz Harrington DO Primary Care Provider [place] Osiel Summers MD Primary Care Provider [phone] [facility] Primary [facility] Reason for Visit * Reason Comments E-prescribe Rx Request Encounter Details Date Type Department Care Team Description 10/24/2018 Refill Adult Medicine [address] [id number] Lior Fofana PA-C [address] [place] [address] [id number] E-prescribe Rx Request Social History Tobacco Use Types Packs/Day Years Used Date Smoking Tobacco: Former Smokeless Tobacco: Never Comments:quit 1997 Alcohol Use Standard Drinks/Week Comments Yes 2.5 (1 standard drin k = 0.6 oz pure alcohol) cut down to 3 drinks a week as of 01/31/2014. Sex Assigned at Date Recorded Not on file documented as of this encounter Miscellaneous Notes * Telephone Encounter - Allegra Ma M.A. - 10/24/2018 3:58 PM EDT Lab Results Component Value Date NA 138 10/11/2018 K 4.3 10/11/2018 CO2 28 10/11/2018 CL 103 10/11/2018 BUN 10 10/11/2018 CREAT 0.90 10/11/2018 GLU 111 10/11/2018 CA 8.9 10/11/2018 GFR > 60 10/11/2018 * Telephone Encounter - Carrie Palma - 10/24/2018 3:11 PM EDT Patient would like script to be: E-PRESCRIBED/FAXED TO PHARMACY WHEN WAS THE PATIENT'S LAST APPOINTMENT IN ADULT MEDICINE? 10/16/2018 WHEN WAS THE LAST TIME THE PATIENT SAW THEIR PCP? Same as above Does patient have an upcoming appointment? Yes 04/09/2019 (THE MEDICATION REQUESTED IS ON THE MED LIST ABOVE) All of the medications requested were on the CURRENT MEDS list Did you check the Pharmacy information above?: YES Patient wants: 90 -day supply Is this a mail order prescription request ? NO If the refill is from a FAXED refill request what is the RX # listed on the fax? N/A Patients current insurance carrier is: Payor: upad / Plan: upad $10/ JOSE / Product Type: OTHER documented in this encounter Plan of Treatment Not on file documented as of this encounter Visit Diagnoses Not on filedocumented in this encounter Care Teams Insulation Cutter Relationship Specialty Start Date End Date Sujey Kebede DO PCP - General Internal Medicine 01/29/16 12/27/20 Osiel Archibald MD [address] [place] [address] 15025 PCP - General Internal Medicine 12/28/20 01/13/21 Buzz Harrington, DO [address] [place] [address] 64307 PCP - General Internal Medicine 01/14/21 01/14/21 Osiel Archibald MD [address] [place] [address] 77620 PCP - General Internal Medicine 01/15/21 02/11/21 Buzz Harrington, DO [address] [place] [address] 54317 PCP - General Internal Medicine 02/12/21 04/06/21 Osiel Archibald MD [address] [place] [address] 73254 PCP - General Internal Medicine 04/07/21 11/20/22 [facility], [address] [address] PCP - General Internal Medicine 11/21/22 documented as of this encounter
--- OUTSIDE RECORDS SUMMARY | 2025-05-27 07:02 | XMS_ITS | Clinical Summary ---
Author Organization [facility] Address [address] [place] [address] Care Team Providers Care Beef Grinder Name Role Phone Community, Pcp Primary Care Provider Unavailabl e Allergies Active Allergy Reactions Severity Noted Date Comments Venlafaxine Rash/Dermatitis 01/19/2016 Medications Medication Sig Dispensed Refills Start Date End Date Status Cyanocobalamin (VITAMIN B-12 CR OR) Take by mouth daily. 0 Active gabapentin (NEURONTIN) 800 MG tablet Take 1 Tab by mouth 3 times daily. 90 Tab 5 02/02/2017 Active mometasone (ELOCON) 0.1 % cream Apply sparingly twice a day to affected areas as needed 45 g 3 07/26/2019 Active meloxicam (Mobic) 15 MG tablet Take 1 tablet by mouth daily for 360 days. 30 tablet 11 03/11/2021 Active lisinopril (PRINIVIL,ZESTRIL) 40 MG tablet Take 1 tablet by mouth daily. 90 tablet 1 07/14/2021 Active atorvastatin (LIPITOR) 20 MG tablet Take 1 tablet by mouth daily. 90 tablet 1 07/14/2021 Active omeprazole (PRILOSEC) 20 MG capsule Take 1 capsule by mouth daily. 90 capsule 07/30/2021 Active atenolol (TENORMIN) 50 MG tablet Take 1 tablet by mouth daily. 90 tablet 07/30/2021 Active amlodipine (NORVASC) 5 MG tablet Take 1.5 Tablets by mouth daily. 135 tablet 1 07/30/2021 Active Active Problems Problem Noted Date DJD (degenerative joint disease) of knee s 03/11/2021 Overview: severe Primary osteoarthritis of both knees History of gout 04/10/2018 Elevated liver function tests 11/21/2016 Elevated fasting glucose 11/21/2016 B12 deficiency 05/09/2016 Hiatal hernia 04/08/2016 Dyslipidemia 01/19/2016 Varicose vein 01/19/2016 Peripheral neuropathy 06/12/2014 Overview: Follows with neurology, tramadol for pain Reflux esophagitis 04/17/2014 Overview: See Dr. Bocanegra, 2012. Stricture and stenosis of esophagus 04/02 Overview: With food impaction 2012. Dysphagia 05/27/2013 Overview: Follows with Dr. Buzz Bocanegra, distal esophageal stricture Osteoarthritis of foot 02/25/2013 Obese 12/13/2010 Erectile dysfunction 11/12/2009 Anxiety 07/22/2008 Depressive disorder 11/06/2006 Essential hypertension, benign 5 Lumbago 05/13/2005 Overview: IMO update Low hemoglobin and low hematocrit Resolved Problems Problem Noted Date Resolved Date Gout 07/22/2008 04/10/2018 Sciatica 05/13/2005 02/27/2013 Immunizations Name Administration Dates Next Due COVID-19 (Moderna) 09/15/2020 COVID-19 (Moderna) PT Reported 10/13/2020 Influenza (> 6 Months) 05/09/2016,06/09/2014, Influenza Vaccine-quadrivalent 4 Years Plus 03/2018,04/03/2017 Influenza vaccine high dose age 65 and over 08/2019,04/09/2019 Pneumoccoccal(Adult) Polysaccharide PPSV23 04/09 Shingrix (Patient reported) 07/15/2019, 9 Tdap 04/23/2009 Family History Medical History Relation Name Comments at 72 Father question heart problem Stroke Mother malignant hyperthermia Son Relation Name Status Comments Father (Age 72) Mother (Age 90) Son Social History Tobacco Use Types Packs/Day Years Used Date Smoking Tobacco: Former Cigarettes 2 1 967 - 1997 Cigars Smokeless Tobacco: Never Alcohol Use Standard Drinks/Week Comments Yes 2.5 (1 standard drink = 0.6 oz p ure alcohol) wine Sex Assigned at Date Recorded Not on file Last Filed Vital Signs Vital Sign Reading Time Taken Comments Blood Pressure 136/86 07/30/2021 9:28 AM EST Pulse 76 07/30/2021 9:28 AM EST Temperature 36.6 C (97.9 F) 07/30/2021 9:28 AM EST Respiratory Rate 14 07/30/2021 9:28 AM EST Oxygen Saturation 98% 03/11/2021 7:54 AM EDT Inhaled Oxygen Concentration - - Weight 106.6 kg (235 lb) 07/30/2021 9:28 AM EST Height 190.5 cm (6' 3 ) 07/30/2021 9:28 AM EST Body Mass Index 29.37 07/30/2021 9:28 AM EST Plan of Treatment Health Maintenance Due Date Last Done Comments COLON CANCER SCREEN WITH STO OL CARD 01/10/2019 01/10/2018, 08/18/2016, 12/25/2013, Additional history exists DTAP/TDAP/TD (2 - Td or Tdap) 04/23/2019 04/23/2009 PNEUMOCOCCAL VACCINE (2 - PCV) 04/09/2020 04/09/2019 BMI CHECK/ADVISE 07/03/2024 11/06/2020, 08/2019, 04/09/2019, Additional history exists Covid-19 Vaccine (2022-2 4 season) 2025 10/13/2020, 09/15/2020 INFLUENZA (#1) 2025 04/03/2020, 01/2019, 04/09/2019, Additional history exists CHOLESTEROL SCREENING 04/06/2026 04/06/2021 , 03/27/2020, 10/11/2018, Additional history exists HEPATITIS C SCREENING Completed 01/06/2014 SHINGLES VACCINE Completed 07/15/2019, 04/18/2019 Insurance Payer Benefit Plan / Group Subscriber ID Effective Dates Phone Address Type CAROL ANN HA $10/20 JOSE [id number] 2016-Lizandro richardson [facility] CLAIMS DEPT [address] BRUNO GARCIA [id number] OTHER Care Teams Beef Grinder Relationship Specialty Start Date End Date Community, Pcp PCP - General Internal Medicine 11/21/22
--- OUTSIDE RECORDS SUMMARY | 2025-05-27 07:02 | XMS_ITS | Encounter Summary ---
Author Organization [facility] Address [address] [place] [address] Care Team Providers Care Csw Name Role Phone Cecil Kee MD Primary Care Provider [phone] Sujey Kebede DO Primary Care Pro vider Unavailable Osiel Archibald MD Primary Care Provider [phone] Buzz Harrington DO Primary Care Provider Elizabeth vailable Osiel Archibald MD Primary Care Provider [phone] Buzz Harrington DO Primary Care Provider [place] Osiel Summers MD Primary Care Provider [phone] [facility], Pcp Primary Care Provider Unavailabl e Encounter Details Date Type Department Care Team Description 05/05/2015 School Business Administrator Report Medical Records [address] [place] [address] Julius Son MD Social History Tobacco Use Types Packs/Day Years Used Date Smoking Tobacco: Former Comments:quit 1997 Alcohol Use Standard Drinks/Week Comments Yes 2.5 (1 standard drin k = 0.6 oz pure alcohol) cut down to 3 drinks a week as of 01/31/2014. Sex Assigned at Date Recorded Not on file documented as of this encounter Plan of Treatment Not on file documented as of this encounter Visit Diagnoses Not on filedocumented in this encounter Care Teams Csw Relationship Specialty Start Date End Date Cecil Kee MD [address] [place] [address] PCP - General Internal Medicine 05/17/11 01/28/16 Sujey Kebede, DO [address] [place] [address] 21529 PCP - General Internal Medicine 01/29/16 12/27/20 Osiel Archibald MD [address] [place] [address] 05469 PCP - General Internal Medicine 12/28/20 01/13/21 Buzz Harrington, DO [address] [place] [address] 15961 PCP - General Internal Medicine 01/14/21 01/14/21 Osiel Archibald MD [address] [place] [address] 33589 PCP - General Internal Medicine 01/15/21 02/11/21 Buzz Harrington, DO [address] [place] [address] 58437 PCP - General Internal Medicine 02/12/21 04/06/21 Osiel Archibald MD [address] [place] [address] 75933 PCP - General Internal Medicine 04/07/21 11/20/22 [facility], Pcp [address] [place] [address] 22368 PCP - General Internal Medicine 11/21/22 documented as of this encounter
--- OUTSIDE RECORDS SUMMARY | 2025-05-27 07:02 | XMS_ITS | Encounter Summary ---
Author Organization [facility] Address [address] [place] [address] Care Team Providers Care Catalogue Maker Name Role Phone Sujey Kebede DO Primary Care Pro vider Unavailable Osiel Archibald MD Primary Care Provider Buzz Harrington DO Primary Care Provider [place] Osiel Summers MD Primary Care Provider [phone] Buzz Harrington DO Primary Care Provider [place] Osiel Summers MD Primary Care Provider [phone] [facility], Pcp Primary Care Provider Unavailabl e Encounter Details Date Type Department Care Team Description 01/29/2020 Hot Braider Report Medical Records [address] [place] [address] Julius Son MD Social History Tobacco Use [...] on filedocumented in this encounter Care Teams Catalogue Maker Relationship Specialty Start Date End Date Sujey Kebede DO PCP - General Internal Medicine 01/29/16 12/27/20 Osiel Archibald MD [address] [place] [address]20 PCP - General Internal Medicine 12/28/20 01/13/21 Buzz Harrington DO [address] [place] [address] 18266 PCP - General Internal Medicine 01/14/21 01/14/21 Osiel Archibald MD [address] [place] [address] PCP - General Internal Medicine 01/15/21 02/11/21 Buzz Harrington DO [address] [place] [address] 24111 PCP - General Internal Medicine 02/12/21 04/06/21 Osiel Archibald MD [address] [place] [address] 55346 PCP - General Internal Medicine 04/07/21 11/20/22 [facility], Pcp [address] [place] [address] 67167 PCP - General Internal Medicine 11/21/22 documented as of this encounter
--- OUTSIDE RECORDS SUMMARY | 2025-05-27 07:02 | XMS_ITS | Encounter Summary ---
Author Organization [facility] Address [address] [place] [address] Care Team Providers Care General Operations Agent Name Role Phone Osiel Archibald MD Primary Care Provider [phone] [facility], Pcp Primary Care Provider [facility] Encounter Details Date Type Department Care Team Description 06/11/2021 Rest Room Matron Report Medical Records [address] [place], [place] [id number] Kallie Aguilar Social History Tobacco Use Types Packs/Day Years Used Date Smoking Tobacco: Former Cigarettes 2 967 - 1997 Cigars Smokeless Tobacco: Never Alcohol Use Standard Drinks/Week Comments Yes 2.5 (1 standard drink = 0.6 oz p ure alcohol) wine Sex Assigned at Date Recorded Not on file documented as of this encounter Plan of Treatment Not on file documented as of this encounter Visit Diagnoses Not on filedocumented in this encounter Care Teams General Operations Agent Relationship Specialty Start Date End Date Osiel Archibald MD [address] [place], [place] [phone] PCP - General Internal Medicine 04/07/21 11/20/22 [facility], Pcp [address] [place] [address] 78753 PCP - General Internal Medicine 11/21/22 documented as of this encounter
--- OUTSIDE RECORDS SUMMARY | 2025-05-27 07:02 | XMS_ITS | Encounter Summary ---
Author Organization [facility] Address [address] [place] [address] Care Team Providers Care Chip Machine Operator Name Role Phone Sujey Kebede DO Primary Care Pro vider Unavailable Osiel Archibald MD Primary Care Provider [phone] Buzz Harrington DO Primary Care Provider [place] Osiel Summers MD Primary Care Provider [phone] Buzz Harrington DO Primary Care Provider [place] Osiel Summers MD Primary Care Provider [phone] [facility], Pcp Primary Care Provider Unavailabl e Encounter Details Date Type Department Care Team Description 10/11/2017 Sander Setter Report Medical Records [address] [place] [address] 15673 Julius Son MD Social History Tobacco Use [...] on filedocumented in this encounter Care Teams Chip Machine Operator Relationship Specialty Start Date End Date Sujey Kebede DO PCP - General Internal Medicine 01/29/16 12/27/20 Osiel Archibald MD [address] [place] [address]20 PCP - General Internal Medicine 12/28/20 01/13/21 Buzz Harrington, [address] [place] [address] 29886 PCP - General Internal Medicine 01/14/21 01/14/21 sOiel Archibald MD [address] [place] [address] PCP - General Internal Medicine 01/15/21 02/11/21 Buzz Harrington DO [address] [place] [address] 12933 PCP - General Internal Medicine 02/12/21 04/06/21 Osiel Archibald MD [address] [place] [address] 81445 PCP - General Internal Medicine 04/07/21 11/20/22 [facility], Pcp [address] [place] [address] 11671 PCP - General Internal Medicine 11/21/22 documented as of this encounter
--- OUTSIDE RECORDS SUMMARY | 2025-05-27 07:02 | XMS_ITS | Encounter Summary ---
Author Organization [facility] Address [address] [place] [address] Care Team Providers Care Motor Equipment Lieutenant Name Role Phone Sujey Kebede DO Primary Care Pro vider Unavailable Osiel Archibald MD Primary Care Provider [phone] Buzz Harrington DO Primary Care Provider [place] Osiel Summers MD Primary Care Provider Buzz Harrington DO Primary Care Provider [place] Osiel Summers MD Primary Care Provider [phone] [facility], Pcp Primary Care Provider Unavailabl e Encounter Details Date Type Department Care Team Description 04/25/2016 [facility] Medical Records [address] [place] [address] Abstract, Provider Social History Tobacco Use Types Packs/Day Years [...] on filedocumented in this encounter Care Teams Motor Equipment Lieutenant Relationship Specialty Start Date End Date Sujey Kebede DO PCP - General Internal Medicine 01/29/16 12/27/20 Osiel Archibald MD [address] [place] [address] [phone] PCP - General Internal Medicine 12/28/20 01/13/21 Buzz Harrington DO [address] [place] [address] 74671 PCP - General Internal Medicine 01/14/21 01/14/21 Osiel Archibald MD [address] [place] [address] PCP - General Internal Medicine 01/15/21 02/11/21 Buzz Harrington DO [address] [place] [address] 73848 PCP - General Internal Medicine 02/12/21 04/06/21 Osiel Archibald MD [address] [place] [address] 60680 PCP - General Internal Medicine 04/07/21 11/20/22 [facility], Pcp [address] [place] [address] 71006 PCP - General Internal Medicine 11/21/22 documented as of this encounter
--- OUTSIDE RECORDS SUMMARY | 2025-05-27 07:02 | XMS_ITS | Encounter Summary ---
Author Organization [facility] Address [address] [place] [address] Care Team Providers Care Master Automotive Glass Technician Name Role Phone Cecil Kee MD Primary Care Provider Sujey Kebede DO Primary Care Pro vider Unavailable Osiel Archibald MD Primary Care Provider [phone] Buzz Harrington DO Primary Care Provider [place] vailable Osiel Archibald MD Primary Care Provider [phone] Buzz Harrington DO Primary Care Provider [place] nelidable Osiel Archibald MD Primary Care Provider [phone] [facility], [facility] Primary Care Provider Unavailabl e Encounter Details Date Type Department Care Team Description 03/17/2014 Concrete Stone Finisher Report Medical Records [address] [place] [address] Julius Son MD Social History Tobacco Use Types Packs/Day Years Used Date Smoking Tobacco: Former Comments:quit 1997 Alcohol Use Standard Drinks/Week Comments Yes 0 (1 standard drink = 0.6 oz pur e alcohol) 6 pack/day, verified 05/2010 Sex Assigned at Date Recorded Not on file documented as of this encounter Plan of Treatment Not on file documented as of this encounter Visit Diagnoses Not on filedocumented in this encounter Care Teams Master Automotive Glass Technician Relationship Specialty Start Date End Date Cecil Kee MD [address] [place], [place] [phone] PCP - General Internal Medicine 05/17/11 01/28/16 Sujey Kebede DO [address] [place] [address] 08502 PCP - General Internal Medicine 01/29/16 12/27/20 Osiel Archibald MD [address] [place] [address] 82288 PCP - General Internal Medicine 12/28/20 01/13/21 Buzz Harrington, [address] [place] [address] 75265 PCP - General Internal Medicine 01/14/21 01/14/21 Osiel Archibald MD [address] [place] [address] 12881 PCP - General Internal Medicine 01/15/21 02/11/21 Buzz Harrington, [address] [address] PCP - General Internal Medicine 02/12/21 04/06/21 Osiel Archibald MD [address] [place] [address] 67692 PCP - General Internal Medicine 04/07/21 11/20/22 [facility], Pcp [address] [place] [address] 78334 PCP - General Internal Medicine 11/21/22 documented as of this encounter
--- OUTSIDE RECORDS SUMMARY | 2025-05-27 07:02 | XMS_ITS | Encounter Summary ---
Author Organization [facility] Address [address] [place] [address] Care Team Providers Care Refractory Products Supervisor Name Role Phone Chito Duron MD Primary Care Provider [phone] Cecil Kee MD Primary Care Provider [phone] Sujey Kebede DO Primary Care Pro vider Unavailable Osiel Archibald MD Primary Care Provider [phone] Buzz Harrington DO Primary Care Provider [place] Osiel Summers MD Primary Care Provider [phone] Buzz Harrington DO Primary Care Provider [place] Osiel Summers MD Primary Care Provider [phone] [facility], [facility] Primary Care Provider Unavailabl e Reason for Visit * Reason Comments lab test stool for occult blo od results. Encounter Details Date Type Department Care Team Description 08/21/2003 Telephone Medical [address] [place], [place] [phone] Chito Duron MD [address] [place] [address] [phone] lab test (stool for occult blood results.) Social History Tobacco Use Types Packs/Day Years Used Date Smoking Tobacco: Never Assessed Sex Assigned at Date Recorded Not on file documented as of this encounter Miscellaneous Notes * Telephone Encounter - 08/21/2003 1:46 AM ESTCALL RECEIVED. Contact: 3 cards tested, 3 cards negative for blood. documented in this encounter Plan of Treatment Not on file documented as of this encounter Visit Diagnoses Not on filedocumented in this encounter Care Teams Refractory Products Supervisor Relationship Specialty Start Date End Date Chito Duron MD [address] [place] [address] 9[address]50 PCP - General 10/02/1991 05/16/11 Cecil Kee MD [address] [place] [address] 72681 PCP - General Internal Medicine 05/17/11 01/28/16 Sujey Kebede, DO [address] [place] [address] 12834 PCP - General Internal Medicine 01/29/16 12/27/20 Osiel Archibald MD [address] [place] [address] 24240 PCP - General Internal Medicine 12/28/20 01/13/21 Buzz Harrington, DO [address] [place] [address] 96726 PCP - General Internal Medicine 01/14/21 01/14/21 Osiel Archibald MD [address] [place] [address] 69148 PCP - General Internal Medicine 01/15/21 02/11/21 Buzz Harrington, DO [address] [place] [address] 57475 PCP - General Internal Medicine 02/12/21 04/06/21 Osiel Archibald MD [address] [place] [address] 05666 PCP - General Internal Medicine 04/07/21 11/20/22 [facility], [address] [address] PCP - General Internal Medicine 11/21/22 documented as of this encounter
--- OUTSIDE RECORDS SUMMARY | 2025-05-27 07:02 | XMS_ITS | Encounter Summary ---
Author Organization [facility] Address [address] [place] [address] Care Team Providers Care Policewoman Name Role Phone Sujey Kebede DO Primary Care Pro vider Unavailable Osiel Archibald MD Primary Care Provider [phone] Buzz Harrington DO Primary Care Provider [place] Osiel Summers MD Primary Care Provider [phone] Buzz Harrington DO Primary Care Provider [place] Osiel Summers MD Primary Care Provider [phone] [facility], Pcp Primary Care Provider Unavailabl e Encounter Details Date Type Department Care Team Description 07/04/2017 Orders Only Adult Medicine [address] [phone] Sujey Kebede DO Social History Tobacco Use Types Packs/Day Years [...] on filedocumented in this encounter Care Teams Policewoman Relationship Specialty Start Date End Date Sujey Kebede DO PCP - General Internal Medicine 01/29/16 12/27/20 Osiel Archibald MD [address] [place] [address] 17656 PCP - General Internal Medicine 12/28/20 01/13/21 Buzz Harrington, [address] [place] [address] 13841 PCP - General Internal Medicine 01/14/21 01/14/21 Osiel Archibald MD [address] [place] [address] 74822 PCP - General Internal Medicine 01/15/21 02/11/21 Buzz Harrington, [address] [place] [address] 05603 PCP - General Internal Medicine 02/12/21 04/06/21 Osiel Archibald MD [address] [place] [address] 15035 PCP - General Internal Medicine 04/07/21 11/20/22 [facility], Pcp [address] [place] [address] 56524 PCP - General Internal Medicine 11/21/22 documented as of this encounter
--- OUTSIDE RECORDS SUMMARY | 2025-05-27 07:02 | XMS_ITS | Encounter Summary ---
Author Organization Formerly [facility] Address [address] [place] [address] Care Team Providers Care Hooker On Name Role Phone Osiel Archibald MD Primary Care Provider [phone] Buzz Harrington DO Primary Care Provider Elizabeth Osiel Summers MD Primary Care Provider [phone] Buzz Harrington DO Primary Care Provider Osiel Vivas MD Primary Care Provider [phone] [facility], Pcp Primary Care Provider Unavailabl e Encounter Details Date Type Department Care Team Description 12/28/2020 Pt. Non Urgent Medic al Question Adult Medicine [address] [id number] Sujey Kebede DO Social History Tobacco Use Types Packs/Day Years Used Date Smoking Tobacco: Former Smokeless Tobacco: Never Comments:quit 1997 Alcohol Use Standard Drinks/Week Comments Yes 2.5 (1 standard drink = 0.6 oz p ure alcohol) wine Sex Assigned at Date Recorded Not on file documented as of this encounter Miscellaneous Notes * Telephone Encounter - Sujey Marti DO - 12/29/2020 11:13 AM EDT Ref to ortho placed * Telephone Encounter - Justina Granados M.A. - 12/28/2020 11:34 AM EDTFrom: Parveen Vallejo To: Louie Marti Sent: 12/28/2020 9:55 AM EDT Subject: Knees Hello, I finally changed my PCP but since you are more familiar with the latest x-ray of my knees could you see that I get a referral to orthopedics please. Thanks P.S. I am going to miss you...... documented in this encounter Plan of Treatment Not on file documented as of this encounter Visit Diagnoses Not on filedocumented in this encounter Care Teams Hooker On Relationship Specialty Start Date End Date Osiel Archibald MD [address] [place] [address] PCP - General Internal Medicine 12/28/20 01/13/21 Buzz Harrington DO [address] [place] [address] PCP - General Internal Medicine 01/14/21 01/14/21 Osiel Archibald MD [address] [place] [address] PCP - General Internal Medicine 01/15/21 02/11/21 Buzz Harrington DO [address] [place] [address] PCP - General Internal Medicine 02/12/21 04/06/21 Osiel Archibald MD [address] [place] [address] PCP - General Internal Medicine 04/07/21 11/20/22 [facility], [address] [address] PCP - General Internal Medicine 11/21/22 documented as of this encounter
--- OUTSIDE RECORDS SUMMARY | 2025-05-27 07:02 | XMS_ITS | Encounter Summary ---
Author Organization [facility] Address [address] [place] [address] Care Team Providers Care Wagon Winder Name Role Phone Oisel Archibald MD Primary Care Provider [phone] [facility], Pcp Primary Care Provider Unavailabl e Encounter Details Date Type Department Care Team Description 05/16/2021 Pt. Referral Request [facility] Mireya [address] [place] [address] [id number] Md Mireya Social History Tobacco Use Types Packs/Day Years Used Date Smoking Tobacco: Former Cigarettes 2 967 - 1997 Cigars Smokeless Tobacco: Never Alcohol Use Standard Drinks/Week Comments Yes 2.5 (1 standard drink = 0.6 oz p ure alcohol) wine Sex Assigned at Date Recorded Not on file COVID-19 Exposure Response Date Recorded In the last month, have you been in contact with someone who was confirmed or suspected to have Coronavirus / COVID-19? No / Unsure 05/03/2021 10:01 AM EDT documented as of this encounter Plan of Treatment Not on file documented as of this encounter Visit Diagnoses Not on filedocumented in this encounter Care Teams Wagon Winder Relationship Specialty Start Date End Date Osiel Archibald MD [address] [place] [address] PCP - General Internal Medicine 04/07/21 11/20/22 [facility], Pcp [address] [place] [address] PCP - General Internal Medicine 11/21/22 documented as of this encounter
--- OUTSIDE RECORDS SUMMARY | 2025-05-27 07:02 | XMS_ITS | Encounter Summary ---
Author Organization [facility] Address [address] [place] [address] Care Team Providers Care Crm Architect Name Role Phone Osiel Archibald MD Primary Care Provider [phone] [facility], Pcp Primary Care Provider Unavailabl e Encounter Details Date Type Department Care Team Description 08/31/2021 Incoming Correspondence [facility] [address] [place] [phone] Donald Esquivel MD Social History Tobacco Use Types Packs/Day [...] on filedocumented in this encounter Care Teams Crm Architect Relationship Specialty Start Date End Date Osiel Archibald MD [address] [place] [address] [phone] PCP - General Internal Medicine 04/07/21 11/20/22 [facility], Pcp [address] [place] [address] PCP - General Internal Medicine 11/21/22 documented as of this encounter
--- OUTSIDE RECORDS SUMMARY | 2025-05-27 07:02 | XMS_ITS | Encounter Summary ---
Author Organization [facility] Address [address] [place] [address] Care Team Providers Care Chimney Construction Supervisor Name Role Phone Sujey Kebede DO Primary Care Pro vider Unavailable Osiel Archibald MD Primary Care Provider [phone] Buzz Harrington DO Primary Care Provider Elizabeth Osiel Summers MD Primary Care Provider [phone] Buzz Harrington DO Primary Care Provider Elizabeth Osiel Summers MD Primary Care Provider [phone] [facility], Pcp Primary Care Provider Unavailabl e Encounter Details Date Type Department Care Team Description 06/15/2016 Director Of Managed Services Report Medical Records [address] [place] [address] Julius Son MD Social History Tobacco Use [...] on filedocumented in this encounter Care Teams Chimney Construction Supervisor Relationship Specialty Start Date End Date Sujey Kebede DO PCP - General Internal Medicine 01/29/16 12/27/20 Osiel Archibald MD [address] [place] [address] PCP - General Internal Medicine 12/28/20 01/13/21 Buzz Harrington, [address] [place] [address] PCP - General Internal Medicine 01/14/21 01/14/21 Osiel Archibald MD [address] [place] [address] PCP - General Internal Medicine 01/15/21 02/11/21 Buzz Harrington DO [address] [place] [address] PCP - General Internal Medicine 02/12/21 04/06/21 Osiel Archibald MD [address] [place] [address] PCP - General Internal Medicine 04/07/21 11/20/22 [facility], Pcp [address] [place] [address] PCP - General Internal Medicine 11/21/22 documented as of this encounter
--- OUTSIDE RECORDS SUMMARY | 2025-05-27 07:02 | XMS_ITS | Encounter Summary ---
Author Organization [facility] Address [address] [place] [address] Care Team Providers Care Insole Channeler Name Role Phone Osiel Archibald MD Primary Care Provider [phone] Buzz Harrington DO Primary Care Provider Elizabeth Osiel Summers MD Primary Care Provider [phone] Buzz Harrington DO Primary Care Provider Elizabeth Osiel Summers MD Primary Care Provider [phone] On License Of [facility] Primary Care Provider Unavailabl e Reason for Visit * Reason Onset Date Comments Mychart Rx Refill 01/12/2021 Encounter Details Date Type Department Care Team Description 01/12/2021 Refill Adult Medicine [address] [id number] Sujey Kebede DO Mychart Rx Refill Social History Tobacco Use Types Packs/Day Years Used Date Smoking Tobacco: Former Smokeless Tobacco: Never Comments:quit 1997 Alcohol Use Standard Drinks/Week Comments Yes 2.5 (1 standard drink = 0.6 oz p ure alcohol) wine Sex Assigned at Date Recorded Not on file documented as of this encounter Miscellaneous Notes * Telephone Encounter - Tessy Vee M.A. - 01/12/2021 1:57 PM EDT Lab Results Component Value Date NA 134 07/01/2020 K 4.8 07/01/2020 CO2 27 07/01/2020 CL 101 07/01/2020 BUN 8 07/01/2020 CREAT 0.85 07/01/2020 GLU 101 07/01/2020 CA 9.0 07/01/2020 GFR > 60 07/01/2020 Lab Results Component Value Date CHOL 167 03/27/2020 LDL 79 03/27/2020 HDL 61 03/27/2020 TRIG 135 03/27/2020 SGOT 25 10/11/2018 SGPT 27 10/11/2018 Last appt 11/06/20 pending appt with new PCP 04/13/21 documented in this encounter Plan of Treatment Not on file documented as of this encounter Visit Diagnoses Not on filedocumented in this encounter Care Teams Insole Channeler Relationship Specialty Start Date End Date Osiel Archibald MD [address] [place] [address] PCP - General Internal Medicine 12/28/20 01/13/21 Buzz Harrington DO [address] [place] [address] PCP - General Internal Medicine 01/14/21 01/14/21 Osiel Archibald MD [address] [place] [address] PCP - General Internal Medicine 01/15/21 02/11/21 Buzz Harrington DO [address] [place] [address] PCP - General Internal Medicine 02/12/21 04/06/21 Osiel Archibald MD [address] [place] [address] PCP - General Internal Medicine 04/07/21 11/20/22 On License Of [facility], [address] [address] PCP - General Internal Medicine 11/21/22 documented as of this encounter
--- OUTSIDE RECORDS SUMMARY | 2025-05-27 07:02 | XMS_ITS | Encounter Summary ---
Author Organization [facility] Address [address] [place] [address] Care Team Providers Care Salesperson Pets And Pet Supplies Name Role Phone Cecil Kee MD Primary Care Provider [phone] Sujey Kebede DO Primary Care Pro vider Unavailable Osiel Archibald MD Primary Care Provider [phone] Buzz Harrington DO Primary Care Provider Elizabeth vailable Osiel Archibald MD Primary Care Provider [phone] Buzz Harrington DO Primary Care Provider Elizabeth nelidable Osiel Archibald MD Primary Care Provider [phone] [facility] Primary Care Provider Unavailabl e Encounter Details Date Type Department Care Team Description 02/24/2014 Boat Officer Report Medical Records [address] [place] [address] Julius Son MD Social History Tobacco Use [...] on filedocumented in this encounter Care Teams Salesperson Pets And Pet Supplies Relationship Specialty Start Date End Date Cecil Kee MD [address] [place], [place] [phone] PCP - General Internal Medicine 05/17/11 01/28/16 Sujey Kebede DO [address] [place] [address] PCP - General Internal Medicine 01/29/16 12/27/20 Osiel Archibald MD [address] [place] [address] PCP - General Internal Medicine 12/28/20 01/13/21 Buzz Harrington, [address] [place] [address] PCP - General Internal Medicine 01/14/21 01/14/21 Osiel Archibald MD [address] [place] [address] PCP - General Internal Medicine 01/15/21 02/11/21 Buzz Harrington, [address] [address] PCP - General Internal Medicine 02/12/21 04/06/21 Osiel Archibald MD [address] [place] [address] PCP - General Internal Medicine 04/07/21 11/20/22 [facility], Pcp [address] [place] [address] PCP - General Internal Medicine 11/21/22 documented as of this encounter
--- OUTSIDE RECORDS SUMMARY | 2025-05-27 07:02 | XMS_ITS | Encounter Summary ---
Author Organization [facility] Address [address] [place] [address] Care Team Providers Care Development Technologist Name Role Phone Chito Ochoa MD Primary Care Provider [phone] Cecil Kee MD Primary Care Provider [phone] Sujey Kebede DO Primary Care Pro vider Unavailable Osiel Archibald MD Primary Care Provider [phone] Buzz Harrington DO Primary Care Provider Elizabeth bernardoilaOsiel Sierra MD Primary Care Provider [phone] Buzz Harrington DO Primary Care Provider Elizabeth Osiel Summers MD Primary Care Provider [phone] [facility], Pcp Primary Care Provider Unavailabl e Reason for Visit * Reason Comments other Encounter Details Date Type Department Care Team Description 10/04/2004 Telephone Adult Medicine [address] [phone] Chito Ochoa MD [address] [place] [address] [phone] other Social History Tobacco Use Types Packs/Day Years Used Date Smoking Tobacco: Never Assessed Sex Assigned at Date Recorded Not on file documented as of this encounter Miscellaneous Notes * Telephone Encounter - 10/04/2004 3:[address] Ochoa * Telephone Encounter - 10/04/2004 3:10 PM EDTCALL RECEIVED. Contact: [phone] pt was just in to see dr ochoa today, dr ochoa increased pt medication oxcycontin, dr casillas ski wanted pt to call back and let dr know how many pills pt had left in bottle. pt states that heh as 120 left in bottle. documented in this encounter Plan of Treatment Not on file documented as of this encounter Visit Diagnoses Not on filedocumented in this encounter Care Teams Development Technologist Relationship Specialty Start Date End Date Chito Ochoa MD [address] [place] [address] PCP - General 10/02/1991 05/16/11 Cecil Kee MD [address] [place] [address] PCP - General Internal Medicine 05/17/11 01/28/16 Sujey Kebede, [address] [place] [address] PCP - General Internal Medicine 01/29/16 12/27/20 Osiel Archibald MD [address] [place] [address] PCP - General Internal Medicine 12/28/20 01/13/21 Buzz Harrington, [address] [place] [address] PCP - General Internal Medicine 01/14/21 01/14/21 Osiel Archibald MD [address] [place] [address] 267[address] PCP - General Internal Medicine 01/15/21 02/11/21 Buzz Harrington, [address] [place] [address] PCP - General Internal Medicine 02/12/21 04/06/21 Osiel Archibald MD [address] [place] [address] PCP - General Internal Medicine 04/07/21 11/20/22 [facility], Pcp [address] [place] [address] PCP - General Internal Medicine 11/21/22 documented as of this encounter
--- OUTSIDE RECORDS SUMMARY | 2025-05-27 07:02 | XMS_ITS | Encounter Summary ---
Author Organization [facility] Address [address] [place] [address] Care Team Providers Care Fuel Assembler Name Role Phone Osiel Archibald MD Primary Care Provider [phone] [facility], Pcp Primary Care Provider Unavailabl e Encounter Details Date Type Department Care Team Description 04/21/2021 [facility] Records [facility] [address] [place] [address] [place] [phone] Donald Esquivel MD Social History Tobacco Use [...] have Coronavirus / COVID-19? No / Unsure 04/19/2021 10:02 AM EDT documented as of this encounter Plan of Treatment Not on file documented as of this encounter Visit Diagnoses Not on filedocumented in this encounter Care Teams Fuel Assembler Relationship Specialty Start Date End Date Osiel Archibald MD [address] [place] [address] PCP - General Internal Medicine 04/07/21 11/20/22 [facility], Pcp [address] [place] [address] PCP - General Internal Medicine 11/21/22 documented as of this encounter
--- OUTSIDE RECORDS SUMMARY | 2025-05-27 07:02 | XMS_ITS | Encounter Summary ---
Author Organization [facility] Address [address] [place] [address] Care Team Providers Care Utility Person Name Role Phone Sujey Kebede DO Primary Care Pro vider Unavailable Osiel Archibald MD Primary Care Provider [phone] Buzz Harrington DO Primary Care Provider Elizabeth Osiel Summers MD Primary Care Provider [phone] Buzz Harrington DO Primary Care Provider Elizabeth Osiel Summers MD Primary Care Provider [phone] [facility], Pcp Primary Care Provider Unavailabl e Encounter Details Date Type Department Care Team Description 06/02/2016 Languages And Literature Instructor Report Medical Records [address] [place] [address] Abstract, Provider Social History Tobacco Use Types [...] on filedocumented in this encounter Care Teams Utility Person Relationship Specialty Start Date End Date Sujey Kebede DO PCP - General Internal Medicine 01/29/16 12/27/20 Osiel Archibald MD [address] [place] [address] PCP - General Internal Medicine 12/28/20 01/13/21 Buzz Harrington DO [address] [place] [address]781 PCP - General Internal Medicine 01/14/21 01/14/21 Osiel Archibald MD [address] [place] [address] PCP - General Internal Medicine 01/15/21 02/11/21 Buzz Harrington DO [address] [place] [address] PCP - General Internal Medicine 02/12/21 04/06/21 Osiel Archibald MD [address] [place] [address]360 PCP - General Internal Medicine 04/07/21 11/20/22 [facility], Pcp [address] [place] [address] PCP - General Internal Medicine 11/21/22 documented as of this encounter
--- OUTSIDE RECORDS SUMMARY | 2025-05-27 07:02 | XMS_ITS | Encounter Summary ---
Author Organization [facility] Address [address] [place] [address] Care Team Providers Care Clarification Operator Name Role Phone Sujey Kebede DO Primary Care Pro vider Unavailable Osiel Archibald MD Primary Care Provider [phone] Buzz Harrington DO Primary Care Provider Elizabeth Osiel Summers MD Primary Care Provider Buzz Harrington DO Primary Care Provider Elizabeth Osiel Summers MD Primary Care Provider [phone] [facility] Reason for Visit * Reason Comments E-prescribe Rx Request Encounter Details Date Type Department Care Team Description 11/19/2018 Refill Adult Medicine [address] [phone] Sujey Kebede DO E-prescribe Rx Request Social History Tobacco Use [...] Telephone Encounter - Tessy Vee M.A. - 11/19/2018 10:59 AM EDT Lab Results Component Value Date NA 138 10/11/2018 K 4.3 10/11/2018 CO2 28 10/11/2018 CL 103 10/11/2018 BUN 10 10/11/2018 CREAT 0.90 10/11/2018 GLU 111 10/11/2018 CA 8.9 10/11/2018 GFR > 60 10/11/2018 Last ov 10/16/18 * Telephone Encounter - Ana Johnson - 11/19/2018 9:35 AM EDT Patient would like script to be: E-PRESCRIBED/FAXED TO PHARMACY WHEN WAS THE PATIENT'S LAST APPOINTMENT IN ADULT MEDICINE? 10/16/18 WHEN WAS THE LAST TIME THE PATIENT SAW THEIR PCP? Same as above Does patient have an upcoming appointment? Yes 04/09/19 (THE MEDICATION REQUESTED IS ON THE MED [...] N/A Patients current insurance carrier is: Payor: CAROL ANN SENIOR / Plan: CAROL ANN SENIOR $10/20 JOSE / Product Type: OTHER documented in this encounter Plan of Treatment Not on file documented as of this encounter Visit Diagnoses Not on filedocumented in this encounter Care Teams Clarification Operator Relationship Specialty Start Date End Date Sujey Kebede DO PCP - General Internal Medicine 01/29/16 12/27/20 Osiel Archibald MD [address] [place] [address] PCP - General Internal Medicine 12/28/20 01/13/21 Buzz Harrington, [address] [place] [address] PCP - General Internal Medicine 01/14/21 01/14/21 Osiel Archibald MD [address] [place] [address] PCP - General Internal Medicine 01/15/21 02/11/21 Buzz Harrington, [address] [place] [address] PCP - General Internal Medicine 02/12/21 04/06/21 Osiel Archibald MD [address] [place] [address] PCP - General Internal Medicine 04/07/21 11/20/22 [facility], Pcp [address] [place] [address] PCP - General Internal Medicine 11/21/22 documented as of this encounter
--- OUTSIDE RECORDS SUMMARY | 2025-05-27 07:02 | XMS_ITS | Encounter Summary ---
Author Organization [facility] Address [address] [place] [address] Care Team Providers Care Exploration Engineer Name Role Phone Sujey Kebede DO Primary Care Pro vider Unavailable Osiel Archibald MD Primary Care Provider [phone] Buzz Harrington DO Primary Care Provider Elizabeth Osiel Summers MD Primary Care Provider [phone] Buzz Harrington DO Primary Care Provider Elizabeth Osiel Summers MD Primary Care Provider [phone] [facility], Pcp Primary Care Provider Unavailabl e Encounter Details Date Type Department Care Team Description 02/11/2016 Supervisor Industrial Garment Report Medical Records [address] [place] [address] Han Lugo MD Social History Tobacco Use Types Packs/Day [...] on filedocumented in this encounter Care Teams Exploration Engineer Relationship Specialty Start Date End Date Sujey Kebede DO PCP - General Internal Medicine 01/29/16 12/27/20 Osiel Archibald MD [address] [place] [address] PCP - General Internal Medicine 12/28/20 01/13/21 Buzz Harrington, [address] [place] [address] PCP - General Internal Medicine 01/14/21 01/14/21 Osiel Archibald MD [address] [place] [address] PCP - General Internal Medicine 01/15/21 02/11/21 Buzz Harrington, [address] [place], [place] [phone] PCP - General Internal Medicine 02/12/21 04/06/21 Osiel Archibald MD [address] [place] [address] PCP - General Internal Medicine 04/07/21 11/20/22 [facility], Pcp [address] [place], [place] [phone] PCP - General Internal Medicine 11/21/22 documented as of this encounter
--- OUTSIDE RECORDS SUMMARY | 2025-05-27 07:02 | XMS_ITS | Encounter Summary ---
Author Organization [facility] Address [address] [place] [address] Care Team Providers Care Game Farm Helper Name Role Phone Cecil Kee MD Primary Care Provider [phone] Sujey Kebede DO Primary Care Pro vider Unavailable Osiel Archibald MD Primary Care Provider [phone] Buzz Harrington DO Primary Care Provider Elizabeth vailable Osiel Archibald MD Primary Care Provider [phone] Buzz Harrington DO Primary Care Provider Elizabeth Osiel Summers MD Primary Care Provider [phone] [facility] [place], Pcp Primary Care Provider Unavailabl e Encounter Details Date Type Department Care Team Description 10/08/2014 Roll Examiner Report Medical Records [address] [place] [address] Julius Son MD Social History Tobacco Use [...] on filedocumented in this encounter Care Teams Game Farm Helper Relationship Specialty Start Date End Date Cecil Kee MD [address] [place] [address] PCP - General Internal Medicine 05/17/11 01/28/16 Sujey Kebede, DO [address] [place] [address]28 PCP - General Internal Medicine 01/29/16 12/27/20 Osiel Archibald MD [address] [place] [address] 98324 PCP - General Internal Medicine 12/28/20 01/13/21 Buzz Harrington, DO [address] [place] [address] 71986 PCP - General Internal Medicine 01/14/21 01/14/21 Osiel Archibald MD [address] [place] [address] 88285 PCP - General Internal Medicine 01/15/21 02/11/21 Buzz Harrington, DO [address] [place] [address] 63719 PCP - General Internal Medicine 02/12/21 04/06/21 Osiel Archibald MD [address] [place] [address] 90250 PCP - General Internal Medicine 04/07/21 11/20/22 [facility] [place], Pcp [address] [place] [address]198 PCP - General Internal Medicine 11/21/22 documented as of this encounter
--- OUTSIDE RECORDS SUMMARY | 2025-05-27 07:02 | XMS_ITS | Encounter Summary ---
Author Organization [facility] Address [address] [place] [address] Care Team Providers Care Print Machine Operator Name Role Phone Sujey Kebede DO Primary Care Pro vider Unavailable Osiel Archibald MD Primary Care Provider [phone] Buzz Harrington DO Primary Care Provider Elizabeth Osiel Summers MD Primary Care Provider [phone] Buzz Harrington DO Primary Care Provider Elizabeth Osiel Summers MD Primary Care Provider [phone] [facility], Pcp Primary Care Provider Unavailabl e Encounter Details Date Type Department Care Team Description 10/31/2016 Life Sciences Manager Report Medical Records [address] [place] [id number] Julius Son MD Social History Tobacco Use [...] on filedocumented in this encounter Care Teams Print Machine Operator Relationship Specialty Start Date End Date Sujey Kebede DO PCP - General Internal Medicine 01/29/16 12/27/20 Osiel Archibald MD [address] [place] [address]20 PCP - General Internal Medicine 12/28/20 01/13/21 Buzz Harrington, [address] [place] [address] 60782 PCP - General Internal Medicine 01/14/21 01/14/21 Osiel Archibald MD [address] [place] [address] PCP - General Internal Medicine 01/15/21 02/11/21 Buzz Harrington DO [address] [place] [address] 97349 PCP - General Internal Medicine 02/12/21 04/06/21 Osiel Archibald MD [address] [place] [address] 35314 PCP - General Internal Medicine 04/07/21 11/20/22 [facility], Pcp [address] [place] [address] 37829 PCP - General Internal Medicine 11/21/22 documented as of this encounter
--- OUTSIDE RECORDS SUMMARY | 2025-05-27 07:02 | XMS_ITS | Encounter Summary ---
Author Organization [facility] Address [address] [place] [address] Care Team Providers Care Medical Aides Teacher Name Role Phone Cecil Kee MD Primary Care Provider [phone] Sujey Kebede DO Primary Care Pro vider Unavailable Osiel Archibald MD Primary Care Provider [phone] Buzz Harrington DO Primary Care Provider Elizabeth vailable Osiel Archibald MD Primary Care Provider [phone] Buzz Harrington DO Primary Care Provider Elizabeth nelidable Osiel Archibald MD Primary Care Provider [phone] [facility], Pcp Primary Care Provider Unavailabl e Encounter Details Date Type Department Care Team Description 05/22/2015 Final Assembler Report Medical Records [address] [place] [address] Catalino Suarez MD Social History Tobacco Use Types Packs/Day [...] on filedocumented in this encounter Care Teams Medical Aides Teacher Relationship Specialty Start Date End Date Cecil Kee MD [address] [place] [address] PCP - General Internal Medicine 05/17/11 01/28/16 Lucy Kebedela, DO [address] [place] [address] 70063 PCP - General Internal Medicine 01/29/16 12/27/20 Osiel Archibald MD [address] [place] [address] 91338 PCP - General Internal Medicine 12/28/20 01/13/21 Buzz Harrington, DO [address] [place] [address] 23369 PCP - General Internal Medicine 01/14/21 01/14/21 Osiel Archibald MD [address] [place] [address] 50760 PCP - General Internal Medicine 01/15/21 02/11/21 Buzz Harrington, DO [address] [place] [address] 25089 PCP - General Internal Medicine 02/12/21 04/06/21 Osiel Archibald MD [address] [place] [address] 64914 PCP - General Internal Medicine 04/07/21 11/20/22 [facility], Pcp [address] [place] [address] 39758 PCP - General Internal Medicine 11/21/22 documented as of this encounter
--- OUTSIDE RECORDS SUMMARY | 2025-05-27 07:02 | XMS_ITS | Encounter Summary ---
Author Organization [facility] Address [address] [place] [address] Care Team Providers Care Director Of Database Marketing Name Role Phone Cecil Kee MD Primary Care Provider [phone] Sujey Kebede DO Primary Care Pro vider Unavailable Osiel Archibald MD Primary Care Provider [phone] Buzz Harrington DO Primary Care Provider Elizabeth vailaOsiel Sierra MD Primary Care Provider [phone] Buzz Harrington DO Primary Care Provider Elizabeth Osiel Summers MD Primary Care Provider [phone] [facility], Pcp Primary Care Provider Unavailabl e Encounter Details Date Type Department Care Team Description 03/20/2013 Controlled Substance Contract with Plan Medical Records [address] [place] [address] [id number] Abstract, Provider Social History Tobacco Use Types [...] on filedocumented in this encounter Care Teams Director Of Database Marketing Relationship Specialty Start Date End Date Cecil Kee MD [address] [place] [address] [id number] PCP - General Internal Medicine 05/17/11 01/28/16 Sujey Kebede DO [address] [place] [address] 76908 PCP - General Internal Medicine 01/29/16 12/27/20 Osiel Archibald MD [address] [place] [address] 73284 PCP - General Internal Medicine 12/28/20 01/13/21 Buzz Harrington, DO [address] [place] [address] 37267 PCP - General Internal Medicine 01/14/21 01/14/21 Osiel Archibald MD [address] [place] [address] 58556 PCP - General Internal Medicine 01/15/21 02/11/21 Buzz Harrington, DO [address] [place] [address] 87060 PCP - General Internal Medicine 02/12/21 04/06/21 Osiel Archibald MD [address] [place] [address] 50612 PCP - General Internal Medicine 04/07/21 11/20/22 [facility], Pcp [address] [place] [address] 14798 PCP - General Internal Medicine 11/21/22 documented as of this encounter
--- OUTSIDE RECORDS SUMMARY | 2025-05-27 07:02 | XMS_ITS | Encounter Summary ---
Author Organization [facility] Address [address] [place] [address] Care Team Providers Care Trucking Contractor Name Role Phone Sujey Kebede DO Primary Care Pro vider Unavailable Osiel Archibald MD Primary Care Provider [phone] Buzz Harrington DO Primary Care Provider Elizabeth Osiel Summers MD Primary Care Provider [phone] Buzz Harrington DO Primary Care Provider Elizabeth Osiel Summers MD Primary Care Provider [phone] [facility] Primary Care Provider [facility] Reason for Visit * Reason Onset Date Comments medication problems 06/09/2017 Encounter Details Date Type Department Care Team Description 06/09/2017 Refill Adult Medicine [address] [phone] Sujey Kebede DO medication problems Social History Tobacco Use Types Packs/Day Years Used Date Smoking Tobacco: Former Comments:quit 1997 Alcohol Use Standard Drinks/Week Comments Yes 2.5 (1 standard drin k = 0.6 oz pure alcohol) cut down to 3 drinks a week as of 01/31/2014. Sex Assigned at Date Recorded Not on file documented as of this encounter Miscellaneous Notes * Telephone Encounter - Bettie Otero C.M.A. - 06/09/2017 10:[address] Lamar patient would like to go back to atenolol. Will you send rx for patient? FLORINDA 04/03/17 NOV 09/04/16 Lab Results Component Value Date NA 138 03/15/2017 K 5.0 03/15/2017 CO2 25.0 03/15/2017 CL 97 03/15/2017 BUN 7 03/15/2017 CREAT 1.0 03/15/2017 GLU 101 03/15/2017 CA 9.6 03/15/2017 GFR > 60 03/15/2017 * Telephone Encounter - Celine Riddhi - 06/09/2017 10:30 AM EST Who is calling? The patient Name of the medication metoprolol (TOPROL XL) 50 MG 24 hr Patient has been takingn this because ateneolol 50 mg was on backorder [facility] so he would like this script again What is the specific problem or interaction? If the patient is having a problem with taking the med - how long has the problem been going on? N/A documented in this encounter Plan of Treatment Not on file documented as of this encounter Visit Diagnoses Not on filedocumented in this encounter Care Teams Trucking Contractor Relationship Specialty Start Date End Date Sujey Kebede DO PCP - General Internal Medicine 01/29/16 12/27/20 Osiel Archibald MD [address] [place] [address] PCP - General Internal Medicine 12/28/20 01/13/21 Buzz Harrington DO [address] [place] [address]114 PCP - General Internal Medicine 01/14/21 01/14/21 Osiel Archibald MD [address] [place] [address] PCP - General Internal Medicine 01/15/21 02/11/21 Buzz Harrington DO [address] [place] [address] 47426 PCP - General Internal Medicine 02/12/21 04/06/21 Osiel Archibald MD [address] [place] [address] 44630 PCP - General Internal Medicine 04/07/21 11/20/22 [facility], Pcp [address] [place] [address] PCP - General Internal Medicine 11/21/22 documented as of this encounter
--- OUTSIDE RECORDS SUMMARY | 2025-05-27 07:02 | XMS_ITS | Encounter Summary ---
Author Organization [facility] Address [address] [place] [address] Care Team Providers Care Vertical Punch Operator Name Role Phone Sujey Kebede DO Primary Care Pro vider Unavailable Osiel Archibald MD Primary Care Provider [phone] Buzz Harrington DO Primary Care Provider Elizabeth Osiel Summers MD Primary Care Provider [phone] Buzz Harrington DO Primary Care Provider Elizabeth Osiel Summers MD Primary Care Provider [phone] [facility], Pcp Primary Care Provider Unavailabl e Encounter Details Date Type Department Care Team Description 10/10/2016 Coke Inspector Report Medical Records [address] [place] [address] Han Lugo MD Social History Tobacco Use [...] on filedocumented in this encounter Care Teams Vertical Punch Operator Relationship Specialty Start Date End Date Sujey Kebede DO PCP - General Internal Medicine 01/29/16 12/27/20 Osiel Archibald MD [address] [place] [address]20 PCP - General Internal Medicine 12/28/20 01/13/21 Buzz Harrington, [address] [place] [address] 12175 PCP - General Internal Medicine 01/14/21 01/14/21 Osiel Archibald MD [address] [place] [address] PCP - General Internal Medicine 01/15/21 02/11/21 Buzz Harrington, [address] [place], [place] [phone] PCP - General Internal Medicine 02/12/21 04/06/21 Osiel Archibald MD [address] [place] [address] 99482 PCP - General Internal Medicine 04/07/21 11/20/22 [facility], Pcp [address] [place], [place] [phone] PCP - General Internal Medicine 11/21/22 documented as of this encounter
--- OUTSIDE RECORDS SUMMARY | 2025-05-27 07:02 | XMS_ITS | Encounter Summary ---
Author Organization [facility] Address [address] [place] [address] Care Team Providers Care Palletizer Name Role Phone Sujey Kebede DO Primary Care Pro vider Unavailable Osiel Archibald MD Primary Care Provider [phone] Buzz Harrington DO Primary Care Provider Elizabeth Osiel Summers MD Primary Care Provider [phone] Buzz Harrington DO Primary Care Provider Elizabeth Osiel Summers MD Primary Care Provider [phone] [facility] Primary Care Provider [facility] Reason for Visit * Reason Comments E-prescribe Rx Request Encounter Details Date Type Department Care Team Description 12/14/2020 Refill Adult Medicine [address] [id number] Sujey Kebede DO E-prescribe Rx Request Social [...] have Coronavirus / COVID-19? No / Unsure 11/26/2020 10:20 AM EDT documented as of this encounter Miscellaneous Notes * Telephone Encounter - Allegra Ma M.A. - 12/14/2020 4:19 PM EDT Last office visit 11/06/20 Pt needs to choose a new PCP and schedule a visit Lab Results Component Value Date NA 134 07/01/2020 K 4.8 07/01/2020 CO2 27 07/01/2020 CL 101 07/01/2020 BUN 8 07/01/2020 CREAT 0.85 07/01/2020 GLU 101 07/01/2020 CA 9.0 07/01/2020 GFR > 60 07/01/2020 * Telephone Encounter - Kajal Crawford - 12/14/2020 8:14 AM EDT Patient would like script to be: E-PRESCRIBED/FAXED TO PHARMACY WHEN WAS THE PATIENT'S LAST APPOINTMENT IN ADULT MEDICINE? 11/06/20 WHEN WAS THE LAST TIME THE PATIENT SAW THEIR PCP? Same as above Does patient have an upcoming appointment? No-patient refused appointment, will call back to book appointment (THE MEDICATION REQUESTED IS ON THE MED [...] current insurance carrier is: Payor: CAROL ANN HA / Plan: CAROL ANN HA $10/ JOSE / Product Type: OTHER documented in this encounter Plan of Treatment Not on file documented as of this encounter Visit Diagnoses Not on filedocumented in this encounter Care Teams Palletizer Relationship Specialty Start Date End Date Sujey Kebede DO PCP - General Internal Medicine 01/29/16 12/27/20 Osiel Archibald MD [address] [place] [address] 14756 PCP - General Internal Medicine 12/28/20 01/13/21 Buzz Harrington DO [address] [place] [address] 96178 PCP - General Internal Medicine 01/14/21 01/14/21 Osiel Archibald MD [address] [place] [address] 02328 PCP - General Internal Medicine 01/15/21 02/11/21 Buzz Harrington, [address] [place] [address] 58596 PCP - General Internal Medicine 02/12/21 04/06/21 Osiel Archibald MD [address] [place] [address] 75794 PCP - General Internal Medicine 04/07/21 11/20/[address] [address] PCP - General Internal Medicine 11/21/22 documented as of this encounter
--- OUTSIDE RECORDS SUMMARY | 2025-05-27 07:02 | XMS_ITS | Encounter Summary ---
Author Organization [facility] Address [address] [place] [address] Care Team Providers Care Instructional Material Director Name Role Phone Sujey Kebede DO Primary Care Pro vider Unavailable Osiel Archibald MD Primary Care Provider [phone] Buzz Harrington DO Primary Care Provider Elizabeth Osiel Summers MD Primary Care Provider [phone] Buzz Harrington DO Primary Care Provider Elizabeth Osiel Summers MD Primary Care Provider [phone] [facility], Pcp Primary Care Provider Unavailabl e Encounter Details Date Type Department Care Team Description 04/11/2018 Log Operations Coordinator Report Medical Records [address] [place] [address] 28989 Julius Son MD Social History Tobacco Use [...] on filedocumented in this encounter Care Teams Instructional Material Director Relationship Specialty Start Date End Date Sujey Kebede DO PCP - General Internal Medicine 01/29/16 12/27/20 Osiel Archibald MD [address] [place] [address] 01020 PCP - General Internal Medicine 12/28/20 01/13/21 Buzz Harrington, [address] [place] [address] 13458 PCP - General Internal Medicine 01/14/21 01/14/21 Osiel Archibald MD [address] [place] [address] PCP - General Internal Medicine 01/15/21 02/11/21 Buzz Harrington, [address] [place] [address] 96715 PCP - General Internal Medicine 02/12/21 04/06/21 Osiel Archibald MD [address] [place] [address] 45207 PCP - General Internal Medicine 04/07/21 11/20/22 [facility], Pcp [address] [place], [place] [phone] PCP - General Internal Medicine 11/21/22 documented as of this encounter
--- OUTSIDE RECORDS SUMMARY | 2025-05-27 07:02 | XMS_ITS | Encounter Summary ---
Author Organization [facility] Address [address] [place] [address] Care Team Providers Care Radio Station Manager Name Role Phone Sujey Kebede DO Primary Care Pro vider Unavailable Osiel Archibald MD Primary Care Provider [phone] Buzz Harrington DO Primary Care Provider Elizabeth Osiel Summers MD Primary Care Provider [phone] Buzz Harrington DO Primary Care Provider Elizabeth Osiel Summers MD Primary Care Provider [phone] [facility] Primary Care Provider [facility] Reason for Visit * Reason Onset Date Comments Mychart Rx Refill 12/04/2018 Encounter Details Date Type Department Care Team Description 12/04/2018 Pt. Non Urgent Medic al Question Adult Medicine [address] [id number] Sujey Kebede DO Social History Tobacco Use Types Packs/Day Years Used Date Smoking Tobacco: Former Smokeless Tobacco: Never Comments:quit 1997 Alcohol Use Standard Drinks/Week Comments Yes 2.5 (1 standard drin k = 0.6 oz pure alcohol) cut down to 3 drinks a week as of 01/31/2014. Sex Assigned at Date Recorded Not on file documented as of this encounter Progress Notes * Tessy Vee M.A. - 12/04/2018 8:00 AM EDTFrom: Parveen Vallejo To: Sujey Marti DO Sent: 12/04/2018 7:59 AM EDT Subject: refill Can I get a refill on my omeprazole? documented in this encounter Plan of Treatment Not on file documented as of this encounter Visit Diagnoses Not on filedocumented in this encounter Care Teams Radio Station Manager Relationship Specialty Start Date End Date Sujey Kebede DO PCP - General Internal Medicine 01/29/16 12/27/20 Osiel Archibald MD [address] [place] [address] 55091 PCP - General Internal Medicine 12/28/20 01/13/21 Buzz Harrington DO [address] [place] [address] 91520 PCP - General Internal Medicine 01/14/21 01/14/21 Osiel Archibald MD [address] [place] [address] 63548 PCP - General Internal Medicine 01/15/21 02/11/21 Buzz Harrington DO [address] [place] [address] 50570 PCP - General Internal Medicine 02/12/21 04/06/21 Osiel Archibald MD [address] [place] [address] 71525 PCP - General Internal Medicine 04/07/21 11/20/22 [facility], [address] [address] PCP - General Internal Medicine 11/21/22 documented as of this encounter
--- OUTSIDE RECORDS SUMMARY | 2025-05-27 07:02 | XMS_ITS | Encounter Summary ---
Author Organization [facility] Address [address] [place] [address] Care Team Providers Care Manager Strategic Alliances Name Role Phone Sujey Kebede DO Primary Care Pro vider Unavailable Osiel Archibald MD Primary Care Provider [phone] Buzz Harrington DO Primary Care Provider Elizabeth Osiel Summers MD Primary Care Provider [phone] Buzz Harrington DO Primary Care Provider Elizabeth Osiel Summers MD Primary Care Provider [phone] [facility] Primary Care Provider [facility] Reason for Visit * Reason Comments E-prescribe Rx Request Encounter Details Date Type Department Care Team Description 07/26/2018 Refill Adult Medicine [address] [id number] Bella Alanis PA-C E-prescribe Rx Request Social History Tobacco Use [...] encounter Miscellaneous Notes * Telephone Encounter - Lior Fofana PA-C - 07/26/2018 2:42 PM EST Ok to fill. Vinita Bravo * Telephone Encounter - Allegra Ma M.A. - 07/26/2018 2:40 PM EST Lab Results Component Value Date NA 140 07/14/2017 K 4.8 07/14/2017 CO2 27.3 07/14/2017 CL 100 07/14/2017 BUN 6 07/14/2017 CREAT 0.8 07/14/2017 GLU 95 07/14/2017 CA 9.3 07/14/2017 GFR > 60 07/14/2017 * Telephone Encounter - Candi Mata - 07/26/2018 10:16 AM EST Patient would like script to be: E-PRESCRIBED/FAXED TO PHARMACY WHEN WAS THE PATIENT'S LAST APPOINTMENT IN ADULT MEDICINE? 04/10/18 WHEN WAS THE LAST TIME THE PATIENT SAW THEIR PCP? Same as above Does patient have an upcoming appointment? Yes 10/16/18 (THE MEDICATION REQUESTED IS ON THE MED LIST ABOVE) All of the medications requested were on the CURRENT MEDS list Did you check the Pharmacy information above?: YES Patient wants: 30 -day supply Is this a mail order [...] on filedocumented in this encounter Care Teams Manager Strategic Alliances Relationship Specialty Start Date End Date Sujey Kebede DO PCP - General Internal Medicine 01/29/16 12/27/20 Osiel Archibald MD [address] [place] [address] 38868 PCP - General Internal Medicine 12/28/20 01/13/21 Buzz Harrington, [address] [place] [address] 59129 PCP - General Internal Medicine 01/14/21 01/14/21 Osiel Archibald MD [address] [place] [address] 61124 PCP - General Internal Medicine 01/15/21 02/11/21 Buzz Harrington, [address] [place] [address] 91455 PCP - General Internal Medicine 02/12/21 04/06/21 Osiel Archibald MD [address] [place] [address] 82274 PCP - General Internal Medicine 04/07/21 11/20/22 [facility], Pcp [address] [place] [address] 78561 PCP - General Internal Medicine 11/21/22 documented as of this encounter
--- OUTSIDE RECORDS SUMMARY | 2025-05-27 07:02 | XMS_ITS | Encounter Summary ---
Author Organization [facility] Address [address] [place] [address] Care Team Providers Care Cloth Laminating Supervisor Name Role Phone Cecil Kee MD Primary Care Provider [phone] Sujey Kebede DO Primary Care Pro vider Unavailable Osiel Archibald MD Primary Care Provider [phone] Buzz Harrington DO Primary Care Provider Elizabeth vailable Osiel Archibald MD Primary Care Provider [phone] Buzz Harrington DO Primary Care Provider Elizabeth Osiel Summers MD Primary Care Provider [phone] [facility], Pcp Primary Care Provider Unavailabl e Encounter Details Date Type Department Care Team Description 12/16/2014 Vehicle Painter Report Medical Records [address] [place] [address]28 Julius Son MD Social History Tobacco Use [...] on filedocumented in this encounter Care Teams Cloth Laminating Supervisor Relationship Specialty Start Date End Date Cecil Kee MD [address] [place] [address]20 PCP - General Internal Medicine 05/17/11 01/28/16 Sujey Kebede, DO [address] [place] [address] 93778 PCP - General Internal Medicine 01/29/16 12/27/20 Osiel Archibald MD [address] [place] [address] 72989 PCP - General Internal Medicine 12/28/20 01/13/21 Buzz Harrington, DO [address] [place] [address] 68562 PCP - General Internal Medicine 01/14/21 01/14/21 Osiel Archibald MD [address] [place] [address] 63031 PCP - General Internal Medicine 01/15/21 02/11/21 Buzz Harrington, DO [address] [place] [address] 45661 PCP - General Internal Medicine 02/12/21 04/06/21 Osiel Archibald MD [address] [place] [address] 34946 PCP - General Internal Medicine 04/07/21 11/20/22 [facility], Pcp [address] [place] [address] 97265 PCP - General Internal Medicine 11/21/22 documented as of this encounter
--- OUTSIDE RECORDS SUMMARY | 2025-05-27 07:02 | XMS_ITS | Encounter Summary ---
Author Organization [facility] Address [address] [place] [address] Care Team Providers Care Swimming Pool Installer Name Role Phone Cecil Kee MD Primary Care Provider [phone] Sujey Kebede DO Primary Care Pro vider Unavailable Osiel Archibald MD Primary Care Provider [phone] Buzz Harrington DO Primary Care Provider Elizabeth vailable Osiel Archibald MD Primary Care Provider [phone] Buzz Harrington DO Primary Care Provider Elizabeth bernardoilable Osiel Archibald MD Primary Care Provider [phone] [facility], Pcp Primary Care Provider Unavailabl e Encounter Details Date Type Department Care Team Description 04/14/2014 Learning Designer Report Medical Records [address] [place] [address]05 Julius Son MD Social History Tobacco Use [...] on filedocumented in this encounter Care Teams Swimming Pool Installer Relationship Specialty Start Date End Date Cecil Kee MD [address] [place], [place] [phone] PCP - General Internal Medicine 05/17/11 01/28/16 Sujey Kebede DO [address] [place] [address] 10943 PCP - General Internal Medicine 01/29/16 12/27/20 Osiel Archibald MD [address] [place] [address] 40167 PCP - General Internal Medicine 12/28/20 01/13/21 Buzz Harrington, [address] [place] [address] 11343 PCP - General Internal Medicine 01/14/21 01/14/21 Osiel Archibald MD [address] [place] [address] 15057 PCP - General Internal Medicine 01/15/21 02/11/21 Buzz Harrington, [address] [address] PCP - General Internal Medicine 02/12/21 04/06/21 Osiel Archibald MD [address] [place] [address] 47754 PCP - General Internal Medicine 04/07/21 11/20/22 [facility], Pcp [address] [place] [address] 64701 PCP - General Internal Medicine 11/21/22 documented as of this encounter
--- OUTSIDE RECORDS SUMMARY | 2025-05-27 07:02 | XMS_ITS | Encounter Summary ---
Author Organization [facility] Address [address] [place] [address] Care Team Providers Care Cardiology Specialist Name Role Phone Rufino Duron MD Primary Care Provider [phone] Cecil Kee MD Primary Care Provider Sujey Kebede DO Primary Care Pro vider Unavailable Osiel Archibald MD Primary Care Provider [phone] Buzz Harrington DO Primary Care Provider Elizabeth Osiel Summers MD Primary Care Provider [phone] Buzz Harrington DO Primary Care Provider Elizabeth Osiel Summers MD Primary Care Provider [phone] [facility], [facility] Primary Care Provider Unavailabl e Reason for Visit * Reason Comments refill request REFILL Encounter Details Date Type Department Care Team Description 10/30/2002 Telephone Adult Medicine [address] [id number] Rufino Duron MD [address] [place] [address] [phone] refill request (REFILL) Social History Tobacco Use Types Packs/Day Years Used Date Smoking Tobacco: Never Assessed Sex Assigned at Date Recorded Not on file documented as of this encounter Miscellaneous Notes * Telephone Encounter - 10/30/2002 3:[address] RUFINO sanford * Telephone Encounter - 10/30/2002 2:52 PM EDTCALL RECEIVED. Contact: RX REFILLS MED NAME: ATIVAN DOSAGE: 1 MG # OF TABLETS: 90 INSTRUCTIONS: 1 TAB 3 TIMES DAILY PHARMACY NAME AND TEL#: [facility] INDICATE WHETHER IT IS: Call to outside pharmacy WHEN WAS THE PATIENT'S LAST ADULT MEDICINE APPOINTMENT? 03/18/02 RX RE[facility]LLS MED NAME: SOMA DOSAGE: 350 MG # OF TABLETS: 120 INSTRUCTIONS: 1 TAB 4 TIMES Daily documented in this encounter Plan of Treatment Not on file documented as of this encounter Visit Diagnoses Not on filedocumented in this encounter Care Teams Cardiology Specialist Relationship Specialty Start Date End Date Rufino Duron MD [address] [place] [id number] PCP - General 10/02/1991 05/16/11 Cecil Kee MD [address] [place] [address] 17904 PCP - General Internal Medicine 05/17/11 01/28/16 Sujey Kebede, [address] [place] [address] 74195 PCP - General Internal Medicine 01/29/16 12/27/20 Osiel Archibald MD [address] [place] [address] 68273 PCP - General Internal Medicine 12/28/20 01/13/21 Buzz Harrington, [address] [place] [address] 20694 PCP - General Internal Medicine 01/14/21 01/14/21 Osiel Archibald MD [address] [place] [address] 32896 PCP - General Internal Medicine 01/15/21 02/11/21 Buzz Harrington DO [address] [place] [address] 36968 PCP - General Internal Medicine 02/12/21 04/06/21 Osiel Archibald MD [address] [place] [address] 75595 PCP - General Internal Medicine 04/07/21 11/20/22 [facility], Pcp [address] [place] [address] 57725 PCP - General Internal Medicine 11/21/22 documented as of this encounter
--- OUTSIDE RECORDS SUMMARY | 2025-05-27 07:02 | XMS_ITS | Encounter Summary ---
Author Organization [facility] Address [address] [place] [address] Care Team Providers Care Leather Coverer Name Role Phone Sujey Kebede DO Primary Care Pro vider Unavailable Osiel Archibald MD Primary Care Provider [phone] Buzz Harrington DO Primary Care Provider Elizabeth Osiel Summers MD Primary Care Provider [phone] Buzz Harrington DO Primary Care Provider Elizabeth Osiel Summers MD Primary Care Provider [phone] [facility], Pcp Primary Care Provider Unavailabl e Encounter Details Date Type Department Care Team Description 11/16/2017 Pipe And Boiler Covers Supervisor Report Medical Records [address] [place] [address] Buzz Bocanegra MD Social History Tobacco Use Types Packs/Day [...] on filedocumented in this encounter Care Teams Leather Coverer Relationship Specialty Start Date End Date Sujey Kebede DO PCP - General Internal Medicine 01/29/16 12/27/20 Osiel Archibald MD [address] [place] [address] PCP - General Internal Medicine 12/28/20 01/13/21 Buzz Harrington, [address] [place] [address] 54775 PCP - General Internal Medicine 01/14/21 01/14/21 Osiel Archibald MD [address] [place] [address] PCP - General Internal Medicine 01/15/21 02/11/21 Buzz Harrington, [address] [place], [place] [phone] PCP - General Internal Medicine 02/12/21 04/06/21 Osiel Archibald MD [address] [place] [address]344 PCP - General Internal Medicine 04/07/21 11/20/22 [facility], Pcp [address] [place], [place] [phone] PCP - General Internal Medicine 11/21/22 documented as of this encounter
--- OUTSIDE RECORDS SUMMARY | 2025-05-27 07:02 | XMS_ITS | Encounter Summary ---
Author Organization [facility] Address [address] [place] [address] Care Team Providers Care Courtesy Car Driver Name Role Phone Sujey Kebede DO Primary Care Pro vider Unavailable Osiel Archibald MD Primary Care Provider [phone] Buzz Harrington DO Primary Care Provider Elizabeth Osiel Summers MD Primary Care Provider [phone] Buzz Harrington DO Primary Care Provider Eliazbeth Osiel Summers MD Primary Care Provider [phone] [facility], Pcp Primary Care Provider Unavailabl e Encounter Details Date Type Department Care Team Description 10/08/2018 Card Runner Report Medical Records [address] [place] [id number] Julius Son MD Social History Tobacco Use [...] on filedocumented in this encounter Care Teams Courtesy Car Driver Relationship Specialty Start Date End Date Sujey Kebede DO PCP - General Internal Medicine 01/29/16 12/27/20 Osiel Archibald MD [address] [place] [phone] PCP - General Internal Medicine 12/28/20 01/13/21 Buzz Harrington, [address] [place] [address] 28472 PCP - General Internal Medicine 01/14/21 01/14/21 Osiel Archibald MD [address] [place] [address] PCP - General Internal Medicine 01/15/21 02/11/21 Buzz Harrington, [address] [place] [address] PCP - General Internal Medicine 02/12/21 04/06/21 Osiel Archibald MD [address] [place] [address]106 PCP - General Internal Medicine 04/07/21 11/20/22 [facility], Pcp [address] [place], [place] [phone] PCP - General Internal Medicine 11/21/22 documented as of this encounter
[2025-05-27 10:13] LABS: MANUAL DIFF FLAG NO
[2025-05-27 10:23] LABS: Hematocrit 45.0 % (42.0-52.0); Hemoglobin 14.6 g/dl (14.0-18.0); Imm Gran Abs Auto 0.04 X10*3/uL (0.00-0.03); Imm Gran Pct Auto 0.5 % (0.0-0.4); Lymphocytes Absolute Auto 2.3 X10*3/uL (1.2-4.9); Mean Corpuscular HGB Conc 32.4 g/dl (31.0-36.0); Mean Corpuscular Hemoglobin 27.9 pg (27.0-33.0); Mean Corpuscular Volume 85.9 fL (80.0-98.0); NRBC Abs Auto 0.000 X10*3/uL (0.0-0.012); NRBC Pct Auto 0.0 /100WBC (0.0-0.2); Platelet Count 306 X10*3/uL (160-400); Red Blood Count 5.24 X10*6/uL (4.60-5.80); White Blood Count 7.8 X10*3/uL (4.8-10.8)
[2025-05-27 10:54] LABS: Alanine Aminotransferase 20 U/L (0-40); Albumin Level 4.5 g/dL (3.5-5.0); Alkaline Phosphatase 102 U/L (39-117); Anion Gap 9 (12-20); Aspartate Amino Transferase 33 U/L (5-37); Blood Urea Nitrogen 10 mg/dL (9-16); Calcium 9.5 mg/dL (8.4-10.2); Carbon Dioxide 32 mmol/L (22-29); Chloride 105 mmol/L (96-108); Cholesterol 164 mg/dL (<200); Estimated Glomerular Filt Rate > 60; HDL Cholesterol 47 mg/dL (>40); Potassium 4.3 mmol/L (3.3-5.1); Sodium 142 mmol/L (135-145); Total Protein 7.3 g/dL (6.5-8.0); Triglycerides 114 mg/dL (<150)
[2025-05-27 11:01] LABS: PSA,Total (Free>4and<10) 0.42 ng/mL (0.00-4.00)
[2025-05-27 11:21] LABS: Folate 13.7 ng/mL (> or = 4.0); Vitamin B12 1159 pg/mL (200-900)
== END 2025-05-27 07:00 | disposition home or self-care (01) ==
LOC: HO.HMGCLDS 06:59
PROVIDERS: PCP Internal Medicine; Visit Provider Internal Medicine
DX: Z00.00 Encounter for general adult medical examination without abnormal findings (principal); I10 Essential (primary) hypertension; E78.5 Hyperlipidemia, unspecified; R73.9 Hyperglycemia, unspecified; Z12.5 Encounter for screening for malignant neoplasm of prostate; Z13.21 Encounter for screening for nutritional disorder
CPT/HCPCS: 36415; 80053; 80061; 82306; 82607; 82746; 84153; 85025

== ENCOUNTER 2025-06-02 08:19 | Outpatient (AMB) | payer OTHER, SELFPAY ==
--- NOTE | 2025-06-02 08:34 | MHC.OFFVIS ---
Intake Visit Reasons: 3m PN Allergies venlafaxine (From EFFEXOR) Adverse Reaction (Intermediate, Verified 06/02/25 08:35) itching/rash Medication List - Last Reconciled 06/02/25 by Amelia Barragan CNP acetaminophen 650 mg (2 x 325 mg) PO Q6H PRN 30 days amlodipine 10 mg PO DAILY aspirin 325 mg PO BID 42 days atenolol 50 mg PO DAILY atorvastatin 20 mg PO BEDTIME celecoxib 200 mg PO BID elderberry fruit and flower 460-115 mg 1 cap PO DAILY gabapentin 800 mg PO TID 30 days lisinopril 40 mg PO DAILY omeprazole 20 mg PO DAILY@0630 tramadol 50 mg PO BID 30 days vitamin B complex 1 tab PO DAILY walker Folding front wheeled walker HPI Comments Details: 69-year-old man with h/o alcohol abuse, anxiety, gout, HTN, arthritis, and peripheral neuropathy associated with neuropathic pain. He was doing okay.?Pain was still there. He was staying active and getting ready for the winter. Tramadol helped with pain and helped him to stay active. No falls. Sleep was so-so. [facility] Medical History (Updated 02/27/25 @ 08:29 by Amelia Barragan CNP) Osteoarthritis of left knee Osteoarthritis of right knee Esophageal stricture COVID-19 vaccine series completed Venous insufficiency of both lower extremities H/O ETOH abuse Hyperlipidemia Hypertension Neuropathy Arthritis Peripheral neuropathy Surgical History (Updated 09/23/24 @ 09:10 by Edy [place] MD) Status post total left knee replacement History of total right knee replacement History of esophagogastroduodenoscopy (EGD) Hx of colonoscopy Social History Household Members: Spouse Household Members Other:: , 2 sons Housing: House Are you a primary career and technology education teacher to a significant other at home: No Do you presently have visiting nurse or other home services: Yes Patient Tobacco Use Status: Former Tobacco user Tobacco use type: Cigarette Years Smoked: 27 e-Cigarette/Vaping Use: Never Used Second Hand Smoke Exposure: No Substance Use Type: Marijuana service: No Current occupational status: retired Current occupation: rt handed Cognitive needs: No Hearing needs: No Vision needs: No Review of Systems Const Denies chills, Denies daytime sleepiness, Reports difficulty sleeping, Denies fatigue, Denies fever(s), Denies frequent falls, Denies headache(s), Denies increased appetite, Denies poor appetite, Denies snoring, Denies weakness, Denies weight gain and Denies weight loss Eyes Denies loss of vision ENT Denies vertigo, Denies dizziness and Denies headache(s) Card Denies chest pain at rest, Denies chest pain with activity, Denies syncope, Denies leg edema and Denies palpitations Resp Denies snoring GI Denies constipation, Denies heartburn, Denies diarrhea and Denies nausea Denies urinary frequency, Denies urinary incontinence and Denies urinary urgency Musc Reports abnormal gait (balance difficulty), Reports numbness and Reports tingling Skin/Breast Denies dry skin and Denies rash Neuro Reports abnormal gait (balance difficulty), Denies vertigo, Denies dizziness, Denies syncope, Denies frequent falls, Denies headache(s), Denies lack of coordination, Denies loss of vision, Denies memory loss, Reports numbness, Denies restless legs, Denies seizure-like activity, Reports tingling, Denies paresthesias, Denies tremor(s) and Denies weakness Psych Denies anxiety, Denies depression, Denies auditory hallucinations, Denies memory loss, Denies visual hallucinations and Denies suicidal ideation Endo Denies fatigue and Denies palpitations Physical Exam Const Other: General Appearance:? normal, in no acute distress. Skin:? no rashes, no significant birthmarks. Heart:? S1, S2 normal, no murmurs. Lungs:? clear anteriorly and posteriorly. Extremities:? no edema. Psych:? alert, oriented, cognitive function intact, cooperative with exam. Neuro Other: Mental Status:?Normal attention, orientation, memory and affect.? Cranial Nerves:?Pupils are equal, round and reactive to light. External occular muscles are intact. Visual morin are full. Face is symmetrical. Facial sensations are normal. Tongue is midline. Palate elevates symmetrically. Shoulder shrugging is normal. Hearing to bedside conversation is normal. Sensory Exam:?....? Coordination:?No ataxia,?no titubation.? Gait Exam: Within normal limits. Extrapyramidal System:?No tremor, rigidity with normal facial expressions.? Pronator Drift:?Not present.? Involuntary Movements:?Coarse tremors of outstretched hands, L > R. Speech:?Normal.? 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 NCV/EMG LE 03/05/14 MODERATE TO SEVERE CHRONIC AXONAL SENSORY AND MOTOR PERIPHERAL NEUROPATHY. Assessment & Plan Assessment & Plan (1) Neuropathic pain: Code(s): M79.2 - Neuralgia and neuritis, unspecified Category: Medical Plan: Continue gabapentin 800mg 1 tablet three times a day. Continue tramadol 50mg 1 tablet twice a day. Take medication as prescribed. Follow up in 4 months or sooner as needed. 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
--- OUTSIDE RECORDS SUMMARY | 2025-06-02 08:34 | XMS_ITS | Patient Health Record ---
Author Organization [facility] Address [address] [place] [id number] Care Team Providers Care Assistant Professor In Family Studies Name Role Phone Sujey Yeh Primary Care Provid er Unavailable Buzz Bocanegra Unavailable [phone] Allergies Allergen (clinical drug ingredient) Drug/Non Drug Allergy documented on EMR Reaction Allergy Type Onset Date Status Effexor Unknown Drug Allergy Active Reason For Referral No Information Medications Medication SIG (Take, Route, Frequency, Duration) Notes Start Date End Date Status traMADol HCl Active Mometasone Furoate A ctive Atorvastatin Calcium Active Omeprazole 40 MG Capsule Delayed Release Orally Active Omeprazole 20 MG Tablet Delayed Release 1 tablet Orally Once a day; Duration: 30 Active Gabapentin Active Sildenafil Citrate A ctive Vitamin B12 Active Atenolol 50 MG Tablet 1 tablet Orally On ce a day Active Lisinopril 40mg Acti ve amLODIPine Besylate Active Social History Social History Drugs/Alcohol: Social Info Question Answer Notes Alcohol Screen Did you have a drink containing alcohol in the past year? Yes How often did you have a drink containing alcohol in the past year? 4 or more times a week (4 points) How many drinks did you have on a typical day when you were drinking in the past year? 1 or 2 drinks (0 point) How often did you have 6 or more drinks on one occasion in the past year? Never (0 point) Points 4 Interpretation Positive Additional Details Category Social Info Options Details Miscellaneous: Marital status: Occupation: Retired Section Notes: Nonsmoker > 10 yrs; drinks 6 beers QD Nonsmoker > 10 yrs; 1-2 glas ses of wine QD and occ. drinks beers Problems Problem Type SNOMED Code ICD Code Onset Dates Problem Status W/U Status Risk Notes Problem Gastro-esophagea l reflux disease without esophagitis (423011765) Gastro-esophage al reflux disease without esophagitis (K21.9) Active confirmed Problem Screening for malignant neoplasm of colon (454077592) Encounter for screening for malignant neoplasm of colon (Z12.11) Active confirmed Problem Hiatal hernia (59093698) Hiatal hernia (K44.9) Active confirmed Plan Of Treatment Future Test Test Name Order Date UPPER GI ENDOSCOPY BALLOOON DILATION OF ESOPH 05/16/2013 COLONOSCOPY 11/16/2017 Insurance Providers Payer Name Payer Address Payer Phone Subscriber Number Group Number Insured Name Patient Relationship to Insured Coverage Start Date Coverage End Date [employer] [address] [place] [phone] [id number] ELDA PATHAK Self - patient is the insured Medical (General) History Medical History History ICD Code EGD with removal of foreign body on 02-25-13--food bolus-had a distal esophageal stricture and esophagitis; F/U EGD 05/2013 with dilation of the stricture, hiatal hernia, no esophagitis nor Connelly's esophagus Gout Lower extremity edema Hypertension Denies DC,DM,CVA,Lung disease,renal dise ase Surgical History Surgery Date(Month/Year) Cataracts bilateral--2018 Vein surgery-
== END 2025-06-02 08:40 | disposition home or self-care (01) ==
LOC: HO.HSM 08:19
PROVIDERS: PCP Internal Medicine; Visit Provider Registered Nurse
DX: M79.2 Neuralgia and neuritis, unspecified (principal); G62.1 Alcoholic polyneuropathy
CPT/HCPCS: 99214

== ENCOUNTER 2025-06-03 08:27 | Outpatient (AMB) | payer OTHER, SELFPAY ==
--- NOTE | 2025-06-03 08:29 | MHC.PC.OV ---
Vital Signs 06/03/25 08:31 Height 6 ft 3 in Weight 257 lb BMI 32.1 BP 126/78 Blood Pressure Location Lt brachial Position Sitting Respiration 16 Pulse 69 Pulse Source Pulse Oximeter Temp 98.5 F Temp Source Oral Pulse Oximetry (%) 97 Oxygen Delivery Method Room Air Intake Visit Reasons: Annual PE Intake Note: Pt is here today for PE. Allergies venlafaxine (From EFFEXOR) Adverse Reaction (Intermediate, Verified 06/02/25 08:35) itching/rash Medication List - Last Reconciled 06/03/25 by Radha Aguayo MD acetaminophen 650 mg (2 x 325 mg) PO Q6H PRN 30 days amlodipine 10 mg PO DAILY aspirin 325 mg PO BID 42 days atenolol 50 mg PO DAILY atorvastatin 20 mg PO BEDTIME celecoxib 200 mg PO BID clobetasol 0.05% 1 appl topical DAILY 2 weeks elderberry fruit and flower 460-115 mg 1 cap PO DAILY gabapentin 800 mg PO TID 30 days lisinopril 40 mg PO DAILY omeprazole 20 mg PO DAILY@0630 tramadol 50 mg PO BID 30 days vitamin B complex 1 tab PO DAILY walker Folding front wheeled walker Tobacco use date assessed: 06/03/25 Fall risk assessment: No Falls in past year Last assessed Fall Risk: 06/03/25 Dental Screening Dental Screen Date: 06/03/25 Did you have a dental visit in the last 12 months?: Yes Did you have a dental problem in the last 6 months where you did not have access to dental care?: No Was dental information given to patient?: Patient has dentist HPI Annual PE HPI Details pt presents for PE. PFSH Medical History Osteoarthritis of left knee Osteoarthritis of right knee Esophageal stricture COVID-19 vaccine series completed Venous insufficiency of both lower extremities H/O ETOH abuse Hyperlipidemia Hypertension Neuropathy Arthritis Peripheral neuropathy Surgical History Status post total left knee replacement History of total right knee replacement History of esophagogastroduodenoscopy (EGD) Hx of colonoscopy Social History Household Members: Spouse Household Members Other:: , 2 sons Housing: House Are you a primary home health care worker to a significant other at home: No Do you presently have visiting nurse or other home services: Yes Patient Tobacco Use Status: Former Tobacco user Tobacco use type: Cigarette Years Smoked: 27 e-Cigarette/Vaping Use: Never Used Second Hand Smoke Exposure: No Substance Use Type: Marijuana service: No Current occupational status: retired Current occupation: rt handed Cognitive needs: No Hearing needs: No Vision needs: No Questionnaire PHQ-9 Over the last 2 weeks, how often have you been bothered by any of the following problems? 1. Little interest or pleasure in doing things: not at all 2. Feeling down, depressed, or hopeless: several days 3. Trouble falling or staying asleep, or sleeping too much: several days 4. Feeling tired or having little energy: several days 5. Poor appetite or overeating: not at all 6. Feeling bad about yourself - or that you are a failure or have let yourself or your family down: not at all 7. Trouble concentrating on things, such as reading the newspaper or watching television: not at all 8. Moving or speaking so slowly that other people could have noticed. Or the opposite - being so fidgety or restless that you have been moving around a lot more than usual: not at all 9. Thoughts that you would be better off or of hurting yourself in some way: not at all Total score: 3 Depression Screening Interpretation: Negative Depression Screening Done: Yes 33238 - PHQ-9 Billing: Yes Source: Developed by Drs. Buzz Peoples, Amisha Bennett, Osmar Patel and colleagues, with an educational krystle from [employer]. Thrive Questionnaire Date Thrive assessed: 06/03/25 I am a: Patient What is your living situation today?: I have a steady place to live Within the past 12 months, did the food you bought not last and you didn't have the money to get more?: Never true Within the past 12 months, did you worry whether your food would run out before you got money to buy more?: Never true Do you have trouble paying for medicines?: No Do you have trouble getting transportation to medical appointments?: No Do you have trouble paying your heating and electricity bill?: No Do you have trouble taking care of your child, family member or friend?: No Do you have trouble with day-to-day activities such as bathing, preparing meals, shopping, managing finances, etc.?: No Are you currently unemployed and looking for a job?: No Are you interested in more education?: No Please select the resources that you would like help with: None Currently or been in a relationship where the following occur: No concerns reported THRIVE Score: 0 AUDIT C Alcohol Use Questionnaire (AUDIT-C) 1. How often do you have a drink containing alcohol?: Never Total Score: 0 DAVID-7 AMB Questionnaire DAVID-7 Date DAVID - 7 assessed: 06/03/25 Feeling nervous, anxious, or on edge: 0 = Not at all Not being able to stop or control worryin = Not at all Worrying too much about different things: 0 = Not at all Trouble relaxin = Several days Being so restless that it is hard to sit still: 0 = Not at all Becoming easily annoyed or irritable: 1 = Several days Feeling afraid as if something awful might happen: 0 = Not at all Total DAVID-7 score (0-4 normal; 5-9 mild; 10-14 moderate; 15-21 severe): 2 Source: Developed by Drs. Buzz Peoples, Amisha Bennett, Osmar Patel and colleagues, with an educational krystle from [employer]. DAVID-7 Assessment Billing DAVID-7 Assessment Tool: DAVID-7 Assessment 22761 Review of Systems Const All systems reviewed & are unremarkable except as noted in HPI and below Eyes Reports no additional complaints ENT Reports no additional complaints Card Reports no additional complaints Resp Reports no additional complaints GI Reports no additional complaints Reports no additional complaints Physical exam (Primary Care) Vital Signs: Last Vital Signs Temp 98.5 F 06/03/25 08:31 Pulse 69 06/03/25 08:31 Resp 16 06/03/25 08:31 BP 126/78 06/03/25 08:31 Pulse Ox 97 06/03/25 08:31 Oxygen Delivery Method Room Air 06/03/25 08:31 BMI result Body Mass Index 32.1 Tobacco/Smoking Status: Tobacco use Status Tobacco use date assessed 06/03/25 06/03/25 08:38 Patient Tobacco Use Status Former Tobacco user 06/03/25 08:29 Tobacco use type Cigarette 06/03/25 08:29 e-Cigarette/Vaping Use Never Used 06/03/25 08:29 PHQ-9: PHQ-9 Score PHQ-9: Total score 3 06/03/25 08:38 Depression Screening Interpretation: Negative Thrive Assessment: Date of Thrive Assessment Date Thrive assessed 06/03/25 06/03/25 08:38 Currently or been in a relationship where the following occur: No concerns reported Const General: no acute distress HENMT Head: Yes normal to inspection Ears: TM's normal bilaterally Face and sinus: Yes normal facial exam Mouth: Normal oral and palatal mucosa present Throat: Yes posterior oropharynx normal Eyes General: appearance normal, both eyes and all related structures Neck Neck: Yes no lymphadenopathy and Yes supple Resp Effort & Inspection: normal respiratory effort Auscultation: clear to auscultation bilaterally Cardio Rhythm: regular rhythm Heart sounds: S1 normal heart sound present and S2 normal heart sound present GI Inspection: Yes normal to inspection Palpation (GI): Soft to palpation Percussion: Yes normal to percussion Auscultation: normal bowel sounds Skin Other: Multiple nevi on the upper back, Extrem Other: Nonpitting edema and bilateral chronic venous stasis changes on lower extremities Coding Level of Care Code Est Pt Prev Care >65y(84528) Diagnoses Dysplastic nevi D23.9 Neuropathy G62.9 Hypertension I10 Hyperlipidemia E78.5 Annual physical exam Z00.00 Additional Codes DAVID-7 Assessment Billing - DAVID-7 Assessment Tool: DAVID-7 Assessment 72930 ([id number]) PHQ-9 - 51625 - PHQ-9 Billing: Yes ([id number]) Assessment & Plan Assessment & Plan (1) Dysplastic nevi: Code(s): D23.9 - Other benign neoplasm of skin, unspecified Category: Medical Plan: Referred to dermatology (2) Neuropathy: Comment: Secondary to ETOH abuse, controlled on tramadol and gabapentin [place] [facility] [employer] Code(s): G62.9 - Polyneuropathy, unspecified Category: Medical Plan: Follow-up with [facility] (3) Hypertension: Code(s): I10 - Essential (primary) hypertension Category: Medical Plan: Continue current medications (4) Hyperlipidemia: Code(s): E78.5 - Hyperlipidemia, unspecified Category: Medical Plan: Continue statin (5) Annual physical exam: Code(s): Z00.00 - Encounter for general adult medical examination without abnormal findings Category: Medical Plan: Well-balanced diet regular physical activity discussed with the patient. He had negative colonoscopy in 2018 Orders: Orders Complete Blood Count Auto Diff 1 Year E78.5 - Hyperlipidemia, unspecified, G62.9 - Polyneuropathy, unspecified, I10 - Essential (primary) hypertension, R73.9 - Hyperglycemia, unspecified Vitamin B12 and Folate 1 Year E78.5 - Hyperlipidemia, unspecified, G62.9 - Polyneuropathy, unspecified, I10 - Essential (primary) hypertension, R73.9 - Hyperglycemia, unspecified Comprehensive [place]. Panel Fast 1 Year E78.5 - Hyperlipidemia, unspecified, G62.9 - Polyneuropathy, unspecified, I10 - Essential (primary) hypertension, R73.9 - Hyperglycemia, unspecified Lipid Panel 1 Year E78.5 - Hyperlipidemia, unspecified, G62.9 - Polyneuropathy, unspecified, I10 - Essential (primary) hypertension, R73.9 - Hyperglycemia, unspecified PSA,Total (Free>4and<10) 1 Year E78.5 - Hyperlipidemia, unspecified, G62.9 - Polyneuropathy, unspecified, I10 - Essential (primary) hypertension, R73.9 - Hyperglycemia, unspecified UA w Microscopic 1 Year E78.5 - Hyperlipidemia, unspecified, G62.9 - Polyneuropathy, unspecified, I10 - Essential (primary) hypertension, R73.9 - Hyperglycemia, unspecified Referrals Dermatology Referral D23.9 - Other benign neoplasm of skin, unspecified Medications: New clobetasol 0.05% 1 appl topical DAILY 45 grams 0RF 2 weeks Refilled amlodipine 10 mg PO DAILY 90 tabs 3RF lisinopril 40 mg PO DAILY 90 tabs 3RF atorvastatin 20 mg PO BEDTIME 90 tabs 3RF
--- OUTSIDE RECORDS SUMMARY | 2025-06-03 08:29 | XMS_ITS | Patient Health Record ---
Author Organization [facility] Address [address] [place] [id number] Care Team Providers Care Cripple Chaser Name Role Phone Sujey Yeh Primary Care Provid er Unavailable Buzz Bocanegra Unavailable [phone] Allergies Allergen (clinical drug ingredient) Drug/Non Drug [...] Problem Gastro-esophagea l reflux disease without esophagitis (445020110) Gastro-esophage al reflux disease without esophagitis (K21.9) Active confirmed Problem Screening for malignant neoplasm of colon (423809719) Encounter for screening for malignant neoplasm of colon (Z12.11) Active confirmed Problem Hiatal hernia (64672979) Hiatal hernia (K44.9) Active confirmed Plan Of Treatment Future Test Test Name Order Date UPPER GI ENDOSCOPY BALLOOON DILATION OF ESOPH 05/16/2013 COLONOSCOPY 11/16/2017 Insurance Providers Payer Name Payer Address Payer Phone Subscriber Number Group Number Insured Name Patient Relationship to Insured Coverage Start Date Coverage End Date [employer] [address] [place] [phone] [id number] ELDA PATHAK Self - patient is the insured Medical (General) History Medical History History ICD Code EGD with removal of foreign body on 02-25-13--food bolus-had a distal esophageal stricture and esophagitis; F/U EGD 05/2013 with dilation of the stricture, hiatal hernia, no esophagitis nor Connelly's esophagus Gout Lower extremity edema Hypertension Denies [place],DM,CVA,Lung disease,renal dise ase Surgical History Surgery Date(Month/Year) Cataracts bilateral--2018 Vein surgery-
[2025-06-03 08:31] VITALS: BP 126/78; PULSE 69; RESP 16; TEMP 36.9; O2SAT 97; BMI 32.1
== END 2025-06-03 09:09 | disposition home or self-care (01) ==
PROVIDERS: PCP Internal Medicine; Visit Provider Internal Medicine
DX: Z00.00 Encounter for general adult medical examination without abnormal findings (principal); D23.9 Other benign neoplasm of skin, unspecified; G62.9 Polyneuropathy, unspecified; I10 Essential (primary) hypertension; E78.5 Hyperlipidemia, unspecified

== ENCOUNTER → 2025-06-03 08:27 | Outpatient (BNVA) | payer OTHER, SELFPAY | PROVIDERS: PCP Internal Medicine; Visit Provider Internal Medicine | DX: Z00.00 Encounter for general adult medical examination without abnormal findings (principal); D23.9 Other benign neoplasm of skin, unspecified; G62.9 Polyneuropathy, unspecified; I10 Essential (primary) hypertension; E78.5 Hyperlipidemia, unspecified | CPT/HCPCS: 96127 ==